=== PATIENT | male | born 1975 | race Caucasian/White ===

== ENCOUNTER 2020-12-28 12:48 | Inpatient (IN) | payer MEDICARE, MEDICAID ==
[~2020-12-28] VITALS: Ht 193 cm; Wt 64.9 kg
[2020-12-28 12:49] VITALS: BP 107/72
[2020-12-28] MEDS ORDERED: LEVE500T99 PO (13:13)
[2020-12-28] MEDS ORDERED: CREONC PO ×2 (13:15→14:03)
[2020-12-28] MEDS ORDERED: NF-SODBICA PO (13:18)
[2020-12-28] MEDS ORDERED: PETR113O TP (13:18)
[2020-12-28] MEDS ORDERED: ALLO100T56 PO (13:19)
[2020-12-28] MEDS ORDERED: CALC0.5C3 PO (13:22)
[2020-12-28] MEDS ORDERED: CALC200T2 PO (13:24)
[2020-12-28] MEDS ORDERED: CHOL200074 PO (13:27)
[2020-12-28] MEDS ORDERED: KETO15CR2 TP (13:31)
[2020-12-28] MEDS ORDERED: KETO120S13 TP (13:37)
[2020-12-28] MEDS ORDERED: PROTONIX DR (13:39)
[2020-12-28] MEDS ORDERED: PROTONIX DR PO (13:41)
[2020-12-28] MEDS ORDERED: PRED5TAB PO (13:42)
[2020-12-28] MEDS ORDERED: TACR1CAP24 PO (13:45)
[2020-12-28] MEDS ORDERED: TERI202.4P SQ ×2 (13:48→16:29)
[2020-12-28] MEDS ORDERED: EPOE10008 IJ (13:51)
[2020-12-28] MEDS ORDERED: LACTULOSE SYRUP 10GM/15ML (ENULOSE) 30ML UDC PO PRN (14:00)
[2020-12-28] MEDS ORDERED: FLEET ENEMA ADULT 1 EA BTL PR PRN (14:00)
[2020-12-28] MEDS ORDERED: DOCUSATE SODIUM 100 MG (COLACE) CAP PO PRN (14:00)
[2020-12-28] MEDS ORDERED: BISACODYL 10 MG SUPP (DULCOLAX) PR PRN (14:00)
[2020-12-28] MEDS ORDERED: CALCIUM CARBONATE 500 MG (TUMS) TAB.CHEW PO PRN (14:00)
[2020-12-28] MEDS ORDERED: ONDANSETRON 4 MG (ZOFRAN) ORAL DISSOLVE TAB PO PRN (14:00)
[2020-12-28] MEDS ORDERED: ALPRAZolam 0.25 MG (XANAX) TAB PO PRN (14:00)
[2020-12-28] MEDS ORDERED: guaiFENesin/CODEINE (ROBITUSSIN AC) 10ML UDC PO PRN (14:00)
[2020-12-28] MEDS ORDERED: diphenhydrAMINE 25 MG TAB (BENADRYL) PO PRN (14:00)
[2020-12-28] MEDS ORDERED: MVI PO (14:06)
--- NOTE | 2020-12-28 14:07 | PM&R Post Admission Assessment ---
PM&R HP Date of Visit: Dec 28, 2020 Time of Visit: 15:30 History of Present Illness CC: Critical illness myopathy HPI: This is a 45yoWM with mild intellectual deficit who resides with his brother and his family who presents to the IRF after a complicated hospital course at [facility] after admitted on 12/14/20 due to sepsis from severe dehydration from severe diarrhea s/p sigmoidoscopy and ultimately revealing Noravirus on stool culture. Patient received renal transplant in 2013 and is on chronic immunosuppression. Patient did experience a seizure on 12/15 and 12/19 and maintained on Keppra. I met his brother who reports he just moved to a new house where there is 2 master bedrooms and patient will live with his brother and his family upon DC from IRF. Patient reports pain is stable at this current time and it appears Creon has been very successful in managing the diarrhea. Neuroendocrine tumor w/u was initiated and no evidence of tumor found. Patient will receive structured PT OT in order to regain function and return to independence. [facility] note: Zacarias Boyd is a 45 y.o. male with PMH of ESRD / PKD s/p DDRT 09/2014 ( on chronic immunosuppression) and mild cognitive impairment who presented with chronic diarrhea complicated by severe malnutrition and electrolyte derangements. Rapid responded 12/15 due to hypothermia and transferred to the ICU with concern for sepsis. While in the ICU, due to concern for sepsis, patient was started on vancomycin, cefepime and micafungin. ID was consulted and discontinued antibiotics eventually. Extensive infectious disease work-up was completed. ENT consulted due to Otomastoiditis seen on CT on admission noted but no treatment recommend. He developed seizures (12/15 and 12/19) in which neurology was consulted and he was loaded with Keppra. Seizures believed to be secondary to cefepime, which he was on empirically for septic shock lowering seizure threshold. While in the ICU, patient required a bicarb drip. GI c onsulted for work up of chronic diarrhea and performed flex sig 12/23, which revealed normal findings. GI started patient on Creon and this will be continued for 6 weeks. Diarrhea improved prior to discharge. Hematology was consulted for pancytopenia, though believed condition was likely due to new metastatic neuroendocrine tumor, as Chromogranin A level elevated (likely falsely positive per Oncology due to patient being on chronic PPI and chronic liver disease). Octreotide scan did not reveal somatostatin receptor-positive mass. MRI abdomen w/wo contrast did not reveal malignant mass. Hematology recommended oncology consult. Oncology was consulted and recommended PET scan outpatient to follow-up octreotide scan and further work-up for any concerns for malignancy. Transplant nephrology consulted and assisted with immunosuppression. Patient was discharged on prednisone 5 mg daily. MPA was held during the hospitalization and upon discharge. Work-up from ID recs revealed norovirus positive PCR in the stool. Patient diarrhea improved throughout hospitalization. PT/OT recommended short tern SNF placement. Patient was stable upon discharge. noe: Zacarias Boyd Date Of : 1975 Age: 45 years Admit date: 12/14/2020 Discharge date: 12/28/2020 Discharge Attending: Dr. 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 Biopsied. Retroflexion not attempted secondary to stool burden. - 12/14 chromogranin A elevated at 2598, pancreatic elastate-1 220, gastrin elevated at 292, calprotectin elevated at 605, VIP wnl, - 12/22 repeat CMV PCR <50 from 84 12/15, adenovirus PCR stool negative, - 12/23 CT chest wo contrast ordered to evaluate for metastatic neuroendocrine tumor. Revealed no thoracic LN, few tiny pulm nodules likely benign), small bilateral pleural effusion. Will need f/u CT in 3-6 months to ensure stability of nodules - 12/24 MRI abdomen w/wo contrast without pancreatic mass/lesion, diffuse low signal throughout osseous structures could represent renal osteodystrophy, small bilateral pleural effusions with mild ascites - 12/22 norovirus PCR positive, though patient no longer having diarrhea. Tr opheryma whipplei serum negative, microsporidia PCR negative - 12/25 octreotide scan with no somatastatin receptor-positive mass - CT head (12/15) significant for right mastoid and middle ear effusions c/w otomastoiditis. No bleed or mass effect - FK506 tacro level elevated (22, 17) - EEG indicative of severe encephalopathy, no active seizure activity -12/19 Cryptococcal Ag neg, HSV 1&2 CSF PCR, EBV PCR negative, Enterovirus PCR inconclusive (presence of an inhibitor) - 12/20 MRI head: Focal juxtacortical FLAIR hyperintensity within the deep right superior temporal gyrus. While indeterminate, leading considerations include focal cortical dysplasia, solitary demyelinating lesion, atypical gliotic sequelae of nonspecific prior insult, or low-grade glioma. MRI brain (3T) with and without contrast, epilepsy protocol, could be performed for further evaluation - iron panel with normal iron of 96 and ferritin elevated at 597 - B12 and folate wnl - HIV negative - LDH 120, retic decreased, haptoglobin normal - INR 1.4, PTT wnl - Peripheral smear with normocytic anemia - EBV, parvo negative Significant Pathology: none Nutrition: Dietitian Documentation ICD-10 code E43: Acute illness/Severe malnutrition Weight loss: > 7.5% x 3 months, Energy intake: < 50% of estimated energy requirement for 5 days or more, Moderate loss of muscle mass Loss of Subcutaneous Fat: Yes Mild Orbital, Triceps Muscle Wasting: Yes Severe [place], Clavicle, Interosseous Edema: Yes Mild Left, Lower extremities, Right Malnutrition Interventions: Regular diet + Boost Plus TID + encouraged oral intake Discharge Disposition, Condition Patient Disposition: Residential Facility Condition at Discharge: Stable Dec 30, 2020 8:20 AM Telehealth PT Return with Erika Foote MD Endocrinology: [facility] (Internal Medicine) [address] [place] [address]. [address] [facility] [id number] Dec 30, 2020 3:15 PM Telehealth Clinical Support Return with IM MEDICAL NUTRITION THERAPY Internal Medicine: [facility] (Internal Medicine) [address] [facility] [phone] Jan 08, 2021 9:20 AM Telehealth PT New with Donnell Smith MD Gastroenterology: [facility] (Internal Medicine) [address] [facility] [id number] Additional appointment instructions: Follow up with PCP in 5-7 days. Medication List START taking these medications epoetin julio-epbx 10,000 unit/mL injection; Commonly known as: RETACRIT; Dose: 10,000 Units; Inject 1 mL under the skin three times weekly. Indications: anemia in chronic kidney disease; For: anemia in chronic kidney disease; Quantity: 1 each; Refills: 0; Start taking on: December 29, 2020 levETIRAcetam 500 mg tablet; Commonly known as: KEPPRA; Dose: 500 mg; Take one tablet by mouth twice daily.; Quantity: 60 tablet; Refills: 1 scvtlu-goitrdrh-hooldqb 6,000-19,000 -30,000 units capsule; Commonly known as: CREON 6000; Dose: 1 capsule; Take one capsule by mouth three times daily with meals.; Quantity: 90 capsule; Refills: 1 sodium bicarbonate 650 mg tablet; Dose: 650 mg; Take one tablet by mouth three times daily.; Quantity: 90 tablet; Refills: 0 vitamin A & D Oint; Apply topically to affected area as Needed.; Quantity: 1 Tube; Refills: 0 CHANGE how you take these medications cholecalciferol 50 mcg (2,000 unit) tablet; Commonly known as: VITAMIN D3; Dose: 2,000 Units; Take one tablet by mouth daily.; Quantity: 90 tablet; Refills: 3; What changed: when to take this * ketoconazole 2 % topical cream; Commonly known as: NIZORAL; Apply to rash twice daily on the face until resolved.; Quantity: 60 g; Refills: 11; What changed: when to take this, reasons to take this * ketoconazole 2 % topical shampoo; Commonly known as: NIZORAL; Apply topically to chest and back on damp skin, lather, leave on 5 minutes, and rinse.; Quantity: 120 g; Refills: 11; What changed: when to take this, reasons to take this * This list has 2 medication(s) that are the same as other medications prescribed for you. Read the directions carefully, and ask your doctor or other care provider to review them with you. CONTINUE taking these medications allopurinoL 100 mg tablet; Commonly known as: ZYLOPRIM; Dose: 50 mg; Doctor's comments: 03/13/2019 9:09:32 AM; Take one-half tablet by mouth daily. This is a reduced dose from your previous regimen.; Quantity: 45 tablet; Refills: 1 CALCITRATE 950 mg Tab; Generic drug: calcium citrate; Dose: 3,800 mg; Take four tablets by mouth with meals and at bedtime.; Quantity: 300 tablet; Refills: 1 calcitrioL 0.5 mcg capsule; Commonly known as: ROCALTROL; Dose: 1 mcg; Take two capsules by mouth twice daily.; Quantity: 60 capsule; Refills: 3 FORTEO 20 mcg/dose (600mcg/2.4mL) Pnij injection pen; Generic drug: teriparatide; Dose: 20 mcg; Inject twenty mcg under the skin daily.; Quantity: 3 mL; Refills: [address] 40 mg tablet; Commonly known as: PROTONIX; Dose: 40 mg; Take one tablet by mouth twice daily.; Quantity: 60 tablet; Refills: 3 predniSONE 5 mg tablet; Commonly known as: DELTASONE; Dose: 5 mg; TAKE ONE TABLET BY MOUTH DAILY. INDICATIONS: PREVENT KIDNEY TRANSPLANT REJECTION; For: prevent kidney transplant rejection; Quantity: 30 tablet; Refills: 10 tacrolimus 1 mg capsule; Commonly known as: PROGRAF; Dose: 3 mg; Doctor's comments: CORINA [id number] ICD 10 Z94.0 Dose change; place to file; Take three capsules by mouth twice daily.; Quantity: 540 capsule; Refills: 3 vitamins, multiple tablet; Dose: 1 tablet; Take 1 Tab by mouth daily.; Quantity: 90 Tab; Refills: 3 STOP taking these medications carvediloL 6.25 mg tablet; Commonly known as: COREG clindamycin 1 % topical solution; Commonly known as: CLINDA-DERM EPOGEN 10,000 unit/mL injection; Generic drug: epoetin julio ferrous sulfate 325 mg (65 mg iron) tablet; Commonly known as: FEOSOL loperamide 2 mg capsule; Commonly known as: IMODIUM A-D mycophenolate DR 180 mg Tbec tablet; Commonly known as: MYFORTIC Past Zlxgnsb-Qdldre-Omxphv Hx Past Med/Social Hx: Reviewed Nursing Past Med/Soc Hx, Reviewed and Corrections made Patient Social History Marrital Status: single Employed/Student: unemployed Alcohol Use: Denies Use Smoking Status: Never a Smoker Past Medical History Surgeries: Kidney Transplant (2013) Neurological: Developmental Disorder, Seizure Disorder (12/15/20 new onset) Genitourinary: Renal Failure, Dialysis, Polycystic Kidney Disease Gastrointestinal: Chronic Diarrhea Current Level of Fuctioning Mode of Locomotion: Wheelchair PM&R Allergy/Meds/Data Review Allergies Coded Allergies: No Known Allergies (Verified Allergy, Unknown, 12/28/20) Home Medications Scheduled Allopurinol (Zyloprim), 50 MG PO DAILY Calcitriol (Rocaltrol), 0.5 MCG PO 2 CAPSULES PO BID Calcium Citrate (Calcitrate), 950 MG PO 4 TABLETS PO W MEALS Cholecalciferol (Vitamin D3) (Vitamin D3), 50 MCG PO DAILY Epoetin Julio-Epbx (Retacrit), 10,000 UNIT IJ [id number] Ketoconazole (Ketoconazole), 15 GM TP BID TO FACE UNTIL R Ketoconazole (Ketoconazole), 120 ML TP HS Levetiracetam (Keppra), 500 MG PO BID Lipase/Amylase/Protease (Creon Dr 6,000 Units Capsule), 1 EA PO TIDWM Petrolatum,White/Lanolin (Vitamin A & D Ointment), 113 GM TP PRN Prednisone (Prednisone), 5 MG PO DAILY Sodium Bicarbonate (Sodium Bicarbonate), 650 MG PO TID Tacrolimus (Prograf), 3 MG PO BID Teriparatide (Forteo), 20 MCG SQ DAILY [Mvi], 1 TAB PO DAILY [Protonix Dr], 1 PO BID Current Medications Current Medications Reviewed Review of Systems Constitutional: see HPI, malaise, weakness EENTM: no symptoms reported Respiratory: no symptoms reported Cardiovascular: no symptoms reported Gastrointestinal: no symptoms reported Genitourinary: no symptoms reported Musculoskeletal: back pain, joint pain Skin: no symptoms reported Psychiatric/Neurological: Emotional Problems, Seizure All Other Systems Reviewed Negative Unless Noted: Yes Physical Exam Physical Exam Vital Signs Vital Signs - First Documented 12/28/20 12:49 Temp 36.8 Pulse 93 Resp 22 B/P (MAP) 107/72 (84) Pulse Ox 99 O2 Delivery Room Air Capillary Refill : Height, Weight, BMI Height: '" Weight: lbs. oz. kg; BMI Method: General Appearance: No Apparent Distress, WD/WN, Anxious, Chronically ill, Thin, Other (pale, fatigued) Eyes: Bilateral Eye Normal Inspection, Bilateral Eye PERRL HEENT: PERRL/EOMI, Normal ENT Inspection, Pharynx Normal Neck: Full Range of Motion, Normal Inspection, Non Tender, Supple, Carotid Bruit Respiratory: Chest Non Tender, Lungs Clear, Normal Breath Sounds, No Accessory Muscle Use, No Respiratory Distress Cardiovascular: Regular Rate, Rhythm, No Gallop, No JVD, No Murmur, Normal Peripheral Pulses Gastrointestinal: Normal Bowel Sounds, No Organomegaly, No Pulsatile Mass, Non Tender, Soft Back: Normal Inspection, No CVA Tenderness, No Vertebral Tenderness Extremity: Normal Capillary Refill, Normal Inspection, Normal Range of Motion, Non Tender, No Calf Tenderness, Pedal Edema Neurologic/Psychiatric: Alert, Oriented x3, Normal Mood/Affect, network programmer II-XII Norm as Tested, Abnormal Gait, Disoriented, Motor Weakness (decreased extremities 4/5) Skin: Normal Color, Warm/Dry Lymphatic: No Adenopathy PM&R Medical Assessment & Plan REHAB/MEDICAL ASSESSMENT AND PLAN: REHAB IMPAIRMENT GROUP: Myopathy ETIOLOGIC DIAGNOSIS: Myopathy The comorbidities that impact the patients function and/or functional outcome by: intellectual delay, immunosuppression, renal transplant, severe diarrhea REHAB PLAN: The patient is being admitted to our comprehensive inpatient rehabilitation facility and can tolerate the intensity of service consisting of at least: 180 minutes of therapy a day, 5 out of 7 days a week Rehab treatment will consist of: PT OT will focus on regaining function and kenyatta ble him to return to independent living with his brother and his family The patient/family has a good understanding of our discharge process and will benefit from an interdisciplinary inpatient rehabilitation program. The patient has potential to make improvement and is in need of at least two of the following multidisciplinary therapies including but not limited to physical, occupational, speech, and prosthetics and orthotics. Additionally the patient will need services from respiratory, nutritional services, wound care, psychology, etc. (Customize this to each patient). Given the patients complex condition and risk of further medical complications, rehabilitation services cannot be safely or effectively provided at a lower level of care such as a senior care facility. BARRIERS TO DISCHARGE: Intellectual delay ESTIMATED LOS: 14 days DISPOSITION: Home RELEVANT CHANGES SINCE PREADMISSION SCREENING: I have compared the patients medical and functional status at the time of the preadmission screening and there are: no changes PROGNOSIS: Improved REHABILITATION GOALS: 1. PT OT will focus on regaining function and enable him to return to independent living with his brother and his family All the above goals were reviewed with the patient and he/she is in agreement. By signing this document, I acknowledge that I have personally performed a full physical examination on this patient within 24 hours of admission to this inpatient rehabilitation facility and have determined the patient to be able to tolerate the above course of treatment at an intensive level for a reasonable period of time. I will be completing a detailed individualized Plan of Care for this patient by day #4 of the patients stay based upon the Preadmission Screen, the Post-Admission Evaluation, and the therapy evaluations. Admission Dx/Comorbidities: (1) Myopathy ICD Codes: G72.9 - Myopathy, unspecified (2) Seizure ICD Codes: R56.9 - Unspecified convulsions (3) Chronic diarrhea ICD Codes: K52.9 - Noninfective gastroenteritis and colitis, unspecified (4) Hypocalcemia ICD Codes: E83.51 - Hypocalcemia (5) Renal transplant recipient ICD Codes: Z94.0 - Kidney transplant status (6) PKD (polycystic kidney disease) ICD Codes: Q61.3 - Polycystic kidney, unspecified (7) Intellectual disability ICD Codes: F79 - Unspecified intellectual disabilities (8) Hypomagnesemia ICD Codes: E83.42 - Hypomagnesemia (9) Anemia ICD Codes: D64.9 - Anemia, unspecified (10) Buttock wound ICD Codes: S31.809A - Unspecified open wound of unspecified buttock, initial encounter (11) Port-A-Cath in place ICD Codes: Z95.828 - Presence of other vascular implants and grafts (12) Cachexia ICD Codes: R64 - Cachexia (13) Vitamin D deficiency ICD Codes: E55.9 - Vitamin D deficiency, unspecified (14) Steroid dependence ICD Codes: F19.20 - Other psychoactive substance dependence, uncomplicated Assessment/Plan Assessment and Plan Assess & Plan/Chief Complaint Assessment: Myopathy Intellectual disability Cachexia Seizure d/o 12/15/20 new onset Chronic diarrhea Anemia Hypocalcemia Metabolic acidosis Prednisone dependence Plan: IRF protocol Check labs Monitor pain Seizure precautions ORAL RIVERA DO Dec 28, 2020 14:07
[2020-12-28] MEDS ORDERED: EPOETIN ALFA EPBX 10000 UNIT IJ SCH (15:15)
[2020-12-28] MEDS ORDERED: PATIENT MAY USE OWN MEDS, ALL MC SCH ×2 (15:30→16:15)
[2020-12-28] MEDS ORDERED: A & D OINT 113 GM TUBE TOP SCH (15:30)
[2020-12-28 17:32] VITALS: BP 128/83
[2020-12-28] MEDS: CALCIUM CITRATE 950 MG PO SCH (18:21)
[2020-12-28] MEDS: LIPASE/AMYLASE/PROTEASE (PANCRELIPASE) 5,000 UNITS CAP PO SCH (18:21)
[2020-12-28] MEDS ORDERED: KETOCONAZOLE 2% CREAM 15 GM (NIZORAL) TP SCH (21:00)
[2020-12-28] MEDS ORDERED: KETOCONAZOLE TP SCH (21:00)
[2020-12-28] MEDS: SENNA W/DOCUSATE (SENOKOT S) TABLET PO SCH (21:23)
[2020-12-28] MEDS: CALCITRIOL 0.25 MCG (ROCALTROL) CAPSULE PO SCH (21:23)
[2020-12-28] MEDS: PANTOPRAZOLE 40 MG (PROTONIX) TAB PO SCH (21:23)
[2020-12-28] MEDS: SODIUM BICARBONATE 650 MG TABLET (NON-FORMULARY) PO SCH (21:25)
[2020-12-28] MEDS: DOCUSATE SODIUM 100 MG (COLACE) CAP PO SCH (21:25)
[2020-12-28] MEDS: TACROLIMUS 1 MG (PROGRAF) CAP NON-FORMULARY PO SCH (21:26)
[2020-12-28] MEDS: polyethylene glycoL POWDER 17 GM (MIRALAX) PACK PO SCH (21:26)
[2020-12-29 05:45] LABS: BASOPHILS % (AUTO) 0 % (0-10); EOSINOPHILS # (AUTO) 0.1 10^3/uL (0.0-0.3); EOSINOPHILS % (AUTO) 3 % (0-10); HEMATOCRIT 28 % (40-54); HEMOGLOBIN 8.2 g/dL (13.3-17.7); LYMPHOCYTES # (AUTO) 0.8 10^3/uL (1.0-4.0); LYMPHOCYTES % (AUTO) 30 % (12-44); MEAN CORPUSCULAR HEMOGLOBIN 32 pg (25-34); MEAN CORPUSCULAR HGB CONC 30 g/dL (32-36); MEAN CORPUSCULAR VOLUME 106 fL (80-99); MEAN PLATELET VOLUME 10.8 fL (9.0-12.2); MONOCYTES # (AUTO) 0.3 10^3/uL (0.0-1.0); MONOCYTES % (AUTO) 11 % (0-12); NEUTROPHILS # (AUTO) 1.4 10^3/uL (1.8-7.8); NEUTROPHILS % (AUTO) 56 % (42-75); PLATELET COUNT 181 10^3/uL (130-400); WHITE BLOOD COUNT 2.5 10^3/uL (4.3-11.0)
[2020-12-29 05:55] LABS: ALBUMIN 2.5 GM/DL (3.2-4.5); POTASSIUM 5.3 MMOL/L (3.6-5.0)
[2020-12-29 05:56] LABS: CALCIUM 7.2 MG/DL (8.5-10.1)
[2020-12-29 05:58] LABS: TOTAL PROTEIN 4.3 GM/DL (6.4-8.2)
[2020-12-29 05:59] LABS: BILIRUBIN,TOTAL 0.4 MG/DL (0.1-1.0)
[2020-12-29 06:00] VITALS: BP 114/71
[2020-12-29 06:01] LABS: CREATININE SERUM 1.73 MG/DL (0.60-1.30)
[2020-12-29] MEDS: MULTIVIT W/MINERALS TAB (THERAGRAN M) PO SCH (06:35)
--- NOTE | 2020-12-29 08:37 | Physical Therapy Evaluation ---
PT Evaluation-General Medical Diagnosis Admission Date Dec 28, 2020 at 12:48 Medical Diagnosis: Toxic Metabolic Encephalopathy Onset Date: Dec 28, 2020 Therapy Diagnosis Therapy Diagnosis: weakness; abn gait Precautions Precautions/Isolations: Fall Prevention, Standard Precautions, Pressure Ulcer Referral Physician: Carlos Reason for Referral: Evaluation/Treatment Medical History Pertinent Medical History: HTN Additional Medical History Kidney Transplant, mental impairment, seizures, acute chronic diarrhea, bradycardia, hypernatremia, osteoporosis. Current History Pt is post acute hospital stay that initiated with chronic diarrhea that had worsened over the past 3-4 months leading to malnutrition and functional weakness impairing his ability to care for himself. He also presents with ESRD and chronic immunosuppression. Pressure ulcer on coccyx. Intubated 12/15/20 and extubated 12/17/20 He is post complicated hospital course at [facility] after admitted on 12/14/20 due to sepsis from severe dehydration from severe diarrhea s/p sigmoidoscopy and ultimately revealing Noravirus on stool culture. Patient received renal transplant in 2013 and is on chronic immunosuppression. Patient did experience a seizure on 12/15 and 12/19 and maintained on Keppra Reviewed History: Yes Social History Current Living Status: Other Family (brother and sister in law) Unsure of exact set up of the house in terms of number of levels or steps. Prior Prior Level of Function SCALE: Activities may be completed with or without assistive devices. 1-Tfkyuqtcpz-ftjdktz completes the activity by him/herself with no assistance from a helper. 5-Set-up or Clean-up Assistance-helper sets up or cleans up; patient completes activity. [place] assists only prior to or following the activity. 4-Supervision or Touching Assistance-helper provides verbal cues and/or touching/steadying and/or contact guard assistance as patient completes activity. Assistance may be provided throughout the activity or intermittently. 3-Partial/Moderate Assistance-helper does LESS THAN HALF the effort. [place] lifts, holds or supports trunk or limbs, but provides less than half the effort. 2-Substantial/Maximal Assistance-helper does MORE THAN HALF the effort. [place] lifts or holds trunk or limbs and provides more than half the effort. 8-Cdkdqowjy-cntdbz does ALL the effort. Patient does none of the effort to complete the activity. Or, the assistance of 2 or more helpers is required for the patient to complete the activity. If activity was not attempted, code reason: 7-Patient Refused. 9-Not Applicable-not attempted and the patient did not perform the activity before the current illness, exacerbation or injury. 10-Not Attempted due to Environmental Limitations-(lack of equipment, weather restraints, etc.). 88-Not Attempted due to Medical Conditions or Safety Concerns. Bed Mobility: 6 Transfers (B,C,W/C): 6 Gait: 6 (Did not use an AD) Stairs: 6 PT Evaluation-Current Subjective Pt is agreeable to PT./ He does report he is getting stronger and that he did walk around some at the other hospital. Pain Comment: Intermittently, pt reports right hip pain, then LBP then left knee pain, Pt/Family Goals pt plans to return to living with his brother and CLARISSA at discharge. Objective Patient Orientation: Person, Place, MR (mild), Time, Situation ROM/Strength ROM Lower Extremities WNL Strength Lower Extremities grossly 4-/5 throughout Integumentary/Posture Integumentary refer to nursing notes; history indicated coccyx wound; it was not visualized by this therapist. Posture Pt tends to present with head forward and down with significant thoracic kyphosis; however with cuing, he is able to come to neutral; shoulders are symmetrical; his chest wall is convex and narrow, this is visualized in supine. Neuromuscular (Tone, Coordination, Reflexes) Intact and appear functional Sensory Vision: Wears Glasses Hearing: Functional Hand Dominance: Left Sensation Right Lower Extremit: Intact Sensation Left Lower Extremity: Intact Transfers Roll Left & Right (QC): 4 Sit to Lying (QC): 4 Lying to Sitting/Side of Bed(Q: 3 (light assist to guide legs) Sit to Stand (QC): 3 (occas min assist to come to a full stand; heavy use of arms to push up) Chair/Zkw-em-Usiwg Xfer(QC): 3 (min assist to steady him) Toilet Transfer (QC): 3 Car Transfer (QC): 3 (light assist with legs to get into car) Gait Does the Patient Walk?: Yes Mode of Locomotion: Walk Anticipated Mode of Locomotion: Walk Walk 10 feet (QC): 3 (CGA) Walk 50 ft with 2 Turns(QC): 3 (CGA) Walk 150 ft (QC): 3 (CGA) Walking 10ft/uneven surface-QC: 3 (CGA) Distance: 150 ft x 4 reps Gait Assistive Device: FWW Comments/Gait Description Decreased foot clearance B but more pronounced on the left. Tends to keep head down and shoulders rounded, corrects with cuing. Wheelchair Training Does the Pt Use a Wheelchair?: No Wheel 50 ft with 2 turns (QC): 9 Wheel 150 ft (QC): 9 Stairs 1 Step (curb) (QC): 3 (min assist as he steps up) 4 Steps (QC): 3 (min assist for balance and safety; used B handrails) 12 Steps (QC): 88 Balance Sitting Static: Normal Sitting Dynamic: Normal Standing Static: Fair Standing Dynamic: Fair Picking up an Object (QC): 88 Treatment Functional gait and transfer training; ther ex to include supine: AP, heel slide and QS x 15 each; seated AP, LAQ and hip abd/add x 15 each Pt in chair with call light in reach; Chair alarm activated post treatment. Assessment/Needs Post complicated acute hospital course that has rendered him with decreased functional strngth, balance, activity tolerance that impairs transfers, bed mobility and gait as well as limited distance. He was indep at [facility] and able to care for himself. Currently, he requires assist with all mobility and is unable to safely complete upright tasks on his own. He will benefit from skilled PT to address these deficits and allow him to return home as before at his prior [facility] and able to mobilize without assist. Rehab Potential: Good PT Short Term Goals Short Term Goals Time Frame: Jan 05, 2021 Sit to lyin Lying to sitting on side of be: 5 Sit to stand: 4 Chair/rid-rn-txkjt transfer: 4 Walk 150 feet: 4 4 steps: 4 PT Shelter Goals Shelter Goals PT Operations Support Manager Goals Time Frame: Jan 19, 2021 Roll Left & Right (QC): 6 Sit to Lying (QC): 6 Lying-Sitting on Side/Bed(QC): 6 Sit to Stand (QC): 6 Chair/Lav-xe-Nqixq Xfer(QC): 6 Toilet Transfer (QC): 6 Car Transfer (QC): 6 Does the Patient Walk: Yes Walk 10 feet (QC): 6 Walk 50ft with 2 Turns (QC): 6 Walk 150 ft (QC): 6 Walking 10ft on Uneven Surface: 6 1 Step (curb) (QC): 6 4 Steps (QC): 6 12 Steps (QC): 4 Picking up an Object (QC): 4 Does the Pt use WC or Scooter?: No Wheel 50 feet with 2 turns (QC: 9 Wheel 150 feet: 9 PT Plan Problem List Problem List: Activity Tolerance, Functional Strength, Safety, Balance, Gait, Transfer, Bed Mobility Treatment/Plan Treatment Plan: Continue Plan of Care Treatment Plan: Bed Mobility, Education, Functional Activity Berta, Functional Strength, Group Therapy, Gait, Safety, Therapeutic Exercise, Transfers Treatment Duration: Jan 19, 2021 Frequency: At least 5 of 7 days/Wk (IRF) Estimated Hrs Per Day: 1.5 hours per day (1 to 1. 5) Patient and/or Family Agrees t: Yes Safety Risks/Education Patient Education: Transfer Techniques, Safety Issues Teaching Recipient: Patient Teaching Methods: Discussion Response to Teaching: Reinforcement Needed Time/GCodes Time In: 900 Time Out: 1015 Total Billed Treatment Time: 75 Total Billed Treatment visit EVM 15 FA 30 GT 15 EX 15 DEJON BRYSON PT Dec 29, 2020 08:37
[2020-12-29] MEDS: predniSONE 5 MG TAB PO SCH (09:59)
[2020-12-29] MEDS: LIPASE/AMYLASE/PROTEASE (PANCRELIPASE) 5,000 UNITS CAP PO SCH ×3 (10:02→17:34)
[2020-12-29] MEDS: CALCITRIOL 0.25 MCG (ROCALTROL) CAPSULE PO SCH ×2 (10:02→21:25)
[2020-12-29] MEDS: ALLOPURINOL 100 MG (ZYLOPRIM) TAB PO SCH (10:03)
[2020-12-29] MEDS: VITAMIN D3 25 MCG (1,000 UNITS) TABLET PO SCH (10:03)
[2020-12-29] MEDS: SENNA W/DOCUSATE (SENOKOT S) TABLET PO SCH ×2 (10:07→21:25)
[2020-12-29] MEDS: DOCUSATE SODIUM 100 MG (COLACE) CAP PO SCH ×2 (10:07→21:25)
[2020-12-29] MEDS: polyethylene glycoL POWDER 17 GM (MIRALAX) PACK PO SCH ×2 (10:07→21:27)
[2020-12-29] MEDS: SODIUM BICARBONATE 650 MG TABLET (NON-FORMULARY) PO SCH ×3 (10:17→21:26)
[2020-12-29] MEDS: TACROLIMUS 1 MG (PROGRAF) CAP NON-FORMULARY PO SCH ×2 (10:18→21:27)
[2020-12-29] MEDS: PANTOPRAZOLE 40 MG (PROTONIX) TAB PO SCH ×2 (10:21→21:25)
[2020-12-29] MEDS: CALCIUM CITRATE 950 MG PO SCH ×3 (10:21→17:35)
--- NOTE | 2020-12-29 10:33 | PM&R Progress Note ---
Subjective HPI/CC On Admission Date Seen by Provider: Dec 29, 2020 Time Seen by Provider: 10:40 Subjective/Events-last exam 12/29/20: Pt doing pretty well Spilled his urinal and got upset with himself WBC 2.5, Hgb 8.2 Checking iron level Creatinine 1.73 Albumin 2.5 and potassium 5.3 Goes by jeronimo Adames Review of Systems General: Fatigue, Malaise Neurological: Weakness Objective Exam Vital Signs Vital Signs Date Time Temp Pulse Resp B/P (MAP) Pulse Ox O2 Delivery O2 Flow Rate FiO2 12/29/20 21:00 Room Air 12/29/20 17:43 36.8 102 20 110/73 (85) 98 Capillary Refill : General Appearance: No Apparent Distress, WD/WN, Anxious, Chronically ill, Thin , Other (pale, fatigued) HEENT: PERRL/EOMI, Normal ENT Inspection, Pharynx Normal Neck: Full Range of Motion, Normal Inspection, Non Tender, Supple, Carotid Bruit Respiratory: Chest Non Tender, Lungs Clear, Normal Breath Sounds, No Accessory Muscle Use, No Respiratory Distress Cardiovascular: Regular Rate, Rhythm, No Gallop, No JVD, No Murmur, Normal Peripheral Pulses Gastrointestinal: Normal Bowel Sounds, No Organomegaly, No Pulsatile Mass, Non Tender, Soft Back: Normal Inspection, No CVA Tenderness, No Vertebral Tenderness Extremity: Normal Capillary Refill, Normal Inspection, Normal Range of Motion, Non Tender, No Calf Tenderness, Pedal Edema Neurologic/Psychiatric: Alert, Oriented x3, Normal Mood/Affect, trademark affixer II-XII Norm as Tested, Abnormal Gait, Disoriented, Motor Weakness (decreased extremities 4/5) Skin: Normal Color, Warm/Dry Lymphatic: No Adenopathy Results/Procedures Lab Patient resulted labs reviewed. FIM Transfers Therapy Code Descriptions/Definitions Functional [place] Measure: 0=Not Assessed/NA 4=Minimal Assistance 1=Total Assistance 5=Supervision or Setup 2=Maximal Assistance 6=Modified [place] 3=Moderate Assistance 7=Complete IndependenceSCALE: Activities may be completed with or without assistive devices. 9-Upqmmdamhe-seidsmh completes the activity by him/herself with no assistance from a helper. 5-Set-up or Clean-up Assistance-helper sets up or cleans up; patient completes activity. [place] assists only prior to or following the activity. 4-Supervision or Touching Assistance-helper provides verbal cues and/or touching/steadying and/or contact guard assistance as patient completes activity. Assistance may be provided throughout the activity or intermittently. 3-Partial/Moderate Assistance-helper does LESS THAN HALF the effort. [place] lifts, holds or supports trunk or limbs, but provides less than half the effort. 2-Substantial/Maximal Assistance-helper does MORE THAN HALF the effort. [place] lifts or holds trunk or limbs and provides more than half the effort. 4-Tbraxlucl-ubhzll does ALL the effort. Patient does none of the effort to complete the activity. Or, the assistance of 2 or more helpers is required for the patient to complete the activity. If activity was not attempted, code reason: 7-Patient Refused. 9-Not Applicable-not attempted and the patient did not perform the activity before the current illness, exacerbation or injury. 10-Not Attempted due to Environmental Limitations-(lack of equipment, weather restraints, etc.). 88-Not Attempted due to Medical Conditions or Safety Concerns. Assessment/Plan Assessment and Plan Assess & Plan/Chief Complaint Assessment: Myopathy Intellectual disability Cachexia Seizure d/o 12/15/20 new onset Chronic diarrhea Anemia Hypocalcemia Metabolic acidosis Prednisone dependence Plan: IRF protocol Check labs Monitor pain Seizure precautions 12/29/20: Monitor closely Increase diet Monitor creat and hgb (1) Myopathy (2) Seizure (3) Chronic diarrhea (4) Hypocalcemia (5) Renal transplant recipient (6) PKD (polycystic kidney disease) (7) Intellectual disability (8) Hypomagnesemia (9) Anemia (10) Buttock wound (11) Port-A-Cath in place (12) Cachexia (13) Vitamin D deficiency (14) Steroid dependence ORAL RIVERA DO Dec 29, 2020 10:32
[2020-12-29] MEDS: TERIPARATIDE 600 MCG/2.4 ML (FORTEO) SYR SQ SCH ×2 (10:46→15:53)
--- NOTE | 2020-12-29 11:40 | ST Cognitive Linguistic Eval ---
Speech Evaluation-General Medical Diagnosis Toxic Metabolic Encephalopathy Onset Date: Dec 28, 2020 Therapy Diagnosis Therapy Diagnosis: Cognitive-communication Referral Referring Physician: Dr. Gonzalez Medical History Pertinent Medical History: HTN Reviewed History: Yes Social History Current Living Status: Other Family (brother and sister in law) Speech PLF-Current Status Prior Level of Function Patient lived with his brother and family where he was independent for his daily needs. Subjective Patient was pleasant and cooperative with the cognitive assessment. Language Eval: Auditory Comprehends Simple Yes/No Ques: Functional Indent/Objects Multiple [place]: Functional Ident/Pics in Multiple [place]: Functional Follows 1-Step Commands: Functional Follows Complex Directions: Mild Follows General Conversations: Functional Language Eval: Verbal Language Completes Spontaneous Greeting: Functional Produces Auto, Serial Info: Functional Imitates Simple Words/Phrases: Functional Word Finding: Mild Requests Basic Needs: Functional States Basic Personal Info: Functional Expresses Complex Ideas: Mild Objective Cognitive Domain Attention: WNL Memory: WNL Problem Solving: Functional Executive Functions: Mild Visuospatial Skills: WNL Composite Severity Rating: Mild Clock Drawing Severity Rating: Mild Objective Formal/Standardized Tests [facility] Status ([facility]), patient interview, informal ST tasks Results 23/30, Mild Neurocognitive Disorder, Patient's baseline range is mild due to intellectual challenge Oral Motor/Speech Production Within Normal Limits Impression Patient is a pleasant 45 y/o male who was admitted to the ARU s/p a complex acute admission at [facility]. Patient was admitted for strengthening because of his recent decline due to critical illness. Patient was given the SLUMS with a score of 22/30 which is considered his baseline. Patient's score is in the MNCD range of function. Patient is intellectually challenged, however ST is recommended due to recent decline. Patient's therapy will focus on safety awareness and cognitive rehab so that he may return home safer. Speech Patient Assess Expression of Ideas/Wants: Exhibits (3) Understanding Verbal Content: Usually Understands (3) Brief Interview-Mental Status: Yes Repetition of Three Words: Three (3) Temporal Orientation: Year: Correct (3) Temporal Orientation: Month: Accurate within 5 days(2) Temporal Orientation: Day: Correct (1) Recall : Wear to say "Sock": Yes,after cueing (1) Recall : Color: Yes, after cueing (1) Recall : Bed: Yes,after cueing (1) Memory/Recall Ability: Current season, That he or she is in a hsp/hsp unit Speech Short Term Goals Short Term Goals Short Term Goals 1) Patient will complete safety awareness tasks related to his daily needs with 80% or greater with minimal cuing. 2) Patient will complete cognitive tasks at his intellectual level with 80% or greater with minimal cuing. Speech Fare Collector Goals Fare Collector Goals Patient will improve his cognitive-communication skills in order to return to his prior level of function. Speech-Plan Patient/Family Goals Patient/Family Goals: Patient plans on returning to his home where he lives with his brother and family. Treatment Plan Speech Therapy Treatment Plan: Concurrent Therapy Treatment Duration: Jan 09, 2021 Frequency: 4 times per week (Patient will receive skilled ST 4-5x per week) Estimated Hrs Per Day: .5 hour per day Rehab Potential: Good Barriers to Learning: Patient is intellectually challenged with mild cognitve deficits at baseline. Pt/Family Agrees to Plan: Yes Safety Risks/Education Teaching Recipient: Patient Teaching Methods: Discussion Response to Teaching: Verbalize Understanding Education Topics Provided: Safety within his room and communication of wants/needs Time Speech Therapy Time In: 08:30 Speech Therapy Time Out: 09:00 Total Billed Time: 30 Billed Treatment Time 1, TOM PALOMO [place] ST Dec 29, 2020 11:40
--- NOTE | 2020-12-29 13:18 | Physical Therapy Daily Note ---
PT Daily Note-Current Subjective Agrees to PT after encouragement. "I did pretty good walking today"; pt reported after treatment Transfers SCALE: Activities may be completed with or without assistive devices. 3-Zlbghanvac-hhvvlyq completes the activity by him/herself with no assistance from a helper. 5-Set-up or Clean-up Assistance-helper sets up or cleans up; patient completes activity. [place] assists only prior to or following the activity. 4-Supervision or Touching Assistance-helper provides verbal cues and/or touching/steadying and/or contact guard assistance as patient completes activity. Assistance may be provided throughout the activity or intermittently. 3-Partial/Moderate Assistance-helper does LESS THAN HALF the effort. [place] lifts, holds or supports trunk or limbs, but provides less than half the effort. 2-Substantial/Maximal Assistance-helper does MORE THAN HALF the effort. [place] lifts or holds trunk or limbs and provides more than half the effort. 4-Astxfscvi-nokfgd does ALL the effort. Patient does none of the effort to complete the activity. Or, the assistance of 2 or more helpers is required for the patient to complete the activity. If activity was not attempted, code reason: 7-Patient Refused. 9-Not Applicable-not attempted and the patient did not perform the activity before the current illness, exacerbation or injury. 10-Not Attempted due to Environmental Limitations-(lack of equipment, weather restraints, etc.). 88-Not Attempted due to Medical Conditions or Safety Concerns. Treatments Sit to stand using lift recliner. Pt walked 150 ft x 2 with FWW with CGA and skilled cues for foot clearance and posture. Pt stood at sink to wash his hands with CGA post treatment. Pt in chair with call light in reach and chair alarm activated post treatment. Assessment Current Status: Good Progress Shuffled his feet more this afternoon, corrects with cuing. PT Short Term Goals Short Term Goals Time Frame: Jan 05, 2021 Sit to lyin Lying to sitting on side of be: 5 Sit to stand: 4 Chair/qvz-qw-qyrrw transfer: 4 Walk 150 feet: 4 4 steps: 4 PT Inspector Sheet Metal Parts Goals Inspector Sheet Metal Parts Goals PT Inspector Sheet Metal Parts Goals Time Frame: Jan 19, 2021 Roll Left & Right (QC): 6 Sit to Lying (QC): 6 Lying-Sitting on Side/Bed(QC): 6 Sit to Stand (QC): 6 Chair/Vnh-sd-Clkop Xfer(QC): 6 Toilet Transfer (QC): 6 Car Transfer (QC): 6 Does the Patient Walk: Yes Walk 10 feet (QC): 6 Walk 50ft with 2 Turns (QC): 6 Walk 150 ft (QC): 6 Walking 10ft on Uneven Surface: 6 1 Step (curb) (QC): 6 4 Steps (QC): 6 12 Steps (QC): 4 Picking up an Object (QC): 4 Does the Pt use WC or Scooter?: No Wheel 50 feet with 2 turns (QC: 9 Wheel 150 feet: 9 PT Plan Problem List Problem List: Activity Tolerance, Functional Strength, Safety, Balance, Gait, Transfer Treatment/Plan Treatment Plan: Continue Plan of Care Treatment Plan: Bed Mobility, Education, Functional Activity Berta, Functional Strength, Group Therapy, Gait, Safety, Therapeutic Exercise, Transfers Treatment Duration: Jan 19, 2021 Frequency: At least 5 of 7 days/Wk (IRF) Estimated Hrs Per Day: 1.5 hours per day (1 to 1. 5) Patient and/or Family Agrees t: Yes Safety Risks/Education Patient Education: Gait Training Teaching Recipient: Patient Teaching Methods: Demonstration, Discussion Response to Teaching: Reinforcement Needed Time/GCodes Time In: 1250 Time Out: 1313 Total Billed Treatment Time: 23 Total Billed Treatment visit GT 23 DEJON BRYSON PT Dec 29, 2020 13:18
--- NOTE | 2020-12-29 13:56 | Occupational Therapy Eval ---
OT Evaluation-General/PLF Medical Diagnosis Admission Date Dec 28, 2020 at 12:48 Medical Diagnosis: Toxic Metabolic Encephalopathy Onset Date: Dec 28, 2020 Therapy Diagnosis Therapy Diagnosis: weakness, decreased ADL status Precautions Precautions/Isolations: Fall Prevention, Standard Precautions, Pressure Ulcer Referral Physician: Carlos Zeng Reason: Evaluation/Treatment Medical History Pertinent Medical History: HTN Additional Medical History Kidney Transplant, mental impairment, seizures, acute chronic diarrhea, bradycardia, hypernatremia, osteoporosis, anemia, seizures Current History Pt is post acute hospital stay that initiated with chronic diarrhea that had worsened over the past 3-4 months leading to malnutrition and functional weakness impairing his ability to care for himself. He also presents with ESRD and chronic immunosuppression. Pressure ulcer on coccyx. Intubated 12/15/20 and extubated 12/17/20. He is post complicated hospital course at [facility] after admitted on 12/14/20 due to sepsis from severe diarrhea s/p sigmoidoscopy and ultimately revealing Noravirus on stool culture. Pt received renal transplant in 2013 and is on chronic immunosuppression. Pt did experience a seizure on 12/15 and 12/19 and maintained on Keppra. Social History Home: Single Level Current Living Status: Other Family (brother and sister in law) Steps Into Home: 3 ADL-Prior Level of Function SCALE: Activities may be completed with or without assistive devices. 8-Tqznhqdbym-gqlljsc completes the activity by him/herself with no assistance from a helper. 5-Set-up or Clean-up Assistance-helper sets up or cleans up; patient completes activity. [place] assists only prior to or following the activity. 4-Supervision or Touching Assistance-helper provides verbal cues and/or touching/steadying and/or contact guard assistance as patient completes activity. Assistance may be provided throughout the activity or intermittently. 3-Partial/Moderate Assistance-helper does LESS THAN HALF the effort. [place] lifts, holds or supports trunk or limbs, but provides less than half the effort. 2-Substantial/Maximal Assistance-helper does MORE THAN HALF the effort. [place] lifts or holds trunk or limbs and provides more than half the effort. 3-Agxbfmkws-jawrqg does ALL the effort. Patient does none of the effort to complete the activity. Or, the assistance of 2 or more helpers is required for the patient to complete the activity. If activity was not attempted, code reason: 7-Patient Refused. 9-Not Applicable-not attempted and the patient did not perform the activity before the current illness, exacerbation or injury. 10-Not Attempted due to Environmental Limitations-(lack of equipment, weather restraints, etc.). 88-Not Attempted due to Medical Conditions or Safety Concerns. ADL PLOF Comments Pt indicates independent with ADLs at prior level of function, including eating, bathing, dressing and toileting. Pt indicates his brother and sister in law complete the cooking. IND with functional mobility, no AD. Self Care: Needed Some Help Functional Cognition: Needed Some Help DME/Equipment: Shower OT Current Status Subjective Pt agreeable to OT Evaluation and tx. Mental Status/Objective Patient Orientation: Person, Place, MR, Time, Situation Current Glasses/Contacts: Yes Hearing Aids: No Dentures/Partials: No Hand Dominance: Left Upper Extremity ROM WFL, BUE shoulder flexion to approx 140 degrees Upper Extremity Coordination WFL, some shakiness with tasks, pt indicates this has been going on for a while. Upper Extremity Sensation WFL, pt denies tingling/numbness Upper Extremity Strength grossly 4/5 BUEs ADL-Treatment Eating (QC): 6 (Pt independent with lunch, able to open containers and cut food.) Oral Hygiene (QC): 4 (SBA standing at sink.) Shower/Bathe Self (QC): 7 (Pt declined showering) Upper Body Dressing (QC): 7 (Pt declines, as he has already gotten dressed) Lower Body Dressing (QC): 7 (Pt declines, as he has already gotten dressed) On/Off Footwear (QC): 7 (Pt declines, as he has already gotten dressed) Toileting Hygiene (QC): 3 (Pt stood at toilet to urinate, required min A with managing tab style brief. Per nurse report, pt required assistance with hygiene post BM) Other Treatments OT evaluation complete. Pt declined ADLs as he has already gotten dressed. Agreeable to brushing his teeth at the sink. Pt used FWW to ambulate into bathroom, CGA, stood at sink to complete oral care with SBA. Pt required assistance squeezing toothpaste onto toothbrush, he was then able to brush his teeth. Pt used FWW to ambulate to therapy gym, CGA. In order to increase fine motor strength/coordination, and increase BUE strength, pt completed peg board task with 2lb wrist cuffs on BUEs. Pt able to place x100 pegs into foam pegboard, with rest breaks as needed. He then completed fine motor task with moderate resistance theraputty, removing beads as instructed. Pt required min verbal cues to locate all beads. Pt completed graded clothespin task (1-5 lbs), placing/removing all clothespins first with L hand and then with R. Pt returned to his room, CGA with FWW. He attempted to use electric razor at sink, but razor wasn't charged, he stood at toilet to urinate, then returned to recliner. Pt's lunch arrived and he began to eat. Post tx, pt seated in recliner, call light in reach and all needs met. Education OT Patient Education: Correct positioning, Energy conservation, Exercise program, Modified ADL techniques, Progress toward Goal/Update tx plan, Purpose of tx/functional activities, Rehab process Teaching Recipient: Patient Teaching Methods: Discussion Response to Teaching: Verbalize Understanding OT Short Term Goals Short Term Goals Time Frame: Jan 07, 2021 Oral hygiene: 5 Toileting hygiene: 5 Shower/bathe self: 5 Upper body dressin Lower body dressin OT Heater Operator Goals Heater Operator Goals Time Frame: Jan 16, 2021 Eating (QC): 6 Oral Hygiene (QC): 6 Toileting Hygiene (QC): 6 Shower/Bathe Self (QC): 6 Upper Body Dressing (QC): 6 Lower Body Dressing (QC): 6 On/Off Footwear (QC): 6 Additional Goals: 1-Demonstrate ADL Tasks, 2-Verbalize Understanding, 3- ImproveStrength/Berta 1=Demonstrate adherence to instructed precautions during ADL tasks. 2=Patient will verbalize/demonstrate understanding of assistive d evices/modifications for ADL. 3=Patient will improve strength/tolerance for activity to enable patient to perform ADL's. OT Education/Plan Problem List/Assessment Assessment: Decreased Activ Tolerance, Decreased UE Strength, Impaired Funct Balance, Impaired I ADL's, Impaired Self-Care Skills Discharge Recommendations Plan/Recommendations: Continue POC Therapy Discharge Recommendati: Home & Family Equpiment Recommendations-D/C: Bath Chair Treatment Plan/Plan of Care Patient would benefit from OT for education, treatment and training to promote independence in ADL's, mobility, safety and/or upper extremity function for ADL's. Plan of Care: ADL Retraining, Functional Mobility, Group Exercise/Act as Ind, UE Funct Exercise/Act Treatment Duration: Jan 16, 2021 Frequency: At least 5 of 7 days/Wk (IRF) Estimated Hrs Per Day: 1.5 hours per day Agreement: Yes Rehab Potential: Good Time/GCodes Start Time: 10:45 Stop Time: 12:00 Total Time Billed (hr/min): 75 Billed Treatment Time 1, EVM (10'), ADL (15'), FA 3 (50') DAVID GONSALES OT Dec 29, 2020 13:56
[2020-12-29 17:43] VITALS: BP 110/73
[2020-12-29] MEDS: MELATONIN 3 MG TABLET PO PRN (21:25)
[2020-12-30 06:00] VITALS: BP 117/82
[2020-12-30] MEDS: MULTIVIT W/MINERALS TAB (THERAGRAN M) PO SCH (06:29)
--- NOTE | 2020-12-30 07:40 | Occupational Ther Daily Note ---
OT Current Status-Daily Note Subjective Pt alert, sitting in recliner. Pt upset due to change in routine. Pt's normal routine is being at work at 7 though unable to state exact time pt gets up. Pt work day is 7-3. Pt c/o pain in neck and buttocks, reported to nrsg. Mental Status/Objective Patient Orientation: Person, Place, MR, Time ADL-Treatment Pt adamantly declines shower today stating that he just wants to get dressed. Pt agrees to completing sponge bath with bath pack. After set up and verbal cues to initiate, pt able to complete upper/lower body bathing. Nrsg had completed buttocks/phuong area when pt went to bathroom prior to OT session. After set up, pt able to complete dressing by self. Pt will ask for help, reminders that he can do it and he does this at home by himself will help for him to continue on task by self. Pt requested to use bathroom to complete toileting. Pt stood at toilet, voided and manipulated clothing independently. Pt stood at sink to complete handwashing, oral care and shaving independently. Pt opened containers, packages and banana by self then uses regular utensils to eat. After session, pt sitting in recliner with call light/phone in reach. Safety measures in place. All needs met in room. Therapy Code Descriptions/Definitions Functional [place] Measure: 0=Not Assessed/NA 4=Minimal Assistance 1=Total Assistance 5=Supervision or Setup 2=Maximal Assistance 6=Modified [place] 3=Moderate Assistance 7=Complete IndependenceSCALE: Activities may be completed with or without assistive devices. 4-Epcodpeold-lclfjgf completes the activity by him/herself with no assistance from a helper. 5-Set-up or Clean-up Assistance-helper sets up or cleans up; patient completes activity. [place] assists only prior to or following the activity. 4-Supervision or Touching Assistance-helper provides verbal cues and/or touching/steadying and/or contact guard assistance as patient completes activity. Assistance may be provided throughout the activity or intermittently. 3-Partial/Moderate Assistance-helper does LESS THAN HALF the effort. [place] lifts, holds or supports trunk or limbs, but provides less than half the effort. 2-Substantial/Maximal Assistance-helper does MORE THAN HALF the effort. [place] lifts or holds trunk or limbs and provides more than half the effort. 7-Pspfqlubm-rikibc does ALL the effort. Patient does none of the effort to complete the activity. Or, the assistance of 2 or more helpers is required for the patient to complete the activity. If activity was not attempted, code reason: 7-Patient Refused. 9-Not Applicable-not attempted and the patient did not perform the activity before the current illness, exacerbation or injury. 10-Not Attempted due to Environmental Limitations-(lack of equipment, weather restraints, etc.). 88-Not Attempted due to Medical Conditions or Safety Concerns. Eating (QC): 6 Oral Hygiene (QC): 6 Bathing Location: L Arm, R Arm, L Upper Leg, R Upper Leg, L Lower Leg (including foot), R Lower Leg (including foot), Chest, Abdomen Shower/Bathe Self (QC): 3 Upper Body Dressing (QC): 5 Lower Body Dressing (QC): 5 On/Off Footwear: 5 Toileting Hygiene (QC): 6 Toilet Transfer (QC): 6 Other Treatment Pt ambulated throughout hallway until breakfast came then back to room to eat. OT Short Term Goals Short Term Goals Time Frame: Jan 07, 2021 Oral hygiene: 5 Toileting hygiene: 5 Shower/bathe self: 5 Upper body dressin Lower body dressin OT Wire Coiler Machine Operator Goals Halfway Goals Time Frame: Jan 16, 2021 Eating (QC): 6 Oral Hygiene (QC): 6 Toileting Hygiene (QC): 6 Shower/Bathe Self (QC): 6 Upper Body Dressing (QC): 6 Lower Body Dressing (QC): 6 On/Off Footwear (QC): 6 Additional Goals: 1-Demonstrate ADL Tasks, 2-Verbalize Understanding, 3- ImproveStrength/Berta 1=Demonstrate adherence to instructed precautions during ADL tasks. 2=Patient will verbalize/demonstrate understanding of assistive devices/modifications for ADL. 3=Patient will improve strength/tolerance for activity to enable patient to perform ADL's. OT Education/Plan Problem List/Assessment Assessment: Decreased Activ Tolerance, Impaired Cognition Discharge Recommendations Plan/Recommendations: Continue POC Treatment Plan/Plan of Care Patient would benefit from OT for education, treatment and training to promote independence in ADL's, mobility, safety and/or upper extremity function for ADL's. Plan of Care: ADL Retraining, Functional Mobility, Group Exercise/Act as Ind, UE Funct Exercise/Act Treatment Duration: Jan 16, 2021 Frequency: At least 5 of 7 days/Wk (IRF) Estimated Hrs Per Day: 1.5 hours per day Agreement: Yes Rehab Potential: Good Time/GCodes Start Time: 07:00 Stop Time: 08:15 Total Time Billed (hr/min): 75 Billed Treatment Time 1 visit-ADL 5 (75 min) DEJON PALM Dec 30, 2020 07:40
[2020-12-30] MEDS: ACETAMINOPHEN 325 MG TABLET PO PRN ×2 (07:41→14:52)
[2020-12-30] MEDS: LIPASE/AMYLASE/PROTEASE (PANCRELIPASE) 5,000 UNITS CAP PO SCH ×3 (07:42→17:05)
[2020-12-30] MEDS: CALCIUM CITRATE 950 MG PO SCH ×3 (07:43→17:04)
[2020-12-30] MEDS: DOCUSATE SODIUM 100 MG (COLACE) CAP PO SCH ×2 (07:43→19:20)
[2020-12-30] MEDS: polyethylene glycoL POWDER 17 GM (MIRALAX) PACK PO SCH ×2 (07:43→19:20)
[2020-12-30] MEDS: SENNA W/DOCUSATE (SENOKOT S) TABLET PO SCH ×2 (07:43→19:20)
[2020-12-30] MEDS: CALCITRIOL 0.25 MCG (ROCALTROL) CAPSULE PO SCH ×3 (07:43→20:32)
[2020-12-30] MEDS: ALLOPURINOL 100 MG (ZYLOPRIM) TAB PO SCH (08:23)
[2020-12-30] MEDS: PANTOPRAZOLE 40 MG (PROTONIX) TAB PO SCH ×2 (08:24→20:32)
[2020-12-30] MEDS: VITAMIN D3 25 MCG (1,000 UNITS) TABLET PO SCH (08:24)
[2020-12-30] MEDS: predniSONE 5 MG TAB PO SCH (08:25)
[2020-12-30] MEDS: SODIUM BICARBONATE 650 MG TABLET (NON-FORMULARY) PO SCH ×3 (08:26→20:32)
[2020-12-30] MEDS: TACROLIMUS 1 MG (PROGRAF) CAP NON-FORMULARY PO SCH ×2 (08:27→20:33)
[2020-12-30] MEDS: TERIPARATIDE 600 MCG/2.4 ML (FORTEO) SYR SQ SCH (08:28)
--- NOTE | 2020-12-30 09:10 | PM&R Progress Note ---
Subjective HPI/CC On Admission Date Seen by Provider: Dec 30, 2020 Time Seen by Provider: 09:15 Subjective/Events-last exam 12/30/20: Pt doing very well Having loose bowels Working with PT Overall doing very well 12/29/20: Pt doing pretty well Spilled his urinal and got upset with himself WBC 2.5, Hgb 8.2 Checking iron level Creatinine 1.73 Albumin 2.5 and potassium 5.3 Goes by jeronimo Adames Review of Systems General: Fatigue, Malaise Neurological: Weakness Objective Exam Vital Signs Vital Signs Date Time Temp Pulse Resp B/P (MAP) Pulse Ox O2 Delivery O2 Flow Rate FiO2 12/30/20 20:35 Room Air 12/30/20 17:15 37.4 100 18 124/89 (101) 100 Capillary Refill : General Appearance: No Apparent Distress, WD/WN, Anxious, Chronically ill, Thin, Other (pale, fatigued) HEENT: PERRL/EOMI, Normal ENT Inspection, Pharynx Normal Neck: Full Range of Motion, Normal Inspection, Non Tender, Supple, Carotid Bruit Respiratory: Chest Non Tender, Lungs Clear, Normal Breath Sounds, No Accessory Muscle Use, No Respiratory Distress Cardiovascular: Regular Rate, Rhythm, No Gallop, No JVD, No Murmur, Normal Peripheral Pulses Gastrointestinal: Normal Bowel Sounds, No Organomegaly, No Pulsatile Mass, Non Tender, Soft Back: Normal Inspection, No CVA Tenderness, No Vertebral Tenderness Extremity: Normal Capillary Refill, Normal Inspection, Normal Range of Motion, Non Tender, No Calf Tenderness, Pedal Edema Neurologic/Psychiatric: Alert, Oriented x3, Normal Mood/Affect, photoengraving machine operator/tender II-XII Norm as Tested, Abnormal Gait, Disoriented, Motor Weakness (decreased extremities 4/5) Skin: Normal Color, Warm/Dry Lymphatic: No Adenopathy Results/Procedures Lab Patient resulted labs reviewed. FIM Transfers Therapy Code Descriptions/Definitions Functional [place] Measure: 0=Not Assessed/NA 4=Minimal Assistance 1=Total Assistance 5=Supervision or Setup 2=Maximal Assistance 6=Modified [place] 3=Moderate Assistance 7=Complete IndependenceSCALE: Activities may be completed with or without assistive devices. 5-Odsnveaumh-fljomap completes the activity by him/herself with no assistance from a helper. 5-Set-up or Clean-up Assistance-helper sets up or cleans up; patient completes activity. [place] assists only prior to or following the activity. 4-Supervision or Touching Assistance-helper provides verbal cues and/or touching/steadying and/or contact guard assistance as patient completes activity. Assistance may be provided throughout the activity or intermittently. 3-Partial/Moderate Assistance-helper does LESS THAN HALF the effort. [place] lifts, holds or supports trunk or limbs, but provides less than half the effort. 2-Substantial/Maximal Assistance-helper does MORE THAN HALF the effort. [place] lifts or holds trunk or limbs and provides more than half the effort. 0-Listbyeoj-wcfyzv does ALL the effort. Patient does none of the effort to complete the activity. Or, the assistance of 2 or more helpers is required for the patient to complete the activity. If activity was not attempted, code reason: 7-Patient Refused. 9-Not Applicable-not attempted and the patient did not perform the activity before the current illness, exacerbation or injury. 10-Not Attempted due to Environmental Limitations-(lack of equipment, weather restraints, etc.). 88-Not Attempted due to Medical Conditions or Safety Concerns. Roll Left to Right (QC): 4 Sit to Lying (QC): 4 Sit to Stand (QC): 3 (occas min assist to come to a full stand; heavy use of arms to push up) Chair/Mpo-ed-Sqtpy Xfer(QC): 3 (min assist to steady him) Car Transfer (QC): 3 (light assist with legs to get into car) Gait Training Does the Patient Walk?: Yes Walk 10 feet (QC): 3 (CGA) Walk 50 ft with 2 Turns(QC): 3 (CGA) Walk 150 ft (QC): 3 (CGA) Walking 10ft/uneven surface-QC: 3 (CGA) Gait Assistive Device: FWW Wheelchair Training Does the Pt Use a Wheelchair?: No Wheel 50 ft with 2 turns (QC): 9 Wheel 150 ft (QC): 9 Stair Training 1 Step (curb) (QC): 3 (min assist as he steps up) 4 Steps (QC): 3 (min assist for balance and safety; used B handrails) 12 Steps (QC): 88 Balance Picking up an Object (QC): 88 ADL-Treatment Eating (QC): 6 Oral Hygiene (QC): 6 Bathing Location: L Arm, R Arm, L Upper Leg, R Upper Leg, L Lower Leg (including foot), R Lower Leg (including foot), Chest, Abdomen Shower/Bathe Self (QC): 3 Upper Body Dressing (QC): 5 Lower Body Dressing (QC): 5 On/Off Footwear (QC): 5 Toileting Hygiene (QC): 6 Toilet Transfer (QC): 6 Assessment/Plan Assessment and Plan Assess & Plan/Chief Complaint Assessment: Myopathy Intellectual disability Cachexia Seizure d/o 12/15/20 new onset Chronic diarrhea Anemia Hypocalcemia Metabolic acidosis Prednisone dependence Plan: IRF protocol Check labs Monitor pain Seizure precautions 12/29/20: Monitor closely Increase diet Monitor creat and hgb 12/30/20: Monitor hgb Fall risk (1) Myopathy (2) Seizure (3) Chronic diarrhea (4) Hypocalcemia (5) Renal transplant recipient (6) PKD (polycystic kidney disease) (7) Intellectual disability (8) Hypomagnesemia (9) Anemia (10) Buttock wound (11) Port-A-Cath in place (12) Cachexia (13) Vitamin D deficiency (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
--- NOTE | 2020-12-30 09:11 | Individualized Plan of Care ---
Individualized Plan of Care Rehab Nursing IPOC Order Admission Date Dec 28, 2020 at 12:48 Current Orders Orders Admission Arrival Bed Request (12/28/20 12:30) General/Regular (12/28/20 Lunch) Admission Order(Inpt,Obs,Sdc) (12/28/20 14:00) Vital Signs: Per Unit Policy ( 08,16,00 (12/28/20 14:00) Braulio Hose (12/28/20 14:00) Sequential Compression Device .admit (12/28/20 14:00) Cooling Machine Operator-Inpt Rehab Con (12/28/20 14:00) Rehab Nursing Orders-Ipoc (12/28/20 14:00) Physical Therapy Rehab Orders (12/28/20 14:00) Occupational Therapy Rehab Ord (12/28/20 14:00) Speech Therapy Rehab Orders (12/28/20 14:00) Cbc With Automated Diff (12/29/20 06:00) Comprehensive Metabolic Panel (12/29/20 06:00) Intake & Output 06,14, (12/28/20 14:00) Precautions (Aru) (12/28/20 14:00) Weekly Weight WEEK (12/28/20 14:00) Rehab-Intensity Of Therapy (12/28/20 14:00) Initiate Admission Nursing Pro .admission (12/28/20 14:00) Alprazolam Tablet (Xanax Tablet) (12/28/20 14:00) Calcium Carbonate Chew Tablet (Antacid C (12/28/20 14:00) Diphenhydramine Tablet (Benadryl Tablet) (12/28/20 14:00) Docusate Sodium Capsule (Colace Capsule) (12/28/20 21:00) Docusate Sodium Capsule (Colace Capsule) (12/28/20 14:00) Bisacodyl Suppository (Dulcolax Supposit (12/28/20 14:00) Lactulose Oral Solution (Enulose Oral So (12/28/20 14:00) Na Phos/Na Biphos Enema (Fleet Enema Boy (12/28/20 14:00) Guaifenesin/Codeine Syrup (Robitussin Ac (12/28/20 14:00) Loperamide Tablet (Imodium Tablet) (12/28/20 14:00) Melatonin Tablet (Melatonin Tablet) (12/28/20 14:00) Polyethylene Glycol Powder Pkt (Miralax (12/28/20 21:00) Ondansetron Oral Dissolve Tab (Zofran (12/28/20 14:00) Senna S Tablet (Senokot S Tablet) (12/28/20 21:00) Acetaminophen Tablet/Caplet (Tylenol T (12/28/20 14:15) Allopurinol Tablet (Zyloprim Tablet) (12/29/20 09:00) Ketoconazole Cream (Nizoral 2% Cream) (12/28/20 21:00) Levetiracetam Tablet (Keppra Tablet) (12/28/20 21:00) Prednisone Tablet (Deltasone Tablet) (12/29/20 09:00) Sodium Bicarbonate Tablet (Nf) (Sodium B (12/28/20 21:00) Tacrolimus (Non-Formulary) (Prograf (Non (12/28/20 21:00) Teriparatide (Non-Formulary) (Forteo (No (12/29/20 09:00) Calcitriol Capsule (Rocaltrol Capsule) (12/28/20 21:00) Calcium Citrate Tab (Nonform) (Calcitrat (12/28/20 18:00) Cholecalciferol Capsule/Tablet (Vitamin (12/29/20 09:00) (Nf) Epoetin Tiago-Epbx (Retacrit) (12/28/20 15:15) (Nf) Ketoconazole (12/28/20 21:00) Lipase/Amylase/Protease Caps (Pancrelipa (12/28/20 18:00) Vitamin A & D Ointment (A & D Ointment) (12/28/20 15:30) Pantoprazole Tablet (Protonix Tablet) (12/28/20 21:00) Therapeutic Multivitamin Tab (Vitamins, (12/29/20 07:00) Patient May Use Own Meds, All (Patient M (12/28/20 15:30) Iron Test (Fe) (12/29/20 07:08) Patient Visit (12/29/20 ) Pt Eval Moderate Complexity (12/29/20 ) Functional Activities, Ea 15 (12/29/20 ) Gait Training, Ea 15 Min (12/29/20 ) Exercise Therap, Ea 15 Min (12/29/20 ) Patient Visit (12/29/20 ) Treat. Speech/Lang/Voice (12/29/20 ) Speech Sound Lang Comp (12/29/20 ) Patient Visit (12/29/20 ) Gait Training, Ea 15 Min (12/29/20 ) Epoetin Tiago Non Chemo Or Rad (Procrit N (12/31/20 09:00) Patient Visit (12/30/20 ) Treat. Speech/Lang/Voice (12/30/20 ) Darbepoetin [facility] (Aranesp Non C (12/31/20 09:00) Ketoconazole Cream (Nizoral 2% Cream) (12/30/20 21:00) Patient Visit (12/30/20 ) Gait Training, Ea 15 Min (12/30/20 ) Functional Activities, Ea 15 (12/30/20 ) Exercise Therap, Ea 15 Min (12/30/20 ) Rehab Nursing Orders: Ongoing Assess. of Cognitive Status, Ongoing Assess. of Function Status, Bladder Management, Bladder Scan, Bladder Training, Bowel Management, Bowel Training, Disease Management & Educaiton, DVT Prophylaxis, Fall Prevention, Fluid/Electrolyte/Nutrition Mgmt, Infection Prevention, Medication Management & Education, Management of Risks & Complications, Ma nagement of Skin Intergrity, Nutrition Management, Pain Management, Patient/Family Support, Safety Management, Swallow Precautions Intensity of Therapy to be met Patient to be seen: Min.3h per day/5 of 7d PT IPOC Problem List: Activity Tolerance, Functional Strength, Safety, Balance, Gait, Transfer Treatment Plan: Continue Plan of Care Bed Mobility, Education, Functional Activity Berta, Functional Strength, Group Therapy, Gait, Safety, Therapeutic Exercise, Transfers Treatment Duration: Jan 19, 2021 Frequency: At least 5 of 7 days/Wk (IRF) Estimated Hrs Per Day: 1.5 hours per day (1 to 1. 5) OT IPOC Problems: Decreased Activ Tolerance, Impaired Cognition OT Treatment, Training and Edu: Yes Plan of Care: ADL Retraining, Functional Mobility, Group Exercise/Act as Ind, UE Funct Exercise/Act Treatment Duration: Jan 16, 2021 Frequency: At least 5 of 7 days/Wk (IRF) Estimated Hrs Per Day: 1.[address] IPOC Speech Therapy Treatment Plan: Concurrent Therapy Treatment Duration: Jan 09, 2021 Frequency: 4 times per week (Patient will receive skilled ST 4-5x per week) Estimated Hrs Per Day: .5 hour per day Cooling Machine Operator/Case Mgmt Cooling Machine Operator/Case Managemen: Discharge Planning Dietitian/Post Hole Digger Dietitian/Post Hole Digger to monitor nutritional status and make changes and/or recommendations as needed and work with speech pathology on dietary upgrades as the occur. Physician IPOC Medical Issues being managed closely and that require the 24 hour availability of a physician: Recent critical illness will require close observation considering kidney transplant status and high risk for falls and decompensation Medical Issues: Bowel/Bladder Function, DVT Prophylaxis, Falls Precautions, Fluid/Electrolyte/Nutrition Balance, Infection Protection, Pain Management, Swallowing Precautions Brief Synthesis of Preadmission Screen, Post-Admission Evaluation, and Therapy Evaluations: PT OT will focus on regaining function and strength and increase independence in ADL's in order to return to live independently Medical Prognosis: Good Anticipated Length of Stay: 10 days ORAL RIVERA DO Dec 30, 2020 09:10
--- NOTE | 2020-12-30 09:17 | Speech Therapy Daily Note ---
Speech Daily Progress Note Subjective Date Seen by Provider: Dec 30, 2020 Time Seen by Provider: 00:30 Patient was alert and participated well with ST today. Objective Patient followed directions for completing 100 piece puzzle with minimal cuing. Assessment Assessment Current Status: Good Progress Treatment Plan Continue Plan of Care Speech Short Term Goals Short Term Goals Short Term Goals 1) Patient will complete safety awareness tasks related to his daily needs with 80% or greater with minimal cuing. 2) Patient will complete cognitive tasks at his intellectual level with 80% or greater with minimal cuing. Speech Senior Living Goals Manager Cosmetic Goals Patient will improve his cognitive-communication skills in order to return to his prior level of function. Speech-Plan Patient/Family Goals Patient/Family Goals: Patient will return to his home where he lives with his brother and family. Treatment Plan Speech Therapy Treatment Plan: Continue Plan of Care Treatment Duration: Jan 09, 2021 Frequency: 4 times per week (Patient will receive skilled ST 4-5x per week) Estimated Hrs Per Day: .5 hour per day Rehab Potential: Good Barriers to Learning: Patient has mild intellectual challenges Pt/Family Agrees to Plan: Yes Safety Risks/Education Teaching Recipient: Patient Teaching Methods: Demonstration, Discussion Response to Teaching: Verbalize Understanding, Return Demonstration Education Topics Provided: Continued safety within his room and communication of wants needs Time Speech Therapy Time In: 08:30 Speech Therapy Time Out: 09:00 Total Billed Time: 30 Billed Treatment Time 1TOM BETHANIA ST Dec 30, 2020 09:17
--- NOTE | 2020-12-30 09:39 | Physical Therapy Daily Note ---
PT Daily Note-Current Subjective Pt. is seated in the lobby area completing a puzzle, agrees to PT and has no complaints. Mental Status Patient Orientation: Person Transfers SCALE: Activities may be completed with or without assistive devices. 0-Kamqksjygl-khtreld completes the activity by him/herself with no assistance from a helper. 5-Set-up or Clean-up Assistance-helper sets up or cleans up; patient completes activity. [place] assists only prior to or following the activity. 4-Supervision or Touching Assistance-helper provides verbal cues and/or touching/steadying and/or contact guard assistance as patient completes activity. Assistance may be provided throughout the activity or intermittently. 3-Partial/Moderate Assistance-helper does LESS THAN HALF the effort. [place] lifts, holds or supports trunk or limbs, but provides less than half the effort. 2-Substantial/Maximal Assistance-helper does MORE THAN HALF the effort. [place] lifts or holds trunk or limbs and provides more than half the effort. 2-Lyzhwyuta-rjvowm does ALL the effort. Patient does none of the effort to complete the activity. Or, the assistance of 2 or more helpers is required for the patient to complete the activity. If activity was not attempted, code reason: 7-Patient Refused. 9-Not Applicable-not attempted and the patient did not perform the activity before the current illness, exacerbation or injury. 10-Not Attempted due to Environmental Limitations-(lack of equipment, weather restraints, etc.). 88-Not Attempted due to Medical Conditions or Safety Concerns. Sit to Stand (QC): 4 needs min A from low seat surface, otherwise CGA from mat surface Weight Bearing Right Lower Extremity: Right Full Weight Bearing Left Lower Extremity: Left Full Weight Bearing Gait Training Does the Patient Walk?: Yes Distance: 150 ft, 80 ft Walk 150 ft (QC): 4 Gait Persons Needed: 1 Gait Assistive Device: FWW slow but steady ambulation with FWW, narrow JAGDEEP Wheelchair Training Does the Pt Use a Wheelchair?: No Exercises Seated Therapy Exercises: Sit to stand, Long arc quads Seated Reps: 10 NuStep Minutes: 10 NuStep Workload: 3 Treatments gait, nustep, LE exercises Assessment Current Status: Good Progress Pt. does well with ambulation but continues to need occasional min A with sit to stand. Pt. returned to room post session, up in lift chair with call light, alarm set and all needs met. PT Short Term Goals Short Term Goals Time Frame: Jan 05, 2021 Sit to lyin Lying to sitting on side of be: 5 Sit to stand: 4 Chair/dpm-au-nlvnu transfer: 4 Walk 150 feet: 4 4 steps: 4 PT Fpc Goals Fpc Goals PT Sound Printer Goals Time Frame: Jan 19, 2021 Roll Left & Right (QC): 6 Sit to Lying (QC): 6 Lying-Sitting on Side/Bed(QC): 6 Sit to Stand (QC): 6 Chair/Gdj-lh-Izmil Xfer(QC): 6 Toilet Transfer (QC): 6 Car Transfer (QC): 6 Does the Patient Walk: Yes Walk 10 feet (QC): 6 Walk 50ft with 2 Turns (QC): 6 Walk 150 ft (QC): 6 Walking 10ft on Uneven Surface: 6 1 Step (curb) (QC): 6 4 Steps (QC): 6 12 Steps (QC): 4 Picking up an Object (QC): 4 Does the Pt use WC or Scooter?: No Wheel 50 feet with 2 turns (QC: 9 Wheel 150 feet: 9 PT Plan Treatment/Plan Treatment Plan: Continue Plan of Care Treatment Plan: Bed Mobility, Education, Functional Activity Berta, Functional Strength, Group Therapy, Gait, Safety, Therapeutic Exercise, Transfers Treatment Duration: Jan 19, 2021 Frequency: At least 5 of 7 days/Wk (IRF) Estimated Hrs Per Day: 1.5 hours per day (1 to 1. 5) Patient and/or Family Agrees t: Yes Time/GCodes Time In: 0900 Time Out: 1000 Total Billed Treatment Time: 60 Total Billed Treatment 1, GT 15', FA 15', Ex 30' ISA CLAYTON PT Dec 30, 2020 09:39
--- NOTE | 2020-12-30 11:53 | Physical Therapy Daily Note ---
PT Daily Note-Current Subjective Pt. up in chair, states he would like to walk. Mental Status Patient Orientation: Person Transfers SCALE: Activities may be completed with or without assistive devices. 7-Ozmbpzutln-dclteli completes the activity by him/herself with no assistance from a helper. 5-Set-up or Clean-up Assistance-helper sets up or cleans up; patient completes activity. [place] assists only prior to or following the activity. 4-Supervision or Touching Assistance-helper provides verbal cues and/or touching/steadying and/or contact guard assistance as patient completes activity. Assistance may be provided throughout the activity or intermittently. 3-Partial/Moderate Assistance-helper does LESS THAN HALF the effort. [place] lifts, holds or supports trunk or limbs, but provides less than half the effort. 2-Substantial/Maximal Assistance-helper does MORE THAN HALF the effort. [place] lifts or holds trunk or limbs and provides more than half the effort. 3-Mzpugygrg-btvdin does ALL the effort. Patient does none of the effort to complete the activity. Or, the assistance of 2 or more helpers is required for the patient to complete the activity. If activity was not attempted, code reason: 7-Patient Refused. 9-Not Applicable-not attempted and the patient did not perform the activity before the current illness, exacerbation or injury. 10-Not Attempted due to Environmental Limitations-(lack of equipment, weather restraints, etc.). 88-Not Attempted due to Medical Conditions or Safety Concerns. Sit to Stand (QC): 4 (uses lift chair in room) Weight Bearing Right Lower Extremity: Right Full Weight Bearing Left Lower Extremity: Left Full Weight Bearing Gait Training Does the Patient Walk?: Yes Distance: 200 ft Walk 150 ft (QC): 4 Gait Persons Needed: 1 Gait Assistive Device: FWW slow but steady gait using FWW Treatments gait Assessment Current Status: Good Progress Pt. does well with ambulation and says during session "I needed this for my legs to get stronger." Post session patient up in lift chair with heating pad across his upper back per request, alarm set, call light in hand and all needs met. PT Short Term Goals Short Term Goals Time Frame: Jan 05, 2021 Sit to lyin Lying to sitting on side of be: 5 Sit to stand: 4 Chair/oma-so-ntmoj transfer: 4 Walk 150 feet: 4 4 steps: 4 PT Alf Goals Alf Goals PT Alf Goals Time Frame: Jan 19, 2021 Roll Left & Right (QC): 6 Sit to Lying (QC): 6 Lying-Sitting on Side/Bed(QC): 6 Sit to Stand (QC): 6 Chair/Khk-bs-Mpaiw Xfer(QC): 6 Toilet Transfer (QC): 6 Car Transfer (QC): 6 Does the Patient Walk: Yes Walk 10 feet (QC): 6 Walk 50ft with 2 Turns (QC): 6 Walk 150 ft (QC): 6 Walking 10ft on Uneven Surface: 6 1 Step (curb) (QC): 6 4 Steps (QC): 6 12 Steps (QC): 4 Picking up an Object (QC): 4 Does the Pt use WC or Scooter?: No Wheel 50 feet with 2 turns (QC: 9 Wheel 150 feet: 9 PT Plan Treatment/Plan Treatment Plan: Continue Plan of Care Treatment Plan: Bed Mobility, Education, Functional Activity Berta, Functional Strength, Group Therapy, Gait, Safety, Therapeutic Exercise, Transfers Treatment Duration: Jan 19, 2021 Frequency: At least 5 of 7 days/Wk (IRF) Estimated Hrs Per Day: 1.5 hours per day (1 to 1. 5) Patient and/or Family Agrees t: Yes Time/GCodes Time In: 1135 Time Out: 1150 Total Billed Treatment Time: 15 Total Billed Treatment 1, GT 15' ISA CLAYTON PT Dec 30, 2020 11:53
[2020-12-30 17:15] VITALS: BP 124/89
[2020-12-30] MEDS: MELATONIN 3 MG TABLET PO PRN (20:32)
[2020-12-30] MEDS: KETOCONAZOLE 2% TP SCH (20:33)
[2020-12-31 05:46] VITALS: BP 119/79
[2020-12-31] MEDS: MULTIVIT W/MINERALS TAB (THERAGRAN M) PO SCH (06:10)
[2020-12-31] MEDS: VITAMIN D3 25 MCG (1,000 UNITS) TABLET PO SCH (08:43)
[2020-12-31] MEDS: CALCITRIOL 0.25 MCG (ROCALTROL) CAPSULE PO SCH ×2 (08:43→19:46)
[2020-12-31] MEDS: SODIUM BICARBONATE 650 MG TABLET (NON-FORMULARY) PO SCH ×3 (08:43→19:46)
[2020-12-31] MEDS: PANTOPRAZOLE 40 MG (PROTONIX) TAB PO SCH ×2 (08:43→19:46)
[2020-12-31] MEDS: ALLOPURINOL 100 MG (ZYLOPRIM) TAB PO SCH (08:43)
[2020-12-31] MEDS: LIPASE/AMYLASE/PROTEASE (PANCRELIPASE) 5,000 UNITS CAP PO SCH ×3 (08:43→18:20)
[2020-12-31] MEDS: polyethylene glycoL POWDER 17 GM (MIRALAX) PACK PO SCH ×2 (08:44→16:10)
[2020-12-31] MEDS: predniSONE 5 MG TAB PO SCH (08:45)
[2020-12-31] MEDS: DOCUSATE SODIUM 100 MG (COLACE) CAP PO SCH ×2 (08:45→16:11)
[2020-12-31] MEDS: TACROLIMUS 1 MG (PROGRAF) CAP NON-FORMULARY PO SCH ×2 (08:46→19:45)
[2020-12-31] MEDS: SENNA W/DOCUSATE (SENOKOT S) TABLET PO SCH ×2 (08:46→16:11)
[2020-12-31] MEDS: CALCIUM CITRATE 950 MG PO SCH ×3 (08:48→18:21)
[2020-12-31] MEDS: TERIPARATIDE 600 MCG/2.4 ML (FORTEO) SYR SQ SCH (08:57)
[2020-12-31] MEDS: KETOCONAZOLE 2% TP SCH ×2 (08:58→19:46)
[2020-12-31] MEDS ORDERED: [UNRECOGNIZED DRUG - REMARK] SC SCH (09:00)
[2020-12-31] MEDS ORDERED: DARBEPOETIN 60 MCG/ML (ARANESP) HOSPITAL SQ SCH (09:00)
--- NOTE | 2020-12-31 09:26 | PM&R Progress Note ---
Subjective HPI/CC On Admission Date Seen by Provider: Dec 31, 2020 Time Seen by Provider: 11:30 Subjective/Events-last exam 12/31/20: Pt doing really well Has a stage II decubitus ulcer on his coccyx Eats really well Denies any other significant pain Checked meds and labs 12/30/20: Pt doing very well Having loose bowels Working with PT Overall doing very well 12/29/20: Pt doing pretty well Spilled his urinal and got upset with himself WBC 2.5, Hgb 8.2 Checking iron level Creatinine 1.73 Albumin 2.5 and potassium 5.3 Goes by jeronimo Adames Review of Systems General: Fatigue, Malaise Neurological: Weakness Objective Exam Vital Signs Vital Signs Date Time Temp Pulse Resp B/P (MAP) Pulse Ox O2 Delivery O2 Flow Rate FiO2 12/31/20 21:05 Room Air 12/31/20 18:05 37.2 99 16 119/65 (83) 96 Capillary Refill : General Appearance: No Apparent Distress, WD/WN, Anxious, Chronically ill, Thin, Other (pale, fatigued) HEENT: PERRL/EOMI, Normal ENT Inspection, Pharynx Normal Neck: Full Range of Motion, Normal Inspection, Non Tender, Supple, Carotid Bruit Respiratory: Chest Non Tender, Lungs Clear, Normal Breath Sounds, No Accessory Muscle Use, No Respiratory Distress Cardiovascular: Regular Rate, Rhythm, No Gallop, No JVD, No Murmur, Normal Peripheral Pulses Gastrointestinal: Normal Bowel Sounds, No Organomegaly, No Pulsatile Mass, Non Tender, Soft Back: Normal Inspection, No CVA Tenderness, No Vertebral Tenderness Extremity: Normal Capillary Refill, Normal Inspection, Normal Range of Motion, Non Tender, No Calf Tenderness, Pedal Edema Neurologic/Psychiatric: Alert, Oriented x3, Normal Mood/Affect, utility hand II-XII Norm as Tested, Abnormal Gait, Disoriented, Motor Weakness (decreased extremities 4/5) Skin: Normal Color, Warm/Dry Lymphatic: No Adenopathy Results/Procedures Lab Patient resulted labs reviewed. FIM Transfers Therapy Code Descriptions/Definitions Functional [place] Measure: 0=Not Assessed/NA 4=Minimal Assistance 1=Total Assistance 5=Supervision or Setup 2=Maximal Assistance 6=Modified [place] 3=Moderate Assistance 7=Complete IndependenceSCALE: Activities may be completed with or without assistive devices. 7-Phsamvjmnm-cupwvrt completes the activity by him/herself with no assistance from a helper. 5-Set-up or Clean-up Assistance-helper sets up or cleans up; patient completes activity. [place] assists only prior to or following the activity. 4-Supervision or Touching Assistance-helper provides verbal cues and/or touching/steadying and/or contact guard assistance as patient completes activity. Assistance may be provided throughout the activity or intermittently. 3-Partial/Moderate Assistance-helper does LESS THAN HALF the effort. [place] lifts, holds or supports trunk or limbs, but provides less than half the effort. 2-Substantial/Maximal Assistance-helper does MORE THAN HALF the effort. [place] lifts or holds trunk or limbs and provides more than half the effort. 7-Cipyvpfaj-cptkfe does ALL the effort. Patient does none of the effort to complete the activity. Or, the assistance of 2 or more helpers is required for the patient to complete the activity. If activity was not attempted, code reason: 7-Patient Refused. 9-Not Applicable-not attempted and the patient did not perform the activity before the current illness, exacerbation or injury. 10-Not Attempted due to Environmental Limitations-(lack of equipment, weather restraints, etc.). 88-Not Attempted due to Medical Conditions or Safety Concerns. Roll Left to Right (QC): 4 Sit to Lying (QC): 4 Sit to Stand (QC): 4 (uses lift chair in room) Chair/Kki-il-Bxzml Xfer(QC): 3 (min assist to steady him) Car Transfer (QC): 3 (light assist with legs to get into car) Gait Training Does the Patient Walk?: Yes Distance: 200 ft Walk 10 feet (QC): 3 (CGA) Walk 50 ft with 2 Turns(QC): 3 (CGA) Walk 150 ft (QC): 4 Walking 10ft/uneven surface-QC: 3 (CGA) Gait Persons Needed: 1 Gait Assistive Device: FWW Wheelchair Training Does the Pt Use a Wheelchair?: No Wheel 50 ft with 2 turns (QC): 9 Wheel 150 ft (QC): 9 Stair Training 1 Step (curb) (QC): 3 (min assist as he steps up) 4 Steps (QC): 3 (min assist for balance and safety; used B handrails) 12 Steps (QC): 88 Balance Picking up an Object (QC): 88 ADL-Treatment Eating (QC): 6 Oral Hygiene (QC): 6 Bathing Location: L Arm, R Arm, L Upper Leg, R Upper Leg, L Lower Leg (including foot), R Lower Leg (including foot), Chest, Abdomen Shower/Bathe Self (QC): 3 Upper Body Dressing (QC): 5 Lower Body Dressing (QC): 5 On/Off Footwear (QC): 5 Toileting Hygiene (QC): 6 Toilet Transfer (QC): 6 Assessment/Plan Assessment and Plan Assess & Plan/Chief Complaint Assessment: Myopathy Intellectual disability Cachexia Seizure d/o 12/15/20 new onset Chronic diarrhea Anemia Hypocalcemia Metabolic acidosis Prednisone dependence Plan: IRF protocol Check labs Monitor pain Seizure precautions 12/29/20: Monitor closely Increase diet Monitor creat and hgb 12/30/20: Monitor hgb Fall risk 12/31/20: Monitor BP Improve dietary consumption (1) Myopathy (2) Seizure (3) Chronic diarrhea (4) Hypocalcemia (5) Renal transplant recipient (6) PKD (polycystic kidney disease) (7) Intellectual disability (8) Hypomagnesemia (9) Anemia (10) Buttock wound (11) Port-A-Cath in place (12) Cachexia (13) Vitamin D deficiency (14) Steroid dependence ORAL RIVERA DO Dec 31, 2020 09:26
--- NOTE | 2020-12-31 10:56 | Speech Therapy Daily Note ---
Speech Daily Progress Note Subjective Date Seen by Provider: Dec 31, 2020 Time Seen by Provider: 00:30 Patient was resting in his recliner following all of his medication administration. Objective Patient completed a 100 piece puzzle with self correction as needed at 85% given minimal cues. Assessment Assessment Current Status: Good Progress Treatment Plan Continue Plan of Care Speech Short Term Goals Short Term Goals Short Term Goals 1) Patient will complete safety awareness tasks related to his daily needs with 80% or greater with minimal cuing. 2) Patient will complete cognitive tasks at his intellectual level with 80% or greater with minimal cuing. Speech Torts Law Professor Goals Skilled Nursing Goals Patient will improve his cognitive-communication skills in order to return to his prior level of function. Speech-Plan Patient/Family Goals Patient/Family Goals: Patient will return to his home where he lives with his brother and family. Treatment Plan Speech Therapy Treatment Plan: Continue Plan of Care Treatment Duration: Jan 09, 2021 Frequency: 4 times per week (Patient will receive skilled ST 4-5x per week) Estimated Hrs Per Day: .5 hour per day Rehab Potential: Good Barriers to Learning: Patient is mildly intellectually challenged, critical illness/recovery Pt/Family Agrees to Plan: Yes Safety Risks/Education Teaching Recipient: Patient Teaching Methods: Demonstration, Discussion Response to Teaching: Verbalize Understanding, Return Demonstration Education Topics Provided: Continued safety within his room and communication of wants/needs Time Speech Therapy Time In: 09:00 Speech Therapy Time Out: 09:30 Total Billed Time: 30 Billed Treatment Time 1TOM BETHAN[address] ST Dec 31, 2020 10:56
--- NOTE | 2020-12-31 11:41 | Occupational Ther Daily Note ---
OT Current Status-Daily Note Subjective Pt alert, sitting in recliner. Pt agrees to therapy. No c/o pain. Mental Status/Objective Patient Orientation: Person, Place, Time, Situation ADL-Treatment Pt able to complete own meal set up and uses regular utensils to eat. Pt agrees to shower. Pt retrieves clothing using FWW with SBA for safety. Pt transports clothing to bathroom. Transfers into shower with SBA for safety. SBA during shower due to pt wanting to adjunct instructor chemistry shower. LOB 1x due to attempting to stand on 1 foot while washing the other, pt then completed rest of shower sitting on shower bench. Pt able to complete dressing by self. Pt stands at sink to complete oral care and grooming independently. After session, pt sitting in recliner with call light/phone in reach. All needs met in room. Therapy Code Descriptions/Definitions Functional [place] Measure: 0=Not Assessed/NA 4=Minimal Assistance 1=Total Assistance 5=Supervision or Setup 2=Maximal Assistance 6=Modified [place] 3=Moderate Assistance 7=Complete IndependenceSCALE: Activities may be completed with or without assistive devices. 0-Wfqeofpike-govfmhm completes the activity by him/herself with no assistance from a helper. 5-Set-up or Clean-up Assistance-helper sets up or cleans up; patient completes activity. [place] assists only prior to or following the activity. 4-Supervision or Touching Assistance-helper provides verbal cues and/or touching/steadying and/or contact guard assistance as patient completes activity. Assistance may be provided throughout the activity or intermittently. 3-Partial/Moderate Assistance-helper does LESS THAN HALF the effort. [place] lifts, holds or supports trunk or limbs, but provides less than half the effort. 2-Substantial/Maximal Assistance-helper does MORE THAN HALF the effort. [place] lifts or holds trunk or limbs and provides more than half the effort. 8-Guxrognob-evgbnr does ALL the effort. Patient does none of the effort to complete the activity. Or, the assistance of 2 or more helpers is required for the patient to complete the activity. If activity was not attempted, code reason: 7-Patient Refused. 9-Not Applicable-not attempted and the patient did not perform the activity before the current illness, exacerbation or injury. 10-Not Attempted due to Environmental Limitations-(lack of equipment, weather restraints, etc.). 88-Not Attempted due to Medical Conditions or Safety Concerns. Eating (QC): 6 Oral Hygiene (QC): 6 Shower/Bathe Self (QC): 4 Upper Body Dressing (QC): 4 Lower Body Dressing (QC): 4 On/Off Footwear: 4 Toileting Hygiene (QC): 6 Toilet Transfer (QC): 6 OT Short Term Goals Short Term Goals Time Frame: Jan 07, 2021 Oral hygiene: 5 Toileting hygiene: 5 Shower/bathe self: 5 Upper body dressin Lower body dressin OT Assistant Refinery Operator Goals Jail Goals Time Frame: Jan 16, 2021 Eating (QC): 6 Oral Hygiene (QC): 6 Toileting Hygiene (QC): 6 Shower/Bathe Self (QC): 6 Upper Body Dressing (QC): 6 Lower Body Dressing (QC): 6 On/Off Footwear (QC): 6 Additional Goals: 1-Demonstrate ADL Tasks, 2-Verbalize Understanding, 3- ImproveStrength/Berta 1=Demonstrate adherence to instructed precautions during ADL tasks. 2=Patient will verbalize/demonstrate understanding of assistive devices/modifications for ADL. 3=Patient will improve strength/tolerance for activity to enable patient to perform ADL's. OT Education/Plan Problem List/Assessment Assessment: Decreased Activ Tolerance, Impaired Self-Care Skills Discharge Recommendations Plan/Recommendations: Continue POC Treatment Plan/Plan of Care Patient would benefit from OT for education, treatment and training to promote independence in ADL's, mobility, safety and/or upper extremity function for ADL's. Plan of Care: ADL Retraining, Functional Mobility, Group Exercise/Act as Ind, UE Funct Exercise/Act Treatment Duration: Jan 16, 2021 Frequency: At least 5 of 7 days/Wk (IRF) Estimated Hrs Per Day: 1.5 hours per day Agreement: Yes Rehab Potential: Good Time/GCodes Start Time: 07:15 Stop Time: 08:30 Total Time Billed (hr/min): 75 Billed Treatment Time 1 visit-ADL 5 (75 min) DEJON PALM Dec 31, 2020 11:41
--- NOTE | 2020-12-31 11:57 | Physical Therapy Daily Note ---
PT Daily Note-Current Subjective Pt. up in recliner, pleasant but resistive of therapy and c/o fatigue. States during Rx "But I've done that before". Needs much cajoling and encouragement to participate in Rx. Pain Numeric Pain Scale: 10-Worst Possible Pain (pt. states pain is "11" this PARTS COUNTER REPRESENTATIVE feels sure pt. does not understand the scale.) Location: Medial Location Body Site: Back Pain Description: Ache Comment: pt. did not c/o pain during Rx , gave 11 rating when asked if he had pain. Mental Status Patient Orientation: Person, MR Attachments: Other-See Comments (mask while out of room) Transfers SCALE: Activities may be completed with or without assistive devices. 9-Htbqicygjg-svaufpx completes the activity by him/herself with no assistance fr om a helper. 5-Set-up or Clean-up Assistance-helper sets up or cleans up; patient completes activity. [place] assists only prior to or following the activity. 4-Supervision or Touching Assistance-helper provides verbal cues and/or touching/steadying and/or contact guard assistance as patient completes activity. Assistance may be provided throughout the activity or intermittently. 3-Partial/Moderate Assistance-helper does LESS THAN HALF the effort. [place] lifts, holds or supports trunk or limbs, but provides less than half the effort. 2-Substantial/Maximal Assistance-helper does MORE THAN HALF the effort. [place] lifts or holds trunk or limbs and provides more than half the effort. 1-Ytuikbpms-nilypj does ALL the effort. Patient does none of the effort to complete the activity. Or, the assistance of 2 or more helpers is required for the patient to complete the activity. If activity was not attempted, code reason: 7-Patient Refused. 9-Not Applicable-not attempted and the patient did not perform the activity before the current illness, exacerbation or injury. 10-Not Attempted due to Environmental Limitations-(lack of equipment, weather restraints, etc.). 88-Not Attempted due to Medical Conditions or Safety Concerns. Sit to Stand (QC): 4 pt. with difficulty sit to stand from standard height seating surface, min to CGA needed or cushion to raise surface or lift chair etc Weight Bearing Right Lower Extremity: Right Full Weight Bearing Left Lower Extremity: Left Full Weight Bearing Gait Training Does the Patient Walk?: Yes Walk 10 feet (QC): 5 Walk 50 ft with 2 Turns(QC): 4 Walk 150 ft (QC): 4 Gait Persons Needed: 1 Gait Assistive Device: FWW pt. c/o fatigue with gait, kyphotic, heavy wt bearing on FWW, head down Wheelchair Training Does the Pt Use a Wheelchair?: Yes Type of Wheelchair: Manual pt. requests to get in w/c to go outside, pt. declining most of exercises was happy to propel w/c and did so 300ft, on straight ways as well as gentle grade ramp 75 ft up and down, pt. also backed w/c in out elevator and doors to outside with safe precise technique (likely experienced at this at some point) Exercises Seated Therapy Exercises: Ankle pumps, Sit to stand, Long arc quads, Hip flexion Seated Reps: 12 NuStep Minutes: 10 NuStep Workload: 4 Treatments pt. difficult to keep motivated to continue therapy, more cooperative if given multiple choices etc and some freedom Assessment Current Status: Good Progress gaining strength and function with guidance PT Short Term Goals Short Term Goals Time Frame: Jan 05, 2021 Sit to lyin Lying to sitting on side of be: 5 Sit to stand: 4 Chair/yfb-uc-eoghg transfer: 4 Walk 150 feet: 4 4 steps: 4 PT Production Corrugator Goals Production Corrugator Goals PT Production Corrugator Goals Time Frame: Jan 19, 2021 Roll Left & Right (QC): 6 Sit to Lying (QC): 6 Lying-Sitting on Side/Bed(QC): 6 Sit to Stand (QC): 6 Chair/Tnz-wa-Nntft Xfer(QC): 6 Toilet Transfer (QC): 6 Car Transfer (QC): 6 Does the Patient Walk: Yes Walk 10 feet (QC): 6 Walk 50ft with 2 Turns (QC): 6 Walk 150 ft (QC): 6 Walking 10ft on Uneven Surface: 6 1 Step (curb) (QC): 6 4 Steps (QC): 6 12 Steps (QC): 4 Picking up an Object (QC): 4 Does the Pt use WC or Scooter?: No Wheel 50 feet with 2 turns (QC: 9 Wheel 150 feet: 9 PT Plan Treatment/Plan Treatment Plan: Continue Plan of Care Treatment Plan: Bed Mobility, Education, Functional Activity Berta, Functional Strength, Group Therapy, Gait, Safety, Therapeutic Exercise, Transfers Treatment Duration: Jan 19, 2021 Frequency: At least 5 of 7 days/Wk (IRF) Estimated Hrs Per Day: 1.5 hours per day (1 to 1. 5) Patient and/or Family Agrees t: Yes Safety Risks/Education Patient Education: Gait Training, Transfer Techniques, Correct Positioning, W/C Management, Safety Issues Teaching Recipient: Patient Teaching Methods: Demonstration, Discussion Response to Teaching: Verbalize Understanding, Unable to Comprehend, Reinforcement Needed Time/GCodes Time In: 1045 Time Out: 1200 Total Billed Treatment Time: 75 Total Billed Treatment 1,GT25m,FA35m,EX15m IFEANYI FRANKLIN PTA Dec 31, 2020 11:57
[2020-12-31] MEDS ORDERED: polyethylene glycoL POWDER 17 GM (MIRALAX) PACK PO PRN (16:45)
[2020-12-31] MEDS ORDERED: DOCUSATE SODIUM 100 MG (COLACE) CAP PO PRN (16:45)
[2020-12-31 18:05] VITALS: BP 119/65
[2020-12-31] MEDS ORDERED: SENNA W/DOCUSATE (SENOKOT S) TABLET PO PRN (23:00)
[2021-01-01 05:29] VITALS: BP 102/69
[2021-01-01] MEDS: MULTIVIT W/MINERALS TAB (THERAGRAN M) PO SCH (06:25)
[2021-01-01] MEDS: LIPASE/AMYLASE/PROTEASE (PANCRELIPASE) 5,000 UNITS CAP PO SCH ×3 (07:40→18:11)
[2021-01-01] MEDS: VITAMIN D3 25 MCG (1,000 UNITS) TABLET PO SCH (07:41)
[2021-01-01] MEDS: LOPERAMIDE 2 MG (IMODIUM) TABLET PO PRN (07:42)
[2021-01-01] MEDS: CALCITRIOL 0.25 MCG (ROCALTROL) CAPSULE PO SCH ×2 (07:42→21:51)
[2021-01-01] MEDS: SODIUM BICARBONATE 650 MG TABLET (NON-FORMULARY) PO SCH ×3 (07:42→21:55)
[2021-01-01] MEDS: PANTOPRAZOLE 40 MG (PROTONIX) TAB PO SCH ×2 (07:42→21:51)
[2021-01-01] MEDS: ALLOPURINOL 100 MG (ZYLOPRIM) TAB PO SCH (07:42)
[2021-01-01] MEDS: predniSONE 5 MG TAB PO SCH (07:43)
[2021-01-01] MEDS: TACROLIMUS 1 MG (PROGRAF) CAP NON-FORMULARY PO SCH ×2 (07:48→21:51)
[2021-01-01] MEDS: KETOCONAZOLE 2% TP SCH ×2 (07:48→21:55)
[2021-01-01] MEDS: TERIPARATIDE 600 MCG/2.4 ML (FORTEO) SYR SQ SCH (07:48)
[2021-01-01] MEDS: CALCIUM CITRATE 950 MG PO SCH ×3 (07:48→18:12)
--- NOTE | 2021-01-01 08:29 | Occupational Ther Daily Note ---
OT Current Status-Daily Note Subjective Pt alert, sitting in recliner. Pt agrees to therapy after encouragement due to breakfast coming late. C/o pain at neck, warm pad placed around area. Mental Status/Objective Patient Orientation: Person, Place, MR, Time, Situation ADL-Treatment Pt agrees to shower after discussing pt's schedule at home. Pt requested to use bathroom. Pt able to transfer to/from toilet independently. Pt completed hygiene and clothing manipulation independently. Pt requested to eat something prior to shower due to being shaky and c/o stomach hurting. Pt able to open jose e cracker package and place sugar and creamer into coffee. Noted that breakfast was not coming until 0800, pt required encouragement to take shower prior to breakfast. SBA for safety only while pt completed shower by self using grabbars and shower bench. Pt completed dressing by self after set up. Pt took increased time today due to procrastination and talking through tasks to encourage pt to complete by self. Pt then was able to complete own meal set up and uses regular utensils to eat. After session, pt sitting in recliner eating breakfast. Call light/phone in reach with safety measures in place. All needs met. Therapy Code Descriptions/Definitions Functional [place] Measure: 0=Not Assessed/NA 4=Minimal Assistance 1=Total Assistance 5=Supervision or Setup 2=Maximal Assistance 6=Modified [place] 3=Moderate Assistance 7=Complete IndependenceSCALE: Activities may be completed with or without assistive devices. 9-Uweklgrfpe-exjwxej completes the activity by him/herself with no assistance from a helper. 5-Set-up or Clean-up Assistance-helper sets up or cleans up; patient completes activity. [place] assists only prior to or following the activity. 4-Supervision or Touching Assistance-helper provides verbal cues and/or touching/steadying and/or contact guard assistance as patient completes activity. Assistance may be provided throughout the activity or intermittently. 3-Partial/Moderate Assistance-helper does LESS THAN HALF the effort. [place] lifts, holds or supports trunk or limbs, but provides less than half the effort. 2-Substantial/Maximal Assistance-helper does MORE THAN HALF the effort. [place] lifts or holds trunk or limbs and provides more than half the effort. 6-Gnaqrfugg-nfnerr does ALL the effort. Patient does none of the effort to complete the activity. Or, the assistance of 2 or more helpers is required for the patient to complete the activity. If activity was not attempted, code reason: 7-Patient Refused. 9-Not Applicable-not attempted and the patient did not perform the activity before the current illness, exacerbation or injury. 10-Not Attempted due to Environmental Limitations-(lack of equipment, weather restraints, etc.). 88-Not Attempted due to Medical Conditions or Safety Concerns. Eating (QC): 6 Oral Hygiene (QC): 6 (Pt stood at sink to complete oral care and grooming inde pendently.) Shower/Bathe Self (QC): 4 (SBA only) Upper Body Dressing (QC): 5 Lower Body Dressing (QC): 5 On/Off Footwear: 5 (Donning/doffing socks and shoes) Toileting Hygiene (QC): 6 Toilet Transfer (QC): 6 OT Short Term Goals Short Term Goals Time Frame: Jan 07, 2021 Oral hygiene: 5 Toileting hygiene: 5 Shower/bathe self: 5 Upper body dressin Lower body dressin OT Conditioning Yard Supervisor Goals Conditioning Yard Supervisor Goals Time Frame: Jan 16, 2021 Eating (QC): 6 (met) Oral Hygiene (QC): 6 (met) Toileting Hygiene (QC): 6 (met) Shower/Bathe Self (QC): 6 Upper Body Dressing (QC): 6 Lower Body Dressing (QC): 6 On/Off Footwear (QC): 6 Additional Goals: 1-Demonstrate ADL Tasks, 2-Verbalize Understanding, 3- ImproveStrength/Berta 1=Demonstrate adherence to instructed precautions during ADL tasks. 2=Patient will verbalize/demonstrate understanding of assistive devices/modifications for ADL. 3=Patient will improve strength/tolerance for activity to enable patient to perform ADL's. OT Education/Plan Problem List/Assessment Assessment: Decreased Activ Tolerance, Impaired Cognition Discharge Recommendations Plan/Recommendations: Continue POC Treatment Plan/Plan of Care Patient would benefit from OT for education, treatment and training to promote independence in ADL's, mobility, safety and/or upper extremity function for ADL's. Plan of Care: ADL Retraining, Functional Mobility, Group Exercise/Act as Ind, UE Funct Exercise/Act Treatment Duration: Jan 16, 2021 Frequency: At least 5 of 7 days/Wk (IRF) Estimated Hrs Per Day: 1.5 hours per day Agreement: Yes Rehab Potential: Good Time/GCodes Start Time: 07:00 Stop Time: 08:15 Total Time Billed (hr/min): 75 Billed Treatment Time 1 visit-ADL 5 (75 min) DEJON PALM Jan 01, 2021 08:29
--- NOTE | 2021-01-01 10:25 | PM&R Progress Note ---
Subjective HPI/CC On Admission Date Seen by Provider: Jan 01, 2021 Time Seen by Provider: 10:30 Subjective/Events-last exam 01/01/21: Patient doing well Diarrhea still an issue Imodium given Creon helpful Back pain requiring Kpad 12/31/20: Pt doing really well Has a stage II decubitus ulcer on his coccyx Eats really well Denies any other significant pain Checked meds and labs 12/30/20: Pt doing very well Having loose bowels Working with PT Overall doing very well 12/29/20: Pt doing pretty well Spilled his urinal and got upset with himself WBC 2.5, Hgb 8.2 Checking iron level Creatinine 1.73 Albumin 2.5 and potassium 5.3 Goes by jeronimo Adames Review of Systems General: Fatigue, Malaise Neurological: Weakness Objective Exam Vital Signs Vital Signs Date Time Temp Pulse Resp B/P (MAP) Pulse Ox O2 Delivery O2 Flow Rate FiO2 01/01/21 21:53 94 Room Air 01/01/21 16:24 37.3 106 16 107/53 (71) Capillary Refill : General Appearance: No Apparent Distress, WD/WN, Anxious, Chronically ill, Thin, Other (pale, fatigued) HEENT: PERRL/EOMI, Normal ENT Inspection, Pharynx Normal Neck: Full Range of Motion, Normal Inspection, Non Tender, Supple, Carotid Bruit Respiratory: Chest Non Tender, Lungs Clear, Normal Breath Sounds, No Accessory Muscle Use, No Respiratory Distress Cardiovascular: Regular Rate, Rhythm, No Gallop, No JVD, No Murmur, Normal Peripheral Pulses Gastrointestinal: Normal Bowel Sounds, No Organomegaly, No Pulsatile Mass, Non Tender, Soft Back: Normal Inspection, No CVA Tenderness, No Vertebral Tenderness Extremity: Normal Capillary Refill, Normal Inspection, Normal Range of Motion, Non Tender, No Calf Tenderness, Pedal Edema Neurologic/Psychiatric: Alert, Oriented x3, Normal Mood/Affect, senior financial consultant II-XII Norm as Tested, Abnormal Gait, Disoriented, Motor Weakness (decreased extremities 4/5) Skin: Normal Color, Warm/Dry Lymphatic: No Adenopathy Results/Procedures Lab Patient resulted labs reviewed. FIM Transfers Therapy Code Descriptions/Definitions Functional [place] Measure: 0=Not Assessed/NA 4=Minimal Assistance 1=Total Assistance 5=Supervision or Setup 2=Maximal Assistance 6=Modified [place] 3=Moderate Assistance 7=Complete IndependenceSCALE: Activities may be completed with or without assistive devices. 4-Slogmncifv-uzihghc completes the activity by him/herself with no assistance from a helper. 5-Set-up or Clean-up Assistance-helper sets up or cleans up; patient completes activity. [place] assists only prior to or following the activity. 4-Supervision or Touching Assistance-helper provides verbal cues and/or touchin g/steadying and/or contact guard assistance as patient completes activity. Assistance may be provided throughout the activity or intermittently. 3-Partial/Moderate Assistance-helper does LESS THAN HALF the effort. [place] lifts, holds or supports trunk or limbs, but provides less than half the effort. 2-Substantial/Maximal Assistance-helper does MORE THAN HALF the effort. [place] lifts or holds trunk or limbs and provides more than half the effort. 2-Cryrqbigi-prztms does ALL the effort. Patient does none of the effort to complete the activity. Or, the assistance of 2 or more helpers is required for the patient to complete the activity. If activity was not attempted, code reason: 7-Patient Refused. 9-Not Applicable-not attempted and the patient did not perform the activity before the current illness, exacerbation or injury. 10-Not Attempted due to Environmental Limitations-(lack of equipment, weather restraints, etc.). 88-Not Attempted due to Medical Conditions or Safety Concerns. Roll Left to Right (QC): 4 Sit to Lying (QC): 4 Sit to Stand (QC): 4 Chair/Vlt-va-Sjgen Xfer(QC): 3 (min assist to steady him) Car Transfer (QC): 3 (light assist with legs to get into car) Gait Training Does the Patient Walk?: Yes Distance: 200 ft Walk 10 feet (QC): 5 Walk 50 ft with 2 Turns(QC): 4 Walk 150 ft (QC): 4 Walking 10ft/uneven surface-QC: 3 (CGA) Gait Persons Needed: 1 Gait Assistive Device: FWW Wheelchair Training Does the Pt Use a Wheelchair?: No Wheel 50 ft with 2 turns (QC): 9 Wheel 150 ft (QC): 9 Stair Training 1 Step (curb) (QC): 3 (min assist as he steps up) 4 Steps (QC): 3 (min assist for balance and safety; used B handrails) 12 Steps (QC): 88 Balance Picking up an Object (QC): 88 ADL-Treatment Eating (QC): 6 Oral Hygiene (QC): 6 (Pt stood at sink to complete oral care and grooming independently.) Bathing Location: L Arm, R Arm, L Upper Leg, R Upper Leg, L Lower Leg (including foot), R Lower Leg (including foot), Chest, Abdomen Shower/Bathe Self (QC): 4 (SBA only) Upper Body Dressing (QC): 5 Lower Body Dressing (QC): 5 On/Off Footwear (QC): 5 (Donning/doffing socks and shoes) Toileting Hygiene (QC): 6 Toilet Transfer (QC): 6 Assessment/Plan Assessment and Plan Assess & Plan/Chief Complaint Assessment: Myopathy Intellectual disability Cachexia Seizure d/o 12/15/20 new onset Chronic diarrhea Anemia Hypocalcemia Metabolic acidosis Prednisone dependence Plan: IRF protocol Check labs Monitor pain Seizure precautions 12/29/20: Monitor closely Increase diet Monitor creat and hgb 12/30/20: Monitor hgb Fall risk 12/31/20: Monitor BP Improve dietary consumption 01/01/21: Monitor diarrhea Monitor for falls (1) Myopathy (2) Seizure (3) Chronic diarrhea (4) Hypocalcemia (5) Renal transplant recipient (6) PKD (polycystic kidney disease) (7) Intellectual disability (8) Hypomagnesemia (9) Anemia (10) Buttock wound (11) Port-A-Cath in place (12) Cachexia (13) Vitamin D deficiency (14) Steroid dependence ORAL RIVERA DO Jan 01, 2021 10:25
--- NOTE | 2021-01-01 11:54 | Physical Therapy Daily Note ---
PT Daily Note-Current Subjective Pt. states he is ready to "go do something" . Pt. wants to sit in the car simulator and have his photo taken Mental Status Patient Orientation: Person, MR Transfers SCALE: Activities may be completed with or without assistive devices. 8-Ygrkrpcfun-gxjfnsd completes the activity by him/herself with no assistance from a helper. 5-Set-up or Clean-up Assistance-helper sets up or cleans up; patient completes activity. [place] assists only prior to or following the activity. 4-Supervision or Touching Assistance-helper provides verbal cues and/or touching/steadying and/or contact guard assistance as patient completes activity. Assistance may be provided throughout the activity or intermittently. 3-Partial/Moderate Assistance-helper does LESS THAN HALF the effort. [place] lifts, holds or supports trunk or limbs, but provides less than half the effort. 2-Substantial/Maximal Assistance-helper does MORE THAN HALF the effort. [place] lifts or holds trunk or limbs and provides more than half the effort. 6-Bhvezmtkn-txrlcn does ALL the effort. Patient does none of the effort to complete the activity. Or, the assistance of 2 or more helpers is required for the patient to complete the activity. If activity was not attempted, code reason: 7-Patient Refused. 9-Not Applicable-not attempted and the patient did not perform the activity before the current illness, exacerbation or injury. 10-Not Attempted due to Environmental Limitations-(lack of equipment, weather restraints, etc.). 88-Not Attempted due to Medical Conditions or Safety Concerns. Roll Left & Right (QC): 6 Sit to Lying (QC): 6 Lying to Sitting/Side of Bed(Q: 6 Sit to Stand (QC): 4 Chair/Xpm-qm-Vhjdz Xfer(QC): 6 Toilet Transfer (QC): 6 Car Transfer (QC): 6 uses lift chair, requires good effort for pt. to rise from std height chair Weight Bearing Right Lower Extremity: Right Full Weight Bearing Left Lower Extremity: Left Full Weight Bearing Gait Training Does the Patient Walk?: Yes Walk 10 feet (QC): 5 Walk 50 ft with 2 Turns(QC): 5 Walk 150 ft (QC): 5 Gait Persons Needed: 1 Gait Assistive Device: FWW 500ft, 300ft, 150ft slow, no LOB, kyphotic, leans on FWW Exercises Seated Therapy Exercises: Ankle pumps, Sit to stand, Long arc quads, Chair press-ups, Hip flexion, Hip abd/add Seated Reps: 20 NuStep Minutes: 12 NuStep Workload: 3 Treatments Pts brother was phoned and approves photo taken of pt. Brother to come to sign release for pts requested photo in car simulator Assessment Current Status: Good Progress pt. needs much bargaining and cajoling to participate in Rx but with some stops and finally ending at puzzle he is working on pt was cooperative PT Short Term Goals Short Term Goals Time Frame: Jan 05, 2021 Sit to lyin Lying to sitting on side of be: 5 Sit to stand: 4 Chair/byd-fj-rgebh transfer: 4 Walk 150 feet: 4 4 steps: 4 PT Shelter Goals Sales Consulting Director Goals PT Sales Consulting Director Goals Time Frame: Jan 19, 2021 Roll Left & Right (QC): 6 Sit to Lying (QC): 6 Lying-Sitting on Side/Bed(QC): 6 Sit to Stand (QC): 6 Chair/Vtp-ou-Fssnd Xfer(QC): 6 Toilet Transfer (QC): 6 Car Transfer (QC): 6 Does the Patient Walk: Yes Walk 10 feet (QC): 6 Walk 50ft with 2 Turns (QC): 6 Walk 150 ft (QC): 6 Walking 10ft on Uneven Surface: 6 1 Step (curb) (QC): 6 4 Steps (QC): 6 12 Steps (QC): 4 Picking up an Object (QC): 4 Does the Pt use WC or Scooter?: No Wheel 50 feet with 2 turns (QC: 9 Wheel 150 feet: 9 PT Plan Treatment/Plan Treatment Plan: Continue Plan of Care Treatment Plan: Bed Mobility, Education, Functional Activity Berta, Functional Strength, Group Therapy, Gait, Safety, Therapeutic Exercise, Transfers Treatment Duration: Jan 19, 2021 Frequency: At least 5 of 7 days/Wk (IRF) Estimated Hrs Per Day: 1.5 hours per day (1 to 1. 5) Patient and/or Family Agrees t: Yes Safety Risks/Education Patient Education: Gait Training, Transfer Techniques, Correct Positioning, Disease Process, Safety Issues Teaching Recipient: Patient Teaching Methods: Demonstration, Discussion Response to Teaching: Verbalize Understanding, Return Demonstration, Reinforcement Needed Time/GCodes Time In: 1100 (1245) Time Out: 1200 (1300) Total Billed Treatment Time: 75 Total Billed Treatment 1x2,GT30m,EX30m,FA15m IFEANYI FRANKLIN PATIENT REGISTRATION REPRESENTATIVE Jan 01, 2021 11:54
[2021-01-01] MEDS: ACETAMINOPHEN 325 MG TABLET PO PRN (12:54)
--- NOTE | 2021-01-01 13:32 | Speech Therapy Daily Note ---
Speech Daily Progress Note Subjective Date Seen by Provider: Jan 01, 2021 Time Seen by Provider: 00:30 Patient was excited about his new shoes so he can walk a lot. Objective Patient continued working on a 500 piece puzzle with recall noted during the process at 80% with minimal cues. Assessment Assessment Current Status: Good Progress Treatment Plan Continue Plan of Care Speech Short Term Goals Short Term Goals Short Term Goals 1) Patient will complete safety awareness tasks related to his daily needs with 80% or greater with minimal cuing. 2) Patient will complete cognitive tasks at his intellectual level with 80% or greater with minimal cuing. Speech Snf Goals Specimen Boss Goals Patient will improve his cognitive-communication skills in order to return to his prior level of function. Speech-Plan Patient/Family Goals Patient/Family Goals: Patient will return to live with his brother and family upon discharge. Treatment Plan Speech Therapy Treatment Plan: Continue Plan of Care Treatment Duration: Jan 09, 2021 Frequency: 4 times per week (Patient will receive skilled ST 4-5x per week) Estimated Hrs Per Day: .5 hour per day Rehab Potential: Good Barriers to Learning: Patient is mildly intellectually challenged, critical illness/recovery Pt/Family Agrees to Plan: Yes Safety Risks/Education Teaching Recipient: Patient Teaching Methods: Demonstration, Discussion Response to Teaching: Verbalize Understanding, Return Demonstration Education Topics Provided: Continued safety within his room Time Speech Therapy Time In: 08:45 Speech Therapy Time Out: 09:15 Total Billed Time: 30 Billed Treatment Time 1, CHARAN GRULLON Jan 01, 2021 13:32
[2021-01-01 16:24] VITALS: BP 107/53
[2021-01-02 05:45] VITALS: BP 101/64
--- NOTE | 2021-01-02 06:12 | PM&R Progress Note ---
Subjective HPI/CC On Admission Date Seen by Provider: Jan 02, 2021 Time Seen by Provider: 13:00 Subjective/Events-last exam 01/02/21: Upset he can't go home today which was never the plan Rechecking him for progress next week as per our standard No pain reported except back Low calcium is a chronic issue and he is on max meds Eating a lot 01/01/21: Patient doing well Diarrhea still an issue Imodium given Creon helpful Back pain requiring Kpad 12/31/20: Pt doing really well Has a stage II decubitus ulcer on his coccyx Eats really well Denies any other significant pain Checked meds and labs 12/30/20: Pt doing very well Having loose bowels Working with PT Overall doing very well 12/29/20: Pt doing pretty well Spilled his urinal and got upset with himself WBC 2.5, Hgb 8.2 Checking iron level Creatinine 1.73 Albumin 2.5 and potassium 5.3 Goes by jeronimo Adames Review of Systems General: Fatigue, Malaise Neurological: Weakness Objective Exam Vital Signs Vital Signs Date Time Temp Pulse Resp B/P (MAP) Pulse Ox O2 Delivery O2 Flow Rate FiO2 01/02/21 16:00 37.6 114 18 95/63 (74) 97 01/02/21 09:00 Room Air Capillary Refill : General Appearance: No Apparent Distress, WD/WN, Anxious, Chronically ill, Thin, Other (pale, fatigued) HEENT: PERRL/EOMI, Normal ENT Inspection, Pharynx Normal Neck: Full Range of Motion, Normal Inspection, Non Tender, Supple, Carotid Bruit Respiratory: Chest Non Tender, Lungs Clear, Normal Breath Sounds, No Accessory Muscle Use, No Respiratory Distress Cardiovascular: Regular Rate, Rhythm, No Gallop, No JVD, No Murmur, Normal Peripheral Pulses Gastrointestinal: Normal Bowel Sounds, No Organomegaly, No Pulsatile Mass, Non Tender, Soft Back: Normal Inspection, No CVA Tenderness, No Vertebral Tenderness Extremity: Normal Capillary Refill, Normal Inspection, Normal Range of Motion, Non Tender, No Calf Tenderness, Pedal Edema Neurologic/Psychiatric: Alert, Oriented x3, Normal Mood/Affect, salvage mechanic II-XII Norm as Tested, Abnormal Gait, Disoriented, Motor Weakness (decreased extremities 4/5) Skin: Normal Color, Warm/Dry Lymphatic: No Adenopathy Results/Procedures Lab Laboratory Tests 01/02/21 06:25 Patient resulted labs reviewed. FIM Transfers Therapy Code Descriptions/Definitions Functional [place] Measure: 0=Not Assessed/NA 4=Minimal Assistance 1=Total Assistance 5=Supervision or Setup 2=Maximal Assistance 6=Modified [place] 3=Moderate Assistance 7=Complete IndependenceSCALE: Activities may be completed with or without assistive devices. 1-Yhuzbsrhey-ormbqzn completes the activity by him/herself with no assistance from a helper. 5-Set-up or Clean-up Assistance-helper sets up or cleans up; patient completes a ctivity. [place] assists only prior to or following the activity. 4-Supervision or Touching Assistance-helper provides verbal cues and/or touching/steadying and/or contact guard assistance as patient completes activity. Assistance may be provided throughout the activity or intermittently. 3-Partial/Moderate Assistance-helper does LESS THAN HALF the effort. [place] lifts, holds or supports trunk or limbs, but provides less than half the effort. 2-Substantial/Maximal Assistance-helper does MORE THAN HALF the effort. [place] lifts or holds trunk or limbs and provides more than half the effort. 9-Uqucwrhit-yzzagz does ALL the effort. Patient does none of the effort to complete the activity. Or, the assistance of 2 or more helpers is required for the patient to complete the activity. If activity was not attempted, code reason: 7-Patient Refused. 9-Not Applicable-not attempted and the patient did not perform the activity before the current illness, exacerbation or injury. 10-Not Attempted due to Environmental Limitations-(lack of equipment, weather restraints, etc.). 88-Not Attempted due to Medical Conditions or Safety Concerns. Roll Left to Right (QC): 6 Sit to Lying (QC): 6 Sit to Stand (QC): 4 Chair/Ppl-qr-Jfvhi Xfer(QC): 6 Car Transfer (QC): 6 Gait Training Does the Patient Walk?: Yes Distance: 200 ft Walk 10 feet (QC): 5 Walk 50 ft with 2 Turns(QC): 5 Walk 150 ft (QC): 5 Walking 10ft/uneven surface-QC: 3 (CGA) Gait Persons Needed: 1 Gait Assistive Device: FWW Wheelchair Training Does the Pt Use a Wheelchair?: No Wheel 50 ft with 2 turns (QC): 9 Wheel 150 ft (QC): 9 Stair Training 1 Step (curb) (QC): 3 (min assist as he steps up) 4 Steps (QC): 3 (min assist for balance and safety; used B handrails) 12 Steps (QC): 88 Balance Picking up an Object (QC): 88 ADL-Treatment Eating (QC): 6 Oral Hygiene (QC): 6 (Pt stood at sink to complete oral care and grooming independently.) Bathing Location: L Arm, R Arm, L Upper Leg, R Upper Leg, L Lower Leg (including foot), R Lower Leg (including foot), Chest, Abdomen Shower/Bathe Self (QC): 4 (SBA only) Upper Body Dressing (QC): 5 Lower Body Dressing (QC): 5 On/Off Footwear (QC): 5 (Donning/doffing socks and shoes) Toileting Hygiene (QC): 6 Toilet Transfer (QC): 6 Assessment/Plan Assessment and Plan Assess & Plan/Chief Complaint Assessment: Myopathy Intellectual disability Cachexia Seizure d/o 12/15/20 new onset Chronic diarrhea Anemia Hypocalcemia Metabolic acidosis Prednisone dependence Plan: IRF protocol Check labs Monitor pain Seizure precautions 12/29/20: Monitor closely Increase diet Monitor creat and hgb 12/30/20: Monitor hgb Fall risk 12/31/20: Monitor BP Improve dietary consumption 01/01/21: Monitor diarrhea Monitor for falls 01/02/21: Patient wants to go home soon Monitor for falls (1) Myopathy (2) Seizure (3) Chronic diarrhea (4) Hypocalcemia (5) Renal transplant recipient (6) PKD (polycystic kidney disease) (7) Intellectual disability (8) Hypomagnesemia (9) Anemia (10) Buttock wound (11) Port-A-Cath in place (12) Cachexia (13) Vitamin D deficiency (14) Steroid dependence ORAL RIVERA DO Jan 02, 2021 06:12
[2021-01-02] MEDS: MULTIVIT W/MINERALS TAB (THERAGRAN M) PO SCH (06:15)
[2021-01-02] MEDS: ACETAMINOPHEN 325 MG TABLET PO PRN ×2 (06:15→14:35)
[2021-01-02 06:31] LABS: BASOPHILS % (AUTO) 1 % (0-10); EOSINOPHILS # (AUTO) 0.1 10^3/uL (0.0-0.3); EOSINOPHILS % (AUTO) 2 % (0-10); HEMATOCRIT 27 % (40-54); HEMOGLOBIN 8.1 g/dL (13.3-17.7); LYMPHOCYTES # (AUTO) 0.7 10^3/uL (1.0-4.0); LYMPHOCYTES % (AUTO) 31 % (12-44); MEAN CORPUSCULAR HEMOGLOBIN 32 pg (25-34); MEAN CORPUSCULAR HGB CONC 30 g/dL (32-36); MEAN CORPUSCULAR VOLUME 107 fL (80-99); MEAN PLATELET VOLUME 9.9 fL (9.0-12.2); MONOCYTES # (AUTO) 0.3 10^3/uL (0.0-1.0); MONOCYTES % (AUTO) 13 % (0-12); NEUTROPHILS # (AUTO) 1.1 10^3/uL (1.8-7.8); NEUTROPHILS % (AUTO) 51 % (42-75); PLATELET COUNT 185 10^3/uL (130-400); WHITE BLOOD COUNT 2.2 10^3/uL (4.3-11.0)
[2021-01-02 06:42] LABS: ALBUMIN 2.6 GM/DL (3.2-4.5)
[2021-01-02 06:44] LABS: TOTAL PROTEIN 4.6 GM/DL (6.4-8.2)
[2021-01-02 06:46] LABS: BILIRUBIN,TOTAL 0.3 MG/DL (0.1-1.0)
[2021-01-02 06:48] LABS: CALCIUM 5.2 MG/DL (8.5-10.1); CREATININE SERUM 1.88 MG/DL (0.60-1.30)
--- NOTE | 2021-01-02 08:15 | Occupational Ther Daily Note ---
OT Current Status-Daily Note Subjective Pt sleeping in bed, woke to name. Pt requires encouragement to participate in OT due to being sleepy. No c/o pain. Mental Status/Objective Patient Orientation: Person, Place, MR ADL-Treatment Pt requests to eat breakfast in bed. Pt able to complete own meal setup and use regular utensils to eat. Pt agrees to shower. Supine to EOB, independent with HOB elevated. Ambulated to bathroom using FWW. Sat in chair to complete undressing by self. Transferred into shower independently with grabbars and manpreet wer bench. Completed shower sitting on shower bench independently using hand held shower and grabbars. Pt transported clothing to shower using FWW. Pt completed dressing independently with minimal encouragement to complete donning socks by self. Pt stood at sink to complete oral care and grooming independently. After session, pt sitting in recliner with call light/phone in reach. All needs met in room. Therapy Code Descriptions/Definitions Functional [place] Measure: 0=Not Assessed/NA 4=Minimal Assistance 1=Total Assistance 5=Supervision or Setup 2=Maximal Assistance 6=Modified [place] 3=Moderate Assistance 7=Complete IndependenceSCALE: Activities may be completed with or without assistive devices. 9-Effkkgigzz-ndiuylr completes the activity by him/herself with no assistance from a helper. 5-Set-up or Clean-up Assistance-helper sets up or cleans up; patient completes activity. [place] assists only prior to or following the activity. 4-Supervision or Touching Assistance-helper provides verbal cues and/or touching/steadying and/or contact guard assistance as patient completes activity. Assistance may be provided throughout the activity or intermittently. 3-Partial/Moderate Assistance-helper does LESS THAN HALF the effort. [place] lifts, holds or supports trunk or limbs, but provides less than half the effort. 2-Substantial/Maximal Assistance-helper does MORE THAN HALF the effort. [place] l ifts or holds trunk or limbs and provides more than half the effort. 6-Jsyjsntcr-kereym does ALL the effort. Patient does none of the effort to complete the activity. Or, the assistance of 2 or more helpers is required for the patient to complete the activity. If activity was not attempted, code reason: 7-Patient Refused. 9-Not Applicable-not attempted and the patient did not perform the activity before the current illness, exacerbation or injury. 10-Not Attempted due to Environmental Limitations-(lack of equipment, weather restraints, etc.). 88-Not Attempted due to Medical Conditions or Safety Concerns. Eating (QC): 6 Oral Hygiene (QC): 6 Shower/Bathe Self (QC): 6 Upper Body Dressing (QC): 6 Lower Body Dressing (QC): 6 On/Off Footwear: 6 OT Short Term Goals Short Term Goals Time Frame: Jan 07, 2021 Oral hygiene: 5 Toileting hygiene: 5 Shower/bathe self: 5 Upper body dressin Lower body dressin OT Instrument Lens Generator Goals Instrument Lens Generator Goals Time Frame: Jan 16, 2021 Eating (QC): 6 (met) Oral Hygiene (QC): 6 (met) Toileting Hygiene (QC): 6 (met) Shower/Bathe Self (QC): 6 Upper Body Dressing (QC): 6 Lower Body Dressing (QC): 6 On/Off Footwear (QC): 6 Additional Goals: 1-Demonstrate ADL Tasks, 2-Verbalize Understanding, 3- ImproveStrength/Berta 1=Demonstrate adherence to instructed precautions during ADL tasks. 2=Patient will verbalize/demonstrate understanding of assistive devices/modifications for ADL. 3=Patient will improve strength/tolerance for activity to enable patient to perform ADL's. OT Education/Plan Problem List/Assessment Assessment: Decreased Activ Tolerance, Decreased Safety Aware, Impaired Cognition Discharge Recommendations Plan/Recommendations: Continue POC Treatment Plan/Plan of Care Patient would benefit from OT for education, treatment and training to promote independence in ADL's, mobility, safety and/or upper extremity function for ADL's. Plan of Care: ADL Retraining, Functional Mobility, Group Exercise/Act as Ind, UE Funct Exercise/Act Treatment Duration: Jan 16, 2021 Frequency: At least 5 of 7 days/Wk (IRF) Estimated Hrs Per Day: 1.5 hours per day Agreement: Yes Rehab Potential: Good Time/GCodes Start Time: 07:00 Stop Time: 08:15 Total Time Billed (hr/min): 75 Billed Treatment Time 1 visit-ADL 5 (75 min) DEJON PALM Jan 02, 2021 08:15
[2021-01-02] MEDS: PANTOPRAZOLE 40 MG (PROTONIX) TAB PO SCH ×2 (08:58→21:41)
[2021-01-02] MEDS: CALCITRIOL 0.25 MCG (ROCALTROL) CAPSULE PO SCH ×2 (08:58→21:41)
[2021-01-02] MEDS: SODIUM BICARBONATE 650 MG TABLET (NON-FORMULARY) PO SCH ×3 (08:59→21:41)
[2021-01-02] MEDS: VITAMIN D3 25 MCG (1,000 UNITS) TABLET PO SCH (08:59)
[2021-01-02] MEDS: ALLOPURINOL 100 MG (ZYLOPRIM) TAB PO SCH (08:59)
[2021-01-02] MEDS: LIPASE/AMYLASE/PROTEASE (PANCRELIPASE) 5,000 UNITS CAP PO SCH ×3 (08:59→16:57)
[2021-01-02] MEDS: CALCIUM CITRATE 950 MG PO SCH ×3 (09:02→16:57)
[2021-01-02] MEDS: TACROLIMUS 1 MG (PROGRAF) CAP NON-FORMULARY PO SCH ×2 (09:03→21:41)
[2021-01-02] MEDS: predniSONE 5 MG TAB PO SCH (09:03)
[2021-01-02] MEDS: KETOCONAZOLE 2% TP SCH ×2 (09:04→21:46)
[2021-01-02] MEDS: TERIPARATIDE 600 MCG/2.4 ML (FORTEO) SYR SQ SCH (09:11)
--- NOTE | 2021-01-02 11:16 | Speech Therapy Daily Note ---
Speech Daily Progress Note Subjective Date Seen by Provider: Jan 02, 2021 Time Seen by Provider: 00:30 Patient was playing on his hand held game, waiting on his medications when I entered his room. He was a little bit grumpy this morning but he got better as the session went on. Objective Patient continued to work on his 500 piece puzzle with min assist. Assessment Assessment Current Status: Good Progress Treatment Plan Continue Plan of Care Speech Short Term Goals Short Term Goals Short Term Goals 1) Patient will complete safety awareness tasks related to his daily needs with 80% or greater with minimal cuing. 2) Patient will complete cognitive tasks at his intellectual level with 80% or greater with minimal cuing. Speech Mcc Goals Tallier Goals Patient will improve his cognitive-communication skills in order to return to his prior level of function. Speech-Plan Patient/Family Goals Patient/Family Goals: Patient is scheduled to return home on January 06 where he lives with his brother and family. Treatment Plan Speech Therapy Treatment Plan: Continue Plan of Care Treatment Duration: Jan 09, 2021 Frequency: 4 times per week (Patient will receive skilled ST 4-5x per week) Estimated Hrs Per Day: .5 hour per day Rehab Potential: Good Barriers to Learning: Patient's recent critical illness/recovery, mild intellectually challenged Pt/Family Agrees to Plan: Yes Safety Risks/Education Teaching Recipient: Patient Teaching Methods: Demonstration, Discussion Response to Teaching: Verbalize Understanding, Return Demonstration Education Topics Provided: Continued safety within his room Time Speech Therapy Time In: 09:00 Speech Therapy Time Out: 09:30 Total Billed Time: 30 Billed Treatment Time 1, CHARAN Arango Jan 02, 2021 11:16
--- NOTE | 2021-01-02 13:01 | Physical Therapy Daily Note ---
PT Daily Note-Current Subjective Pt in chair upon arrival to room, agreeable to PT treatment at this time. During session, he requires multiple times of encouragement to complete task. Appearance Following session, pt up in chair with call light, tray and phone within reach. All needs met at this time. Mental Status Patient Orientation: Person Transfers SCALE: Activities may be completed with or without assistive devices. 6-Nnzexipjwj-njfvzin completes the activity by him/herself with no assistance from a helper. 5-Set-up or Clean-up Assistance-helper sets up or cleans up; patient completes activity. [place] assists only prior to or following the activity. 4-Supervision or Touching Assistance-helper provides verbal cues and/or touching/steadying and/or contact guard assistance as patient completes activity. Assistance may be provided throughout the activity or intermittently. 3-Partial/Moderate Assistance-helper does LESS THAN HALF the effort. [place] lifts, holds or supports trunk or limbs, but provides less than half the effort. 2-Substantial/Maximal Assistance-helper does MORE THAN HALF the effort. [place] lifts or holds trunk or limbs and provides more than half the effort. 7-Mqiprbezm-vxtjdf does ALL the effort. Patient does none of the effort to com plete the activity. Or, the assistance of 2 or more helpers is required for the patient to complete the activity. If activity was not attempted, code reason: 7-Patient Refused. 9-Not Applicable-not attempted and the patient did not perform the activity before the current illness, exacerbation or injury. 10-Not Attempted due to Environmental Limitations-(lack of equipment, weather restraints, etc.). 88-Not Attempted due to Medical Conditions or Safety Concerns. Sit to Stand (QC): 6 Chair/Plf-zh-Hyozl Xfer(QC): 6 Weight Bearing Right Lower Extremity: Right Full Weight Bearing Left Lower Extremity: Left Full Weight Bearing Gait Training Distance: 200'; 150' Walk 10 feet (QC): 6 Walk 50 ft with 2 Turns(QC): 6 Walk 150 ft (QC): 6 Gait Assistive Device: FWW Pt with narrow JAGDEEP, kyphotic posture throughout gait cycle Exercises Seated Therapy Exercises: Ankle pumps, Long arc quads, Hip flexion Seated Reps: 15 NuStep Minutes: 8 NuStep Workload: 4 Treatments Pt ambulated to and from gym with SBA. Pt completed NuStep and arm bike for 8' and 7'. Pt then ambulates in open area of floor before resting to complete puzzle while mopping in room dried. Pt then ambulates to return to room with reported fatigue. Assessment Current Status: Good Progress Pt requires multiple rounds of encouragement throughout session; seems to do better when given choices. PT Short Term Goals Short Term Goals Time Frame: Jan 05, 2021 Sit to lyin Lying to sitting on side of be: 5 Sit to stand: 4 Chair/yzo-an-zbuoa transfer: 4 Walk 150 feet: 4 4 steps: 4 PT Shelter Goals Sole Leather Cutting Machine Operator Goals PT Shelter Goals Time Frame: Jan 19, 2021 Roll Left & Right (QC): 6 Sit to Lying (QC): 6 Lying-Sitting on Side/Bed(QC): 6 Sit to Stand (QC): 6 Chair/Hln-or-Ptrzn Xfer(QC): 6 Toilet Transfer (QC): 6 Car Transfer (QC): 6 Does the Patient Walk: Yes Walk 10 feet (QC): 6 Walk 50ft with 2 Turns (QC): 6 Walk 150 ft (QC): 6 Walking 10ft on Uneven Surface: 6 1 Step (curb) (QC): 6 4 Steps (QC): 6 12 Steps (QC): 4 Picking up an Object (QC): 4 Does the Pt use WC or Scooter?: No Wheel 50 feet with 2 turns (QC: 9 Wheel 150 feet: 9 PT Plan Problem List Problem List: Activity Tolerance, Functional Strength, Safety, Balance, Gait, Transfer, Bed Mobility, ROM Treatment/Plan Treatment Plan: Continue Plan of Care Treatment Plan: Bed Mobility, Education, Functional Activity Berta, Functional Strength, Group Therapy, Gait, Safety, Therapeutic Exercise, Transfers Treatment Duration: Jan 19, 2021 Frequency: At least 5 of 7 days/Wk (IRF) Estimated Hrs Per Day: 1.5 hours per day (1 to 1. 5) Patient and/or Family Agrees t: Yes Time/GCodes Time In: 1000 Time Out: 1115 Total Billed Treatment Time: 75 Total Billed Treatment 1 visit EX x 2 (35') FA x 2 (25') GT (15') EVANS ALAN PT Jan 02, 2021 13:01
[2021-01-02 16:00] VITALS: BP 95/63
[2021-01-02 18:14] VITALS: BP 93/56
[2021-01-02 18:40] LABS: BASOPHILS % (AUTO) 1 % (0-10); EOSINOPHILS # (AUTO) 0.1 10^3/uL (0.0-0.3); EOSINOPHILS % (AUTO) 2 % (0-10); HEMATOCRIT 28 % (40-54); HEMOGLOBIN 8.4 g/dL (13.3-17.7); LYMPHOCYTES % (AUTO) 31 % (12-44); MEAN CORPUSCULAR HEMOGLOBIN 33 pg (25-34); MEAN CORPUSCULAR HGB CONC 30 g/dL (32-36); MEAN CORPUSCULAR VOLUME 107 fL (80-99); MEAN PLATELET VOLUME 10.1 fL (9.0-12.2); MONOCYTES # (AUTO) 0.5 10^3/uL (0.0-1.0); MONOCYTES % (AUTO) 15 % (0-12); NEUTROPHILS # (AUTO) 1.6 10^3/uL (1.8-7.8); NEUTROPHILS % (AUTO) 51 % (42-75); PLATELET COUNT 210 10^3/uL (130-400); WHITE BLOOD COUNT 3.1 10^3/uL (4.3-11.0)
[2021-01-02 18:53] LABS: POTASSIUM 5.3 MMOL/L (3.6-5.0)
--- NOTE | 2021-01-02 18:54 | Diagnostic Imaging Report ---
EXAMINATION: Chest 1 view. HISTORY: Fever. COMPARISON: None available. FINDINGS: Heart size is normal. There is prominent pulmonary vasculature. A right-sided portacatheter is present. There is blunting of the bilateral costophrenic angles with bibasilar atelectasis or consolidation. Mild interstitial opacity is seen within the upper lungs. No pneumothorax. The osseous structures are intact. IMPRESSION: 1. Likely bilateral pleural effusions with adjacent atelectasis or consolidation. 2. Mild interstitial opacities within the upper lungs which may represent atypical infection, edema or chronic background lung disease. Dictated by: Dictated on workstation # [id number]
[2021-01-02 18:58] LABS: CREATININE SERUM 1.98 MG/DL (0.60-1.30)
[2021-01-02 18:59] LABS: CALCIUM 5.5 MG/DL (8.5-10.1)
[2021-01-02 19:38] LABS: BILIRUBIN,URINE NEGATIVE (NEGATIVE); CLARITY,URINE CLEAR; COLOR,URINE YELLOW; GLUCOSE, URINE (UA) NEGATIVE (NEGATIVE); KETONES,URINE NEGATIVE (NEGATIVE); LEUKOCYTE ESTERASE ,URINE NEGATIVE (NEGATIVE); NITRITE,URINE NEGATIVE (NEGATIVE); PROTEIN,URINE 1+ (NEGATIVE)
[2021-01-02 19:45] LABS: BACTERIA,URINE TRACE /HPF
[2021-01-02 19:46] LABS: CALCIUM OXALATE CRYSTALS,UR RARE /LPF; HYALINE CASTS, URINE RARE /LPF
[2021-01-02] MEDS: NS IV 1000 ML 1,000 ML IV SCH (20:42)
[2021-01-02] MEDS: AZITHROMYCIN INJECTION 500 MG in NS (IVPB) 250 ML IV SCH (20:46)
[2021-01-03] MEDS: CEFEPIME INJECTION 1,000 MG in WATER (STERILE) FOR INJECTION 10 ML IV SCH ×4 (00:29→17:36)
[2021-01-03 05:41] VITALS: BP 99/69
[2021-01-03 05:47] LABS: BASOPHILS % (AUTO) 1 % (0-10); EOSINOPHILS # (AUTO) 0.1 10^3/uL (0.0-0.3); EOSINOPHILS % (AUTO) 2 % (0-10); HEMATOCRIT 25 % (40-54); HEMOGLOBIN 7.5 g/dL (13.3-17.7); LYMPHOCYTES # (AUTO) 0.9 10^3/uL (1.0-4.0); LYMPHOCYTES % (AUTO) 35 % (12-44); MEAN CORPUSCULAR HEMOGLOBIN 32 pg (25-34); MEAN CORPUSCULAR HGB CONC 30 g/dL (32-36); MEAN CORPUSCULAR VOLUME 107 fL (80-99); MONOCYTES # (AUTO) 0.4 10^3/uL (0.0-1.0); MONOCYTES % (AUTO) 13 % (0-12); NEUTROPHILS # (AUTO) 1.2 10^3/uL (1.8-7.8); NEUTROPHILS % (AUTO) 47 % (42-75); WHITE BLOOD COUNT 2.6 10^3/uL (4.3-11.0)
[2021-01-03 06:12] LABS: ATYPICAL LYMPHOCYTES 2 %; EOSINOPHILS % (MANUAL) 2 %; LYMPHOCYTES % (MANUAL) 39 %; MONOCYTES % (MANUAL) 10 %; NEUTROPHILS % (MANUAL) 47 %
[2021-01-03 06:13] LABS: ANISOCYTOSIS SLIGHT; HYPOCHROMASIA SLIGHT; MICROCYTOSIS SLIGHT; PLATELET COUNT 199 10^3/uL (130-400); POLYCHROMASIA SLIGHT
[2021-01-03 06:31] LABS: ALBUMIN 2.5 GM/DL (3.2-4.5)
[2021-01-03] MEDS: MULTIVIT W/MINERALS TAB (THERAGRAN M) PO SCH (06:32)
[2021-01-03] MEDS: NS IV 1000 ML 1,000 ML IV SCH ×2 (06:32→08:04)
[2021-01-03 06:34] LABS: TOTAL PROTEIN 4.5 GM/DL (6.4-8.2)
[2021-01-03 06:35] LABS: BILIRUBIN,TOTAL 0.3 MG/DL (0.1-1.0)
[2021-01-03 06:37] LABS: CREATININE SERUM 1.8 MG/DL (0.60-1.30)
[2021-01-03 06:38] LABS: CALCIUM 5.4 MG/DL (8.5-10.1)
[2021-01-03] MEDS: CALCITRIOL 0.25 MCG (ROCALTROL) CAPSULE PO SCH ×2 (08:00→20:49)
[2021-01-03] MEDS: ALLOPURINOL 100 MG (ZYLOPRIM) TAB PO SCH (08:00)
[2021-01-03] MEDS: SODIUM BICARBONATE 650 MG TABLET (NON-FORMULARY) PO SCH ×3 (08:00→20:49)
[2021-01-03] MEDS: VITAMIN D3 25 MCG (1,000 UNITS) TABLET PO SCH (08:01)
[2021-01-03] MEDS: LIPASE/AMYLASE/PROTEASE (PANCRELIPASE) 5,000 UNITS CAP PO SCH ×3 (08:01→17:14)
[2021-01-03] MEDS: PANTOPRAZOLE 40 MG (PROTONIX) TAB PO SCH ×2 (08:01→20:48)
[2021-01-03] MEDS: TACROLIMUS 1 MG (PROGRAF) CAP NON-FORMULARY PO SCH ×2 (08:02→20:49)
[2021-01-03] MEDS: predniSONE 5 MG TAB PO SCH (08:02)
[2021-01-03] MEDS: CALCIUM CITRATE 950 MG PO SCH ×3 (08:03→17:15)
[2021-01-03] MEDS: KETOCONAZOLE 2% TP SCH ×2 (08:03→20:49)
[2021-01-03] MEDS: AZITHROMYCIN INJECTION 500 MG in NS (IVPB) 250 ML IV SCH (08:08)
[2021-01-03] MEDS: TERIPARATIDE 600 MCG/2.4 ML (FORTEO) SYR SQ SCH (08:34)
--- NOTE | 2021-01-03 08:41 | PM&R Progress Note ---
Subjective HPI/CC On Admission Date Seen by Provider: Jan 03, 2021 Time Seen by Provider: 14:15 Subjective/Events-last exam 01/03/21: Patient was dx with PNA and placed on empiric abx IVF will be DC Patient feels better MRSA pending Low grade temp 01/02/21: Upset he can't go home today which was never the plan Rechecking him for progress next week as per our standard No pain reported except back Low calcium is a chronic issue and he is on max meds Eating a lot 01/01/21: Patient doing well Diarrhea still an issue Imodium given Creon helpful Back pain requiring Kpad 12/31/20: Pt doing really well Has a stage II decubitus ulcer on his coccyx Eats really well Denies any other significant pain Checked meds and labs 12/30/20: Pt doing very well Having loose bowels Working with PT Overall doing very well 12/29/20: Pt doing pretty well Spilled his urinal and got upset with himself WBC 2.5, Hgb 8.2 Checking iron level Creatinine 1.73 Albumin 2.5 and potassium 5.3 Goes by jeronimo Adames Review of Systems General: Fatigue, Malaise Pulmonary: Dyspnea Focused Exam Lactate Level 01/02/21 18:33: Lactic Acid Level 2.15*H 01/02/21 20:50: Lactic Acid Level 2.47*H 01/03/21 06:10: Lactic Acid Level 1.11 Lactic Acid Level Objective Exam Vital Signs Vital Signs Date Time Temp Pulse Resp B/P (MAP) Pulse Ox O2 Delivery O2 Flow Rate FiO2 01/03/21 16:17 37.1 103 16 107/70 (82) 99 01/03/21 09:05 Room Air Capillary Refill : General Appearance: No Apparent Distress, WD/WN, Anxious, Chronically ill, Thin, Other (pale, fatigued) HEENT: PERRL/EOMI, Normal ENT Inspection, Pharynx Normal Neck: Full Range of Motion, Normal Inspection, Non Tender, Supple, Carotid Bruit Respiratory: Chest Non Tender, Lungs Clear, Normal Breath Sounds, No Accessory Muscle Use, No Respiratory Distress Cardiovascular: Regular Rate, Rhythm, No Gallop, No JVD, No Murmur, Normal Peripheral Pulses Gastrointestinal: Normal Bowel Sounds, No Organomegaly, No Pulsatile Mass, Non Tender, Soft Back: Normal Inspection, No CVA Tenderness, No Vertebral Tenderness Extremity: Normal Capillary Refill, Normal Inspection, Normal Range of Motion, Non Tender, No Calf Tenderness, Pedal Edema Neurologic/Psychiatric: Alert, Oriented x3, Normal Mood/Affect, chicken cleaner II-XII Norm as Tested, Abnormal Gait, Disoriented, Motor Weakness (decreased extremities 4/5) Skin: Normal Color, Warm/Dry Lymphatic: No Adenopathy Results/Procedures Lab Laboratory Tests 01/03/21 05:30 Patient resulted labs reviewed. FIM Transfers Therapy Code Descriptions/Definitions Functional [place] Measure: 0=Not Assessed/NA 4=Minimal Assistance 1=Total Assistance 5=Supervision or Setup 2=Maximal Assistance 6=Modified [place] 3=Moderate Assistance 7=Complete IndependenceSCALE: Activities may be completed with or without assistive devices. 7-Krpqfxdokp-ngiebhs completes the activity by him/herself with no assistance from a helper. 5-Set-up or Clean-up Assistance-helper sets up or cleans up; patient completes activity. [place] assists only prior to or following the activity. 4-Supervision or Touching Assistance-helper provides verbal cues and/or touching/steadying and/or contact guard assistance as patient completes activity. Assistance may be provided throughout the activity or intermittently. 3-Partial/Moderate Assistance-helper does LESS THAN HALF the effort. [place] lifts, holds or supports trunk or limbs, but provides less than half the effort. 2-Substantial/Maximal Assistance-helper does MORE THAN HALF the effort. [place] lifts or holds trunk or limbs and provides more than half the effort. 3-Owlgnidbz-gqadoo does ALL the effort. Patient does none of the effort to complete the activity. Or, the assistance of 2 or more helpers is required for the patient to complete the activity. If activity was not attempted, code reason: 7-Patient Refused. 9-Not Applicable-not attempted and the patient did not perform the activity before the current illness, exacerbation or injury. 10-Not Attempted due to Environmental Limitations-(lack of equipment, weather restraints, etc.). 88-Not Attempted due to Medical Conditions or Safety Concerns. Roll Left to Right (QC): 6 Sit to Lying (QC): 6 Sit to Stand (QC): 6 Chair/Gso-ey-Fzohi Xfer(QC): 6 Car Transfer (QC): 6 Gait Training Does the Patient Walk?: Yes Distance: 200'; 150' Walk 10 feet (QC): 6 Walk 50 ft with 2 Turns(QC): 6 Walk 150 ft (QC): 6 Walking 10ft/uneven surface-QC: 3 (CGA) Gait Persons Needed: 1 Gait Assistive Device: FWW Wheelchair Training Does the Pt Use a Wheelchair?: No Wheel 50 ft with 2 turns (QC): 9 Wheel 150 ft (QC): 9 Stair Training 1 Step (curb) (QC): 3 (min assist as he steps up) 4 Steps (QC): 3 (min assist for balance and safety; used B handrails) 12 Steps (QC): 88 Balance Picking up an Object (QC): 88 ADL-Treatment Eating (QC): 6 Oral Hygiene (QC): 6 Bathing Location: L Arm, R Arm, L Upper Leg, R Upper Leg, L Lower Leg (including foot), R Lower Leg (including foot), Chest, Abdomen Shower/Bathe Self (QC): 6 Upper Body Dressing (QC): 6 Lower Body Dressing (QC): 6 On/Off Footwear (QC): 6 Toileting Hygiene (QC): 6 Toilet Transfer (QC): 6 Assessment/Plan Assessment and Plan Assess & Plan/Chief Complaint Assessment: Myopathy Intellectual disability Cachexia Seizure d/o 12/15/20 new onset Chronic diarrhea Anemia Hypocalcemia Metabolic acidosis Prednisone dependence Plan: IRF protocol Check labs Monitor pain Seizure precautions 12/29/20: Monitor closely Increase diet Monitor creat and hgb 12/30/20: Monitor hgb Fall risk 12/31/20: Monitor BP Improve dietary consumption 01/01/21: Monitor diarrhea Monitor for falls 01/02/21: Patient wants to go home soon Monitor for falls 01/03/21: IV abx Monitor closely Monitor fever (1) Myopathy (2) Seizure (3) Chronic diarrhea (4) Hypocalcemia (5) Renal transplant recipient (6) PKD (polycystic kidney disease) (7) Intellectual disability (8) Hypomagnesemia (9) Anemia (10) Buttock wound (11) Port-A-Cath in place (12) Cachexia (13) Vitamin D deficiency (14) Steroid dependence ORAL RIVERA DO Jan 03, 2021 08:41
--- NOTE | 2021-01-03 09:21 | Diagnostic Imaging Report ---
Clinical indications: Patient with fever. Followup exam. Exam: Portable chest x-ray upright view. Comparisons: Chest x-ray dated 01/02/2021. Findings: Stable cardiomegaly with appearance of slight progression of pulmonary vascular congestion. There is a small right pleural effusion which has developed in interim and development of bibasilar atelectasis and/or infiltrates (right side more than the left). Sjlohs-t-Acal is again seen overlying the right chest. The remainder of this exam shows no significant interval change compared to the prior study of comparison. There is no pneumothorax. IMPRESSION: 1: There is cardiomegaly and mild pulmonary vascular congestion which has progressed in the interim which can be seen with congestive heart failure. 2: There is development of a small right pleural effusion and bibasilar lung base atelectasis versus infiltrate (right side more than the left). Dictated by: Dictated on workstation # [id number]
[2021-01-03 09:43] VITALS: BP 111/70
--- NOTE | 2021-01-03 11:01 | Physical Therapy Daily Note ---
PT Daily Note-Current Subjective Pt sitting in recliner upon arrival w/ IV fluids running. Pt requests bathroom before gait training. Pain Numeric Pain Scale: 0-No Pain Location: No Pain Reported Mental Status Patient Orientation: Person, MR Attachments: Other-See Comments (chair alarm), IV Transfers SCALE: Activities may be completed with or without assistive devices. 6-Rjixgtsogn-yokijse completes the activity by him/herself with no assistance from a helper. 5-Set-up or Clean-up Assistance-helper sets up or cleans up; patient completes activity. [place] assists only prior to or following the activity. 4-Supervision or Touching Assistance-helper provides verbal cues and/or touching/steadying and/or contact guard assistance as patient completes activity. Assistance may be provided throughout the activity or intermittently. 3-Partial/Moderate Assistance-helper does LESS THAN HALF the effort. [place] lifts, holds or supports trunk or limbs, but provides less than half the effort. 2-Substantial/Maximal Assistance-helper does MORE THAN HALF the effort. [place] l ifts or holds trunk or limbs and provides more than half the effort. 4-Pkmzlqppw-ijrhcy does ALL the effort. Patient does none of the effort to complete the activity. Or, the assistance of 2 or more helpers is required for the patient to complete the activity. If activity was not attempted, code reason: 7-Patient Refused. 9-Not Applicable-not attempted and the patient did not perform the activity before the current illness, exacerbation or injury. 10-Not Attempted due to Environmental Limitations-(lack of equipment, weather restraints, etc.). 88-Not Attempted due to Medical Conditions or Safety Concerns. Sit to Stand (QC): 4 Toilet Transfer (QC): 4 Weight Bearing Right Lower Extremity: Right Full Weight Bearing Left Lower Extremity: Left Full Weight Bearing Gait Training Does the Patient Walk?: Yes Distance: 200' Walk 10 feet (QC): 4 Walk 150 ft (QC): 4 Gait Persons Needed: 1 Gait Assistive Device: FWW During ambulation, WAXER FLOOR observes slight scissoring gait pattern x4. Treatments Pt completes all transfers using FWW w/ CGA. Pt doffs/dons LE clothing unsupported and completes toileting w/ supervision. Pt ambulates 200' this date using FWW w/ CGA and IV pole following. Pt returns to recliner in room, has call light and bedside table w/in reach and all needs met at end of tx. Assessment Current Status: Good Progress Pt doing well and completes all tasks w/ supervision. PT Short Term Goals Short Term Goals Time Frame: Jan 05, 2021 Sit to lyin Lying to sitting on side of be: 5 Sit to stand: 4 Chair/iuw-zx-tnclf transfer: 4 Walk 150 feet: 4 4 steps: 4 PT Inspector Fibrous Wallboard Goals Detention Goals PT Inspector Fibrous Wallboard Goals Time Frame: Jan 19, 2021 Roll Left & Right (QC): 6 Sit to Lying (QC): 6 Lying-Sitting on Side/Bed(QC): 6 Sit to Stand (QC): 6 Chair/Ima-dt-Zszgt Xfer(QC): 6 Toilet Transfer (QC): 6 Car Transfer (QC): 6 Does the Patient Walk: Yes Walk 10 feet (QC): 6 Walk 50ft with 2 Turns (QC): 6 Walk 150 ft (QC): 6 Walking 10ft on Uneven Surface: 6 1 Step (curb) (QC): 6 4 Steps (QC): 6 12 Steps (QC): 4 Picking up an Object (QC): 4 Does the Pt use WC or Scooter?: No Wheel 50 feet with 2 turns (QC: 9 Wheel 150 feet: 9 PT Plan Problem List Problem List: Activity Tolerance, Functional Strength, Safety, Balance, Gait, Transfer, Bed Mobility, ROM Treatment/Plan Treatment Plan: Continue Plan of Care Treatment Plan: Bed Mobility, Education, Functional Activity Berta, Functional Strength, Group Therapy, Gait, Safety, Therapeutic Exercise, Transfers Treatment Duration: Jan 19, 2021 Frequency: At least 5 of 7 days/Wk (IRF) Estimated Hrs Per Day: 1.5 hours per day (1 to 1. 5) Patient and/or Family Agrees t: Yes Safety Risks/Education Patient Education: Gait Training, Safety Issues Teaching Recipient: Patient Teaching Methods: Discussion Response to Teaching: Verbalize Understanding Time/GCodes Time In: 951 Time Out: 1015 Total Billed Treatment Time: 23 Total Billed Treatment 1, GT x1(15m), FA x1 (8m) LANDON IVERSON WAXER FLOOR Jan 03, 2021 11:01
[2021-01-03 16:17] VITALS: BP 107/70
[2021-01-04] MEDS: CEFEPIME INJECTION 1,000 MG in WATER (STERILE) FOR INJECTION 10 ML IV SCH ×4 (00:46→21:35)
[2021-01-04 05:11] VITALS: BP 104/74
[2021-01-04] MEDS: MULTIVIT W/MINERALS TAB (THERAGRAN M) PO SCH (06:15)
--- NOTE | 2021-01-04 07:20 | PM&R Progress Note ---
Subjective HPI/CC On Admission Date Seen by Provider: Jan 04, 2021 Time Seen by Provider: 13:30 Subjective/Events-last exam 01/04/21: Patient doing well Family here today visiting [place] making him tremor a bit Abx maintained Broad spectrum abx given BCx from port Staph epi so s/p r epeat BCx and place on Zyvox May need transfusion tomorrow 01/03/21: Patient was dx with PNA and placed on empiric abx IVF will be DC Patient feels better MRSA pending Low grade temp 01/02/21: Upset he can't go home today which was never the plan Rechecking him for progress next week as per our standard No pain reported except back Low calcium is a chronic issue and he is on max meds Eating a lot 01/01/21: Patient doing well Diarrhea still an issue Imodium given Creon helpful Back pain requiring Kpad 12/31/20: Pt doing really well Has a stage II decubitus ulcer on his coccyx Eats really well Denies any other significant pain Checked meds and labs 12/30/20: Pt doing very well Having loose bowels Working with PT Overall doing very well 12/29/20: Pt doing pretty well Spilled his urinal and got upset with himself WBC 2.5, Hgb 8.2 Checking iron level Creatinine 1.73 Albumin 2.5 and potassium 5.3 Goes by jeronimo Adames Review of Systems General: Fatigue, Malaise Pulmonary: Cough Musculoskeletal: back pain Focused Exam Lactate Level 01/02/21 18:33: Lactic Acid Level 2.15*H 01/02/21 20:50: Lactic Acid Level 2.47*H 01/03/21 06:10: Lactic Acid Level 1.11 Objective Exam Vital Signs Vital Signs Date Time Temp Pulse Resp B/P (MAP) Pulse Ox O2 Delivery O2 Flow Rate FiO2 01/04/21 17:12 37.6 102 18 108/78 (88) 98 Room Air Capillary Refill : General Appearance: No Apparent Distress, WD/WN, Anxious, Chronically ill, Thin, Other (pale, fatigued) HEENT: PERRL/EOMI, Normal ENT Inspection, Pharynx Normal Neck: Full Range of Motion, Normal Inspection, Non Tender, Supple, Carotid Bruit Respiratory: Chest Non Tender, Lungs Clear, Normal Breath Sounds, No Accessory Muscle Use, No Respiratory Distress Cardiovascular: Regular Rate, Rhythm, No Gallop, No JVD, No Murmur, Normal Peripheral Pulses Gastrointestinal: Normal Bowel Sounds, No Organomegaly, No Pulsatile Mass, Non Tender, Soft Back: Normal Inspection, No CVA Tenderness, No Vertebral Tenderness Extremity: Normal Capillary Refill, Normal Inspection, Normal Range of Motion, Non Tender, No Calf Tenderness, Pedal Edema Neurologic/Psychiatric: Alert, Oriented x3, Normal Mood/Affect, silk screen printer II-XII Norm as Tested, Abnormal Gait, Disoriented, Motor Weakness (decreased extremities 4/5) Skin: Normal Color, Warm/Dry Lymphatic: No Adenopathy Results/Procedures Lab Patient resulted labs reviewed. FIM Transfers Therapy Code Descriptions/Definitions Functional [place] Measure: 0=Not Assessed/NA 4=Minimal Assistance 1=Total Assistance 5=Supervision or Setup 2=Maximal Assistance 6=Modified [place] 3=Moderate Assistance 7=Complete IndependenceSCALE: Activities may be completed with or without assistive devices. 2-Jnwfctzzpv-xqsvjwy completes the activity by him/herself with no assistance from a helper. 5-Set-up or Clean-up Assistance-helper sets up or cleans up; patient completes activity. [place] assists only prior to or following the activity. 4-Supervision or Touching Assistance-helper provides verbal cues and/or touching/steadying and/or contact guard assistance as patient completes activity. Assistance may be provided throughout the activity or intermittently. 3-Partial/Moderate Assistance-helper does LESS THAN HALF the effort. [place] lifts, holds or supports trunk or limbs, but provides less than half the effort. 2-Substantial/Maximal Assistance-helper does MORE THAN HALF the effort. [place] l ifts or holds trunk or limbs and provides more than half the effort. 9-Oxtshxmyk-rjbkuq does ALL the effort. Patient does none of the effort to complete the activity. Or, the assistance of 2 or more helpers is required for the patient to complete the activity. If activity was not attempted, code reason: 7-Patient Refused. 9-Not Applicable-not attempted and the patient did not perform the activity before the current illness, exacerbation or injury. 10-Not Attempted due to Environmental Limitations-(lack of equipment, weather restraints, etc.). 88-Not Attempted due to Medical Conditions or Safety Concerns. Roll Left to Right (QC): 6 Sit to Lying (QC): 6 Sit to Stand (QC): 4 Chair/Ozw-jc-Qhgtr Xfer(QC): 6 Car Transfer (QC): 6 Gait Training Does the Patient Walk?: Yes Distance: 200' Walk 10 feet (QC): 4 Walk 50 ft with 2 Turns(QC): 6 Walk 150 ft (QC): 4 Walking 10ft/uneven surface-QC: 3 (CGA) Gait Persons Needed: 1 Gait Assistive Device: FWW Wheelchair Training Does the Pt Use a Wheelchair?: No Wheel 50 ft with 2 turns (QC): 9 Wheel 150 ft (QC): 9 Stair Training 1 Step (curb) (QC): 3 (min assist as he steps up) 4 Steps (QC): 3 (min assist for balance and safety; used B handrails) 12 Steps (QC): 88 Balance Picking up an Object (QC): 88 ADL-Treatment Eating (QC): 6 Oral Hygiene (QC): 6 Bathing Location: L Arm, R Arm, L Upper Leg, R Upper Leg, L Lower Leg (including foot), R Lower Leg (including foot), Chest, Abdomen Shower/Bathe Self (QC): 6 Upper Body Dressing (QC): 6 Lower Body Dressing (QC): 6 On/Off Footwear (QC): 6 Toileting Hygiene (QC): 6 Toilet Transfer (QC): 6 Assessment/Plan Assessment and Plan Assess & Plan/Chief Complaint Assessment: Myopathy Acute PNA 01/02/21 Intellectual disability Cachexia Seizure d/o 12/15/20 new onset Chronic diarrhea Anemia Hypocalcemia Metabolic acidosis Prednisone dependence Staph epi from Bcx taken from port s/p repeat BCx and placed on Zyvox empirically Plan: IRF protocol Check labs Monitor pain Seizure precautions 12/29/20: Monitor closely Increase diet Monitor creat and hgb 12/30/20: Monitor hgb Fall risk 12/31/20: Monitor BP Improve dietary consumption 01/01/21: Monitor diarrhea Monitor for falls 01/02/21: Patient wants to go home soon Monitor for falls 01/03/21: IV abx Monitor closely Monitor fever 01/04/21: Zyvox for bacteremia s/p BCx repeat Broad spectrum abx May need transfusion tomorrow (1) Myopathy (2) Seizure (3) Chronic diarrhea (4) Hypocalcemia (5) Renal transplant recipient (6) PKD (polycystic kidney disease) (7) Intellectual disability (8) Hypomagnesemia (9) Anemia (10) Buttock wound (11) Port-A-Cath in place (12) Cachexia (13) Vitamin D deficiency (14) Steroid dependence ORAL RIVERA DO Jan 04, 2021 07:19
[2021-01-04] MEDS: CALCITRIOL 0.25 MCG (ROCALTROL) CAPSULE PO SCH ×2 (08:19→21:32)
[2021-01-04] MEDS: SODIUM BICARBONATE 650 MG TABLET (NON-FORMULARY) PO SCH ×3 (08:19→21:32)
[2021-01-04] MEDS: VITAMIN D3 25 MCG (1,000 UNITS) TABLET PO SCH (08:19)
[2021-01-04] MEDS: LIPASE/AMYLASE/PROTEASE (PANCRELIPASE) 5,000 UNITS CAP PO SCH ×3 (08:19→16:44)
[2021-01-04] MEDS: ALLOPURINOL 100 MG (ZYLOPRIM) TAB PO SCH (08:20)
[2021-01-04] MEDS: PANTOPRAZOLE 40 MG (PROTONIX) TAB PO SCH ×2 (08:20→21:32)
[2021-01-04] MEDS: predniSONE 5 MG TAB PO SCH (08:21)
[2021-01-04] MEDS: KETOCONAZOLE 2% TP SCH ×2 (08:21→21:34)
[2021-01-04] MEDS: TACROLIMUS 1 MG (PROGRAF) CAP NON-FORMULARY PO SCH ×2 (08:22→21:34)
[2021-01-04] MEDS: CALCIUM CITRATE 950 MG PO SCH ×3 (08:22→16:44)
[2021-01-04] MEDS: AZITHROMYCIN INJECTION 500 MG in NS (IVPB) 250 ML IV SCH (08:23)
[2021-01-04] MEDS: TERIPARATIDE 600 MCG/2.4 ML (FORTEO) SYR SQ SCH (08:28)
[2021-01-04] MEDS: LINEZOLID IVPB 300 ML IV SCH ×2 (10:15→21:35)
[2021-01-04 11:05] VITALS: BP 115/66
[2021-01-04] MEDS: ACETAMINOPHEN 325 MG TABLET PO PRN (15:00)
--- NOTE | 2021-01-04 15:17 | Consultation-Cardiology ---
HPI-Cardiology Cardiology Consultation: Date of Consultation 01/04/21 Date of Admission Attending Physician Loan Gonzalez DO Admitting Physician [place],Local Physician Consulting Physician Devan HADLEY MD HPI: Time Seen by a Provider: 14:00 Chief Complaint: possible CHF 45 year old male with multiple medical problems. currently diagnosed with pneumonia with low grade temp. on antibiotics. cxr - ? pneumonia. Review of Systems-Cardiology Review of Systems Constitutional: As described under HPI; No As described under HPI, No no symptoms reported, No chills, No fever, No lightheadedness Eyes: No As described under HPI, No no symptoms reported, No blindness, No blurred vision, No contact lenses, No drainage, No decreased acuity, No foreign body sensation, No pain, No vision change Ears/Nose/Throat: No As described under HPI, No no symptoms reported, No chronic hearing loss, No ear discharge, No ear pain, No nasal drainage, No ulcerations Respiratory: No no symptoms reported; As described under HPI; No As described under HPI, No cough, No orthopnea, No shortness of breath, No SOB with excertion Cardiovascular: No no symptoms reported; As described under HPI; No As described under HPI, No chest pain, No edema, No irregular heart rate, No lightheadedness, No palpitations Gastrointestinal: No no symptoms reported, No As described under HPI, No abdomen distended, No abdominal pain, No blood streaked bowels, No constipation, No diarrhea, No nausea, No vomiting, No stool coloration changes Genitourinary: No As described under HPI, No burning, No dysuria, No discharge, No frequency, No flank pain, No hematuria, No urgency Skin: No rash, No skin related problems, No ulcerations Psychiatric/Neurological: No anxiety, No depression, No seizure, No focal weakness, No syncope Hematologic: No bleeding abnormalities All Other Systems Reviewed Negative Unless Noted: Yes ORT-Afzrgf-Ymcqco Hx Patient Social History Marrital Status: single Employed/Student: unemployed Smoking Status: Never a Smoker Have you traveled recently?: No Alcohol Use?: Yes Pt feels they are or have been: No Past Medical History PMH As described under Assessment. Allergies and Home Medications Allergies Coded Allergies: No Known Allergies (Verified Allergy, Unknown, 12/28/20) Home Medications Allopurinol 100 Mg Tablet, 50 MG PO DAILY Prescribed by: ANDI DE LA TORRE on 12/28/20 1319 Calcitriol 0.5 Mcg Capsule, 0.5 MCG PO 2 CAPSULES PO BID Prescribed by: ANDI DE LA TORRE on 12/28/20 1322 Calcium Citrate 200 Mg Tablet, 950 MG PO 4 TABLETS PO W MEALS Prescribed by: ANDI DE LA TORRE on 12/28/20 1324 Cholecalciferol (Vitamin D3) 50 Mcg Capsule, 50 MCG PO DAILY Prescribed by: ANDI DE LA TORRE on 12/28/20 1327 Epoetin Tiago-Epbx 10,000 Unit/1 Ml Vial, 10,000 UNIT IJ HJEIYS-CSEXDHAQU-HOV Prescribed by: ANDI DE LA TORRE on 12/28/20 1351 Ketoconazole 15 Gm Cream..g., 15 GM TP BID TO FACE UNTIL R Prescribed by: ANDI DE LA TORRE on 12/28/20 1331 Ketoconazole 120 Ml Shampoo, 120 ML TP HS APPLY TOPICALLY TO CHEST & BACK ON DAMP SKIN, LATHER, LEAVE ON 5 MINUTES, & RINSE Prescribed by: ANDI DE LA TORRE on 12/28/20 1337 Levetiracetam 500 Mg Tablet, 500 MG PO BID Prescribed by: ANDI DE LA TORRE on 12/28/20 1313 Lipase/Amylase/Protease 1 Ea Cap, 1 EA PO TIDWM 6,000-19,000-30,000 UNITS. TAKE 1 CAPSULE PO TID W MEALS Prescribed by: ANDI DE LA TORRE on 12/28/20 1403 Petrolatum,White/Lanolin 113 Gm Oint...g., 113 GM TP PRN Prescribed by: ANDI DE LA TORRE on 12/28/20 1318 Prednisone 5 Mg Tablet, 5 MG PO DAILY Prescribed by: ANDI DE LA TORRE on 12/28/20 1342 Sodium Bicarbonate 650 Mg Tablet, 650 MG PO TID Prescribed by: ANDI DE LA TORRE on 12/28/20 1318 Tacrolimus 1 Mg Capsule, 3 MG PO BID Prescribed by: ANDI DE LA TORRE on 12/28/20 1345 Teriparatide 600 Mcg/2.4 Ml Syr, 20 MCG SQ DAILY Prescribed by: MARTINEZ RUBI on 12/28/20 1629 [Mvi] , 1 TAB PO DAILY Prescribed by: ANDI DE LA TORRE on 12/28/20 1406 [Protonix Dr] 40 TAB, 1 PO BID Prescribed by: ANDI DE LA TORRE on 12/28/20 1341 Patient Home Medication List Home Medication List Reviewed: Yes Physical Exam-Cardiology Physical Exam Vital Signs/I&O 01/04/21 01/04/21 01/04/21 09:59 11:05 17:12 Temp 37.2 37.6 Pulse 98 102 Resp 18 18 B/P (MAP) 115/66 (82) 108/78 (88) Pulse Ox 98 98 O2 Delivery Room Air Room Air Room Air 01/04/21 00:00 Intake Total 1824 ml Output Total 550 ml Balance 1274 ml Capillary Refill : Constitutional: appears stated age; No apparent distress; well-developed, well- nourished HEENT: PERRL; No discharge; hearing is well preserved, oral hygience is good; No ulceration, No xanthelasmas are seen Neck: No carotid bruit; carotid pulses are 2 + bilaterally Respiratory: chest is bilaterally symmetric, lungs clear to auscultation Cardiovascular: regular rate-rhythm, S1 and S2 Gastrointestinal: soft, audible bowel sounds; No spleenomegaly Rectal: deferred Extremities: No clubbing, No cyanosis; no lower extremity edema bilateral; No significant edema Neurologic/Psychiatric: no motor/sensory deficits, alert, normal mood/affect, oriented x 3, power is 5/5 both on sides Skin: normal color; No rash, No ulcerations Data Review Labs Microbiology 01/03/21 MRSA Screen - Final, Complete MRSA not isolated 01/02/21 Blood Culture - Preliminary, Resulted No growth A/P-Cardiology Assessment/Admission Diagnosis Pneumonia, CKD, no significant CHF Plan No CHF on examination. Echo shows normal LVEF. Mildly elevated BNP - which could be secondary to CKD. Continue current therapy. Thank you for your consultation. Please call me if you have any questions. Carlos A Hadley MD, FACP, FACC, FSCAI, FHRS, CCDS Interventional Cardiology Cardiac Electrophysiology Vascular Medicine and Endovascular Interventions Devan HADLEY MD Jan 04, 2021 15:17
[2021-01-04 17:12] VITALS: BP 108/78
[2021-01-04] MEDS: MELATONIN 3 MG TABLET PO PRN (21:32)
[2021-01-05] MEDS: MULTIVIT W/MINERALS TAB (THERAGRAN M) PO SCH (06:05)
[2021-01-05] MEDS: CEFEPIME INJECTION 1,000 MG in WATER (STERILE) FOR INJECTION 10 ML IV SCH ×3 (06:07→21:33)
[2021-01-05 06:10] VITALS: BP 114/75
[2021-01-05 06:44] LABS: BASOPHILS % (AUTO) 1 % (0-10); EOSINOPHILS # (AUTO) 0.1 10^3/uL (0.0-0.3); EOSINOPHILS % (AUTO) 2 % (0-10); HEMATOCRIT 26 % (40-54); HEMOGLOBIN 7.9 g/dL (13.3-17.7); LYMPHOCYTES # (AUTO) 0.9 10^3/uL (1.0-4.0); LYMPHOCYTES % (AUTO) 23 % (12-44); MEAN CORPUSCULAR HEMOGLOBIN 32 pg (25-34); MEAN CORPUSCULAR HGB CONC 30 g/dL (32-36); MEAN CORPUSCULAR VOLUME 108 fL (80-99); MEAN PLATELET VOLUME 10.5 fL (9.0-12.2); MONOCYTES # (AUTO) 0.5 10^3/uL (0.0-1.0); MONOCYTES % (AUTO) 11 % (0-12); NEUTROPHILS # (AUTO) 2.4 10^3/uL (1.8-7.8); NEUTROPHILS % (AUTO) 61 % (42-75); PLATELET COUNT 257 10^3/uL (130-400)
[2021-01-05 07:21] LABS: ALBUMIN 2.5 GM/DL (3.2-4.5); BILIRUBIN,TOTAL 0.3 MG/DL (0.1-1.0); CREATININE SERUM 1.75 MG/DL (0.60-1.30); POTASSIUM 5.9 MMOL/L (3.6-5.0); TOTAL PROTEIN 4.7 GM/DL (6.4-8.2)
[2021-01-05 07:28] LABS: CALCIUM 5.1 MG/DL (8.5-10.1)
[2021-01-05] MEDS: LIPASE/AMYLASE/PROTEASE (PANCRELIPASE) 5,000 UNITS CAP PO SCH ×3 (08:10→18:11)
[2021-01-05] MEDS: LINEZOLID IVPB 300 ML IV SCH (08:10)
[2021-01-05] MEDS: CALCITRIOL 0.25 MCG (ROCALTROL) CAPSULE PO SCH ×2 (08:12→21:32)
[2021-01-05] MEDS: PANTOPRAZOLE 40 MG (PROTONIX) TAB PO SCH ×2 (08:12→21:32)
[2021-01-05] MEDS: ACETAMINOPHEN 325 MG TABLET PO PRN ×2 (08:14→21:33)
[2021-01-05] MEDS: ALLOPURINOL 100 MG (ZYLOPRIM) TAB PO SCH (08:15)
[2021-01-05] MEDS: LOPERAMIDE 2 MG (IMODIUM) TABLET PO PRN (08:15)
[2021-01-05] MEDS: VITAMIN D3 25 MCG (1,000 UNITS) TABLET PO SCH (08:15)
[2021-01-05] MEDS: SODIUM BICARBONATE 650 MG TABLET (NON-FORMULARY) PO SCH ×3 (08:16→21:32)
[2021-01-05] MEDS: predniSONE 5 MG TAB PO SCH (08:17)
[2021-01-05] MEDS: CALCIUM CITRATE 950 MG PO SCH ×3 (08:18→18:12)
[2021-01-05] MEDS: AZITHROMYCIN INJECTION 500 MG in NS (IVPB) 250 ML IV SCH (08:18)
[2021-01-05] MEDS: TACROLIMUS 1 MG (PROGRAF) CAP NON-FORMULARY PO SCH ×2 (08:19→21:32)
[2021-01-05] MEDS: TERIPARATIDE 600 MCG/2.4 ML (FORTEO) SYR SQ SCH (08:20)
[2021-01-05] MEDS: KETOCONAZOLE 2% TP SCH ×2 (08:26→21:33)
--- NOTE | 2021-01-05 08:42 | PM&R Progress Note ---
Subjective HPI/CC On Admission Date Seen by Provider: Jan 05, 2021 Time Seen by Provider: 10:30 Subjective/Events-last exam 01/05/21: Pt doing pretty well Imodium given for loose stools Will discharge tomorrow WBC 4.0, Hgb 7.9, Creatinine 1.75, calcium low chronically at 5.1 No pain is reported 01/04/21: Patient doing well Family here today visiting [place] making him tremor a bit Abx maintained Broad spectrum abx given BCx from port Staph epi so s/p r epeat BCx and place on Zyvox May need transfusion tomorrow 01/03/21: Patient was dx with PNA and placed on empiric abx IVF will be DC Patient feels better MRSA pending Low grade temp 01/02/21: Upset he can't go home today which was never the plan Rechecking him for progress next week as per our standard No pain reported except back Low calcium is a chronic issue and he is on max meds Eating a lot 01/01/21: Patient doing well Diarrhea still an issue Imodium given Creon helpful Back pain requiring Kpad 12/31/20: Pt doing really well Has a stage II decubitus ulcer on his coccyx Eats really well Denies any other significant pain Checked meds and labs 12/30/20: Pt doing very well Having loose bowels Working with PT Overall doing very well 12/29/20: Pt doing pretty well Spilled his urinal and got upset with himself WBC 2.5, Hgb 8.2 Checking iron level Creatinine 1.73 Albumin 2.5 and potassium 5.3 Goes by jeronimo Adaems Review of Systems General: Fatigue, Malaise Focused Exam Lactate Level 01/03/21 06:10: Lactic Acid Level 1.11 Objective Exam Vital Signs Vital Signs Date Time Temp Pulse Resp B/P (MAP) Pulse Ox O2 Delivery O2 Flow Rate FiO2 01/05/21 21:00 98 Room Air 01/05/21 17:45 37.7 111 18 123/76 (92) Capillary Refill : General Appearance: No Apparent Distress, WD/WN, Anxious, Chronically ill, Thin, Other (pale, fatigued) HEENT: PERRL/EOMI, Normal ENT Inspection, Pharynx Normal Neck: Full Range of Motion, Normal Inspection, Non Tender, Supple, Carotid Bruit Respiratory: Chest Non Tender, Lungs Clear, Normal Breath Sounds, No Accessory Muscle Use, No Respiratory Distress Cardiovascular: Regular Rate, Rhythm, No Gallop, No JVD, No Murmur, Normal Peripheral Pulses Gastrointestinal: Normal Bowel Sounds, No Organomegaly, No Pulsatile Mass, Non Tender, Soft Back: Normal Inspection, No CVA Tenderness, No Vertebral Tenderness Extremity: Normal Capillary Refill, Normal Inspection, Normal Range of Motion, Non Tender, No Calf Tenderness, Pedal Edema Neurologic/Psychiatric: Alert, Oriented x3, Normal Mood/Affect, pamphlet distributor II-XII Norm as Tested, Abnormal Gait, Disoriented, Motor Weakness (decreased extremities 4/5) Skin: Normal Color, Warm/Dry Lymphatic: No Adenopathy Results/Procedures Lab Laboratory Tests 01/05/21 06:10 Patient resulted labs reviewed. FIM Transfers Therapy Code Descriptions/Definitions Functional [place] Measure: 0=Not Assessed/NA 4=Minimal Assistance 1=Total Assistance 5=Supervision or Setup 2=Maximal Assistance 6=Modified [place] 3=Moderate Assistance 7=Complete IndependenceSCALE: Activities may be completed with or without assistive devices. 2-Rmzsgpqlcg-bhmryux completes the activity by him/herself with no assistance from a helper. 5-Set-up or Clean-up Assistance-helper sets up or cleans up; patient completes activity. [place] assists only prior to or following the activity. 4-Supervision or Touching Assistance-helper provides verbal cues and/or touching/steadying and/or contact guard assistance as patient completes activity . Assistance may be provided throughout the activity or intermittently. 3-Partial/Moderate Assistance-helper does LESS THAN HALF the effort. [place] lifts, holds or supports trunk or limbs, but provides less than half the effort. 2-Substantial/Maximal Assistance-helper does MORE THAN HALF the effort. [place] lifts or holds trunk or limbs and provides more than half the effort. 3-Tiufetlja-hhrsrj does ALL the effort. Patient does none of the effort to complete the activity. Or, the assistance of 2 or more helpers is required for the patient to complete the activity. If activity was not attempted, code reason: 7-Patient Refused. 9-Not Applicable-not attempted and the patient did not perform the activity before the current illness, exacerbation or injury. 10-Not Attempted due to Environmental Limitations-(lack of equipment, weather restraints, etc.). 88-Not Attempted due to Medical Conditions or Safety Concerns. Roll Left to Right (QC): 6 Sit to Lying (QC): 6 Sit to Stand (QC): 4 Chair/Apm-tf-Pfead Xfer(QC): 6 Car Transfer (QC): 6 Gait Training Does the Patient Walk?: Yes Distance: 200' Walk 10 feet (QC): 4 Walk 50 ft with 2 Turns(QC): 6 Walk 150 ft (QC): 4 Walking 10ft/uneven surface-QC: 3 (CGA) Gait Persons Needed: 1 Gait Assistive Device: FWW Wheelchair Training Does the Pt Use a Wheelchair?: No Wheel 50 ft with 2 turns (QC): 9 Wheel 150 ft (QC): 9 Stair Training 1 Step (curb) (QC): 3 (min assist as he steps up) 4 Steps (QC): 3 (min assist for balance and safety; used B handrails) 12 Steps (QC): 88 Balance Picking up an Object (QC): 88 ADL-Treatment Eating (QC): 6 Oral Hygiene (QC): 6 Bathing Location: L Arm, R Arm, L Upper Leg, R Upper Leg, L Lower Leg (including foot), R Lower Leg (including foot), Chest, Abdomen Shower/Bathe Self (QC): 6 Upper Body Dressing (QC): 6 Lower Body Dressing (QC): 6 On/Off Footwear (QC): 6 Toileting Hygiene (QC): 6 Toilet Transfer (QC): 6 Assessment/Plan Assessment and Plan Assess & Plan/Chief Complaint Assessment: Myopathy Acute PNA 01/02/21 Intellectual disability Cachexia Seizure d/o 12/15/20 new onset Chronic diarrhea Anemia Hypocalcemia Metabolic acidosis Prednisone dependence Staph epi from Bcx taken from port s/p repeat BCx and placed on Zyvox empirically Plan: IRF protocol Check labs Monitor pain Seizure precautions 12/29/20: Monitor closely Increase diet Monitor creat and hgb 12/30/20: Monitor hgb Fall risk 12/31/20: Monitor BP Improve dietary consumption 01/01/21: Monitor diarrhea Monitor for falls 01/02/21: Patient wants to go home soon Monitor for falls 01/03/21: IV abx Monitor closely Monitor fever 01/04/21: Zyvox for bacteremia s/p BCx repeat Broad spectrum abx May need transfusion tomorrow 01/05/21: DC tomorrow Abx selected Repeat BCx negative 01/04/21 (1) Myopathy (2) Seizure (3) Chronic diarrhea (4) Hypocalcemia (5) Renal transplant recipient (6) PKD (polycystic kidney disease) (7) Intellectual disability (8) Hypomagnesemia (9) Anemia (10) Buttock wound (11) Port-A-Cath in place (12) Cachexia (13) Vitamin D deficiency (14) Steroid dependence ORAL RIVERA DO Jan 05, 2021 08:42
--- NOTE | 2021-01-05 08:45 | Occupational Ther Daily Note ---
OT Current Status-Daily Note Subjective Pt 'napping' in bed (per pt statement). Pt had difficulty with waking today and required encouragement to participate in therapy. Pt did agree to therapy. No c/o pain. Reported to nrsg that pt needed an Alevyn on buttocks due to skin breakdown, previous one was soiled with BM. Mental Status/Objective Patient Orientation: Person, Place, MR Attachments: Central Line ADL-Treatment Pt able to set up own meal and use regular utensils to eat. Pt requires motivation to complete tasks by self, reminders that pt has a schedule at home that he is used to completing and that he is able to complete ADLs by self. Pt requested to use toilet. Independent with supine <--> EOB and ambulating to bathroom using FWW. Independent with transfer to toilet and completing toileting hygiene and clothing manipulation. Pt tends to hurry through tasks, reminders to thoroughly clean self is needed at times. Independent doffing clothing sitting in chair and standing to hike pants over hips. Pt completed sh ower independently using shower bench, grabbars and hand held shower. Pt completed donning clothing independently sitting on chair. Pt stood to complete oral hygiene and grooming at sink. After therapy, pt sitting in recliner with call light/phone in reach. Nrsg in room with pt. All needs met. Therapy Code Descriptions/Definitions Functional [place] Measure: 0=Not Assessed/NA 4=Minimal Assistance 1=Total Assistance 5=Supervision or Setup 2=Maximal Assistance 6=Modified [place] 3=Moderate Assistance 7=Complete IndependenceSCALE: Activities may be completed with or without assistive devices. 2-Gnaurfuysa-mwvabvd completes the activity by him/herself with no assistance from a helper. 5-Set-up or Clean-up Assistance-helper sets up or cleans up; patient completes activity. [place] assists only prior to or following the activity. 4-Supervision or Touching Assistance-helper provides verbal cues and/or touching/steadying and/or contact guard assistance as patient completes activity. Assistance may be provided throughout the activity or intermittently. 3-Partial/Moderate Assistance-helper does LESS THAN HALF the effort. [place] lifts, holds or supports trunk or limbs, but provides less than half the effort. 2-Substantial/Maximal Assistance-helper does MORE THAN HALF the effort. [place] lifts or holds trunk or limbs and provides more than half the effort. 8-Dllukuaiz-rtutch does ALL the effort. Patient does none of the effort to complete the activity. Or, the assistance of 2 or more helpers is required for the patient to complete the activity. If activity was not attempted, code reason: 7-Patient Refused. 9-Not Applicable-not attempted and the patient did not perform the activity before the current illness, exacerbation or injury. 10-Not Attempted due to Environmental Limitations-(lack of equipment, weather restraints, etc.). 88-Not Attempted due to Medical Conditions or Safety Concerns. Eating (QC): 6 Oral Hygiene (QC): 6 Shower/Bathe Self (QC): 6 Upper Body Dressing (QC): 6 Lower Body Dressing (QC): 6 On/Off Footwear: 6 Toileting Hygiene (QC): 6 Toilet Transfer (QC): 6 OT Short Term Goals Short Term Goals Time Frame: Jan 07, 2021 Oral hygiene: 5 Toileting hygiene: 5 Shower/bathe self: 5 Upper body dressin Lower body dressin OT Cigarette And Filter Chief Inspector Goals Residential Goals Time Frame: Jan 16, 2021 Eating (QC): 6 (met) Oral Hygiene (QC): 6 (met) Toileting Hygiene (QC): 6 (met) Shower/Bathe Self (QC): 6 (met) Upper Body Dressing (QC): 6 (met) Lower Body Dressing (QC): 6 (met) On/Off Footwear (QC): 6 (met) Additional Goals: 1-Demonstrate ADL Tasks, 2-Verbalize Understanding, 3- ImproveStrength/Berta 1=Demonstrate adherence to instructed precautions during ADL tasks. 2=Patient will verbalize/demonstrate understanding of assistive devices/cristy fications for ADL. 3=Patient will improve strength/tolerance for activity to enable patient to perform ADL's. OT Education/Plan Problem List/Assessment Assessment: Decreased Activ Tolerance, Impaired Cognition Discharge Recommendations Plan/Recommendations: Continue POC Treatment Plan/Plan of Care Patient would benefit from OT for education, treatment and training to promote independence in ADL's, mobility, safety and/or upper extremity function for ADL's. Plan of Care: ADL Retraining, Functional Mobility, Group Exercise/Act as Ind, UE Funct Exercise/Act Treatment Duration: Jan 16, 2021 Frequency: At least 5 of 7 days/Wk (IRF) Estimated Hrs Per Day: 1.5 hours per day Agreement: Yes Rehab Potential: Good Time/GCodes Start Time: 07:15 Stop Time: 08:45 Total Time Billed (hr/min): 90 Billed Treatment Time 1 visit-ADL 6 (90 min) DEJON PALM Jan 05, 2021 08:45
--- NOTE | 2021-01-05 09:03 | Cardiology Progress Note ---
Subjective Date Seen by Provider: Jan 05, 2021 Time Seen by Provider: 18:00 Subjective/Events-last exam No CP or SOB. Notes some dizziness with standing and mild LE swelling. BP 114/75. Review of Systems General: No Chills, No Night Sweats, No Fatigue, No Malaise, No Appetite, No Other Pulmonary: No Dyspnea, No Cough, No Pleuritic Chest Pain, No Other Cardiovascular: Edema; No: Chest Pain, Palpitations, Orthopnea, Paroxysmal Noc. Dyspnea, Other Focused Exam Lactate Level 01/02/21 20:50: Lactic Acid Level 2.47*H 01/03/21 06:10: Lactic Acid Level 1.11 Objective-Cardiology Exam Last Set of Vital Signs Vital Signs 01/05/21 17:45 Temp 37.7 Pulse 111 Resp 18 B/P (MAP) 123/76 (92) Pulse Ox 98 O2 Delivery Room Air Capillary Refill : I&O Intake and Output 01/05/21 00:00 Intake Total 1802 ml Output Total 675 ml Balance 1127 ml Intake Oral 1222 ml IV Total 580 ml Output Urine Total 675 ml # Voids 4 # Bowel Movements 4 General: Alert, Oriented X3, Cooperative HEENT: Atraumatic, PERRLA Neck: Supple, No JVD, No Thyromegaly Lungs: Clear to Auscultation, Normal Air Movement Heart: Normal S1, Normal S2, No Murmurs, Other (tachcardic) Extremities: No Clubbing, No Cyanosis, Normal Pulses, No Tenderness/Swelling, Other (1+ LE edema bilaterally) Neuro: Normal Gait, Normal Speech, Normal Tone Psych/Mental Status: Mental Status NL, Mood NL Results Lab Laboratory Tests 01/05/21 06:10 A/P-Cardiology Admission Diagnosis Anemia Pneumonia CKD Assessment/Plan Pneumonia, on Linezolid, Azithromycin, and Cefipime. Anemia, hgb 7.9, managed by medical team CKD, Creatinine 1.75, continue to monitor Possible CHF, BNP 127.1, CXR shows small right pleural effusion w/ bibasilar ate lectasis vs infiltrate; Abx managed by medical team. Echo on 01/03/21 shows LVEF at 55-65%, mild mitral regurgitation, left atrium dilation, concentric ventricular hypertrophy, normal systolic function. Supervisory-Addendum Brief Supervisory Addendum Participated in pt care: history, MDM, physical Personally performed: exam, history, MDM Care discussed with: Medical Student PRINCESS GOLDEN MED STUDENT Jan 05, 2021 09:03 JUAN CARLOS GUEVARA MD Jan 05, 2021 19:17
--- NOTE | 2021-01-05 10:56 | Physical Therapy Daily Note ---
PT Daily Note-Current Subjective Pt. in recliner states he doesnt feel well, keeps eyes closed, shakes head no and c/o head ache, fatigue , back ache and leg ache. Pt. received and brownie, mixed fruit and meal replacement drink which he devoured quickly. Pt. requested pain meds of nurse , After finally agreeing to walk and have some activity pt. then again withdrew and would not complete Nustep. Nursing in room at end of Rx to assess Pain Numeric Pain Scale: 5-Moderate Pain Location: Medial Location Body Site: Head Pain Description: Ache Mental Status Patient Orientation: MR, Listless Attachments: IV Transfers SCALE: Activities may be completed with or without assistive devices. 0-Kazqgbgoeb-bkkyser completes the activity by him/herself with no assistance from a helper. 5-Set-up or Clean-up Assistance-helper sets up or cleans up; patient completes activity. [place] assists only prior to or following the activity. 4-Supervision or Touching Assistance-helper provides verbal cues and/or touching/steadying and/or contact guard assistance as patient completes activity. Assistance may be provided throughout the activity or intermittently. 3-Partial/Moderate Assistance-helper does LESS THAN HALF the effort. [place] lifts, holds or supports trunk or limbs, but provides less than half the effort. 2-Substantial/Maximal Assistance-helper does MORE THAN HALF the effort. [place] lifts or holds trunk or limbs and provides more than half the effort. 7-Msmhqpsek-mrtbwt does ALL the effort. Patient does none of the effort to complete the activity. Or, the assistance of 2 or more helpers is required for the patient to complete the activity. If activity was not attempted, code reason: 7-Patient Refused. 9-Not Applicable-not attempted and the patient did not perform the activity before the current illness, exacerbation or injury. 10-Not Attempted due to Environmental Limitations-(lack of equipment, weather restraints, etc.). 88-Not Attempted due to Medical Conditions or Safety Concerns. Roll Left & Right (QC): 5 Sit to Lying (QC): 5 Lying to Sitting/Side of Bed(Q: 5 Sit to Stand (QC): 4 Chair/Zdi-fs-Jgdcp Xfer(QC): 5 Toilet Transfer (QC): 6 Car Transfer (QC): 5 pt. needed assist with IV as well as verbal guidance for all TRFs Weight Bearing Right Lower Extremity: Right Full Weight Bearing Left Lower Extremity: Left Full Weight Bearing Gait Training Does the Patient Walk?: Yes Walk 10 feet (QC): 5 Walk 50 ft with 2 Turns(QC): 5 Walk 150 ft (QC): 5 Walking 10ft/uneven surface-QC: 5 Gait Persons Needed: 1 Gait Assistive Device: FWW head down, narrow JAGDEEP, slow gait 150 ft x 2 , 25 ft x 2 Stair Training pt. declined stairs in AM Rx x 3 requests Balance Picking up an Object (QC): 88 Exercises Seated Therapy Exercises: Ankle pumps, Sit to stand, Long arc quads, Hip flexion, Hip abd/add Seated Reps: 12 Treatments pt. ambulated to bathroom with CGA , stood to attempt to urinate, but was unable , appearing frustrated and in some discomfort Assessment Current Status: Good Progress difficult to tell if pt. is being behavioural or if he is having some symptoms and discomfort PT Short Term Goals Short Term Goals Time Frame: Jan 05, 2021 Sit to lyin Lying to sitting on side of be: 5 Sit to stand: 4 Chair/abo-jb-mkkps transfer: 4 Walk 150 feet: 4 4 steps: 4 PT C D Stripper Goals Senior Living Goals PT Senior Living Goals Time Frame: Jan 19, 2021 Roll Left & Right (QC): 6 Sit to Lying (QC): 6 Lying-Sitting on Side/Bed(QC): 6 Sit to Stand (QC): 6 Chair/Uoj-rx-Etave Xfer(QC): 6 Toilet Transfer (QC): 6 Car Transfer (QC): 6 Does the Patient Walk: Yes Walk 10 feet (QC): 6 Walk 50ft with 2 Turns (QC): 6 Walk 150 ft (QC): 6 Walking 10ft on Uneven Surface: 6 1 Step (curb) (QC): 6 4 Steps (QC): 6 12 Steps (QC): 4 Picking up an Object (QC): 4 Does the Pt use WC or Scooter?: No Wheel 50 feet with 2 turns (QC: 9 Wheel 150 feet: 9 PT Plan Treatment/Plan Treatment Plan: Continue Plan of Care Treatment Plan: Bed Mobility, Education, Functional Activity Berta, Functional Strength, Group Therapy, Gait, Safety, Therapeutic Exercise, Transfers Treatment Duration: Jan 19, 2021 Frequency: At least 5 of 7 days/Wk (IRF) Estimated Hrs Per Day: 1.5 hours per day (1 to 1. 5) Patient and/or Family Agrees t: Yes Safety Risks/Education Patient Education: Gait Training, Transfer Techniques, Correct Positioning, Disease Process, Safety Issues Teaching Recipient: Patient Teaching Methods: Demonstration, Discussion Response to Teaching: Verbalize Understanding, Return Demonstration, Reinforcement Needed Time/GCodes Time In: 1000 Time Out: 1100 Total Billed Treatment Time: 60 Total Billed Treatment 1,GT25m,FA20m,EX15m IFEANYI FRANKLIN CATEGORY DIRECTOR Jan 05, 2021 10:56
[2021-01-05 11:25] VITALS: BP 102/62
--- NOTE | 2021-01-05 13:19 | Physical Therapy Daily Note ---
PT Daily Note-Current Subjective Pt. again found asleep in recliner, appears very unhappy , guardado, initially states he will get up to go to the bathroom , begins to put the foot of the recliner down then decides he has changed his mind and wants to lay back down, ignores this LEAF TIER, then in approx, 5 min states ," yes I guess I do need to go to the bathroom"..Tells this LEAF TIER he is very angry and asks me to leave the room and let his rest after back to chair from toileting Pain Numeric Pain Scale: 5-Moderate Pain Location: Right Location Body Site: Hip (and bilat legs) Pain Description: Ache Mental Status Patient Orientation: MR difficult to assess pts c/o, all were relayed to nursing, pt is agitated both AM and PM Transfers SCALE: Activities may be completed with or without assistive devices. 8-Shiwonavqf-frejjil completes the activity by him/herself with no assistance from a helper. 5-Set-up or Clean-up Assistance-helper sets up or cleans up; patient completes activity. [place] assists only prior to or following the activity. 4-Supervision or Touching Assistance-helper provides verbal cues and/or touching/steadying and/or contact guard assistance as patient completes activity. Assistance may be provided throughout the activity or intermittently. 3-Partial/Moderate Assistance-helper does LESS THAN HALF the effort. [place] lifts, holds or supports trunk or limbs, but provides less than half the effort. 2-Substantial/Maximal Assistance-helper does MORE THAN HALF the effort. [place] lifts or holds trunk or limbs and provides more than half the effort. 5-Hrsacliih-kdeevo does ALL the effort. Patient does none of the effort to complete the activity. Or, the assistance of 2 or more helpers is required for the patient to complete the activity. If activity was not attempted, code reason: 7-Patient Refused. 9-Not Applicable-not attempted and the patient did not perform the activity before the current illness, exacerbation or injury. 10-Not Attempted due to Environmental Limitations-(lack of equipment, weather restraints, etc.). 88-Not Attempted due to Medical Conditions or Safety Concerns. Sit to Stand (QC): 5 Weight Bearing Right Lower Extremity: Right Full Weight Bearing Left Lower Extremity: Left Full Weight Bearing Gait Training Does the Patient Walk?: Yes Walk 10 feet (QC): 4 Walk 50 ft with 2 Turns(QC): 4 Gait Assistive Device: FWW CGA for all gait secondary to pts c/o he did not feel well, no LOB Treatments pt. ambulated to bathroom CGA, stood to urinate indep, then washed at sink and walked back to recliner . Pt. very upset for no apparent reason and tells this LEAF TIER to leave the room as he is going to rest and is very angry, alarm insitu, blanket and call ball at side Assessment Current Status: Good Progress, Fair Progress uncooperative, appears he does not feel well, pt. is difficult to assess PT Short Term Goals Short Term Goals Time Frame: Jan 05, 2021 Sit to lyin Lying to sitting on side of be: 5 Sit to stand: 4 Chair/ixj-xh-vbzko transfer: 4 Walk 150 feet: 4 4 steps: 4 PT Hydro Generation Supervisor Goals Hydro Generation Supervisor Goals PT Hydro Generation Supervisor Goals Time Frame: Jan 19, 2021 Roll Left & Right (QC): 6 Sit to Lying (QC): 6 Lying-Sitting on Side/Bed(QC): 6 Sit to Stand (QC): 6 Chair/Gys-ld-Axttl Xfer(QC): 6 Toilet Transfer (QC): 6 Car Transfer (QC): 6 Does the Patient Walk: Yes Walk 10 feet (QC): 6 Walk 50ft with 2 Turns (QC): 6 Walk 150 ft (QC): 6 Walking 10ft on Uneven Surface: 6 1 Step (curb) (QC): 6 4 Steps (QC): 6 12 Steps (QC): 4 Picking up an Object (QC): 4 Does the Pt use WC or Scooter?: No Wheel 50 feet with 2 turns (QC: 9 Wheel 150 feet: 9 PT Plan Treatment/Plan Treatment Plan: Continue Plan of Care Treatment Plan: Bed Mobility, Education, Functional Activity Berta, Functional Strength, Group Therapy, Gait, Safety, Therapeutic Exercise, Transfers Treatment Duration: Jan 19, 2021 Frequency: At least 5 of 7 days/Wk (IRF) Estimated Hrs Per Day: 1.5 hours per day (1 to 1. 5) Patient and/or Family Agrees t: Yes Safety Risks/Education Patient Education: Gait Training, Transfer Techniques Response to Teaching: Reinforcement Needed Time/GCodes Time In: 1300 Time Out: 1315 Total Billed Treatment Time: 15 Total Billed Treatment 1,FA15m IFEANYI FRANKLIN LEAF TIER Jan 05, 2021 13:19
[2021-01-05] MEDS ORDERED: LNZ600T PO (13:21)
[2021-01-05] MEDS ORDERED: CEFD300C3 PO (13:21)
--- NOTE | 2021-01-05 13:22 | D/C HH Face to Face Order ---
D/C Face to Face Orders Reconcile Patient Problems Problems Reviewed?: Yes Instructions for Patient Home Health Patient Instructions/FollowUp: PCP 1 week Physician to follow Patient: PCP Discharge Diet for Home: No Restrictions Patient Problems: Debility PNA Patient Data-Allergies,Ht & Wt Patient Allergies: Coded Allergies: No Known Allergies (Verified Allergy, Unknown, 12/28/20) Home Health Need/Face to Face Date of Face to Face: Jan 05, 2021 Clinical Findings: Immune-compromised, Instability, Muscle weakness, Unsteady gait I have seen Pt slqh-cg-[id number]: Yes Discharged To: Home Diagnosis/Conditions: Debility PNA Patient is Homebound due to: CognItive deficits, [place] fall risk due to instabilty, Muscle weakness Homebound Status Due to the above stated illness, injury or surgical procedure (medical condition or diagnosis) and associated clinical findings, the patient is homebou nd because of his/her inability to leave home except with aid of a supportive device and/or person AND leaving the home requires a considerable and taxing effort or is medically contraindicated. Pt req the following assistanc: Walker Home Health Nursing Orders Home Health Services Order: Nursing Services, Construction Checker-Evaluate & Treat, Physical Therapy-Evaluate & Treat Certify Stmt I certify that this patient is under my care and that I, a nurse practitioner or a physician; a baking assistant working with me, had a face to face encounter that - meets the physician face to face encounter requirements with this patient as dated. ORAL RIVERA DO Jan 05, 2021 13:22
[2021-01-05 17:45] VITALS: BP 123/76
[2021-01-05] MEDS: MELATONIN 3 MG TABLET PO PRN (21:32)
[2021-01-05] MEDS: LINEZOLID (ZYVOX) 600 MG TAB PO SCH (21:33)
[2021-01-06 06:00] VITALS: BP 115/74
[2021-01-06] MEDS: MULTIVIT W/MINERALS TAB (THERAGRAN M) PO SCH (06:31)
[2021-01-06] MEDS: CEFEPIME INJECTION 1,000 MG in WATER (STERILE) FOR INJECTION 10 ML IV SCH ×2 (06:32→14:24)
[2021-01-06] MEDS: KETOCONAZOLE 2% TP SCH (08:17)
[2021-01-06] MEDS: TERIPARATIDE 600 MCG/2.4 ML (FORTEO) SYR SQ SCH (08:18)
[2021-01-06] MEDS: LIPASE/AMYLASE/PROTEASE (PANCRELIPASE) 5,000 UNITS CAP PO SCH ×2 (08:19→13:06)
[2021-01-06] MEDS: CALCITRIOL 0.25 MCG (ROCALTROL) CAPSULE PO SCH (08:19)
[2021-01-06] MEDS: SODIUM BICARBONATE 650 MG TABLET (NON-FORMULARY) PO SCH ×2 (08:19→13:07)
[2021-01-06] MEDS: LINEZOLID (ZYVOX) 600 MG TAB PO SCH (08:19)
[2021-01-06] MEDS: PANTOPRAZOLE 40 MG (PROTONIX) TAB PO SCH (08:20)
[2021-01-06] MEDS: predniSONE 5 MG TAB PO SCH (08:20)
[2021-01-06] MEDS: ALLOPURINOL 100 MG (ZYLOPRIM) TAB PO SCH (08:20)
--- NOTE | 2021-01-06 08:20 | Cardiology Progress Note ---
Subjective Date Seen by Provider: Jan 06, 2021 Time Seen by Provider: 08:19 Subjective/Events-last exam Patient sitting up in chair, denies any chest pain or dyspnea. Review of Systems General: No Chills, No Night Sweats, No Fatigue, No Malaise, No Appetite, No Other HEENT: No Head Aches, No Visual Changes, No Eye Pain, No Ear Pain, No Dysphasia, No Sinus Congestion, No Post Nasal Drip, No Sore Throat, No Other Pulmonary: No Dyspnea, No Cough, No Pleuritic Chest Pain, No Other Cardiovascular: No: Chest Pain, Palpitations, Orthopnea, Paroxysmal Noc. Dyspnea, Edema, Lt Headedness, Other Objective-Cardiology Exam Last Set of Vital Signs Vital Signs 01/06/21 01/06/21 06:00 09:00 Temp 37.4 Pulse 99 Resp 18 B/P (MAP) 115/74 (88) Pulse Ox 96 O2 Delivery Room Air Capillary Refill : I&O Intake and Output 01/06/21 00:00 Intake Total 2360 ml Output Total 200 ml Balance 2160 ml Intake Oral 1800 ml IV Total 560 ml Output Urine Total 200 ml # Voids 4 # Urine Diapers 3 # Bowel Movements 3 General: Alert, Oriented X3, Cooperative HEENT: Atraumatic, PERRLA Neck: Supple, No JVD, No Thyromegaly Lungs: Clear to Auscultation, Normal Air Movement Heart: Normal S1, Normal S2, No Murmurs, Other (tachcardic) Extremities: No Clubbing, No Cyanosis, Normal Pulses, No Tenderness/Swelling, Other (1+ LE edema bilaterally) Neuro: Normal Gait, Normal Speech, Normal Tone Psych/Mental Status: Mental Status NL, Mood NL A/P-Cardiology Admission Diagnosis Anemia Pneumonia CKD Assessment/Plan Pneumonia, improved, management per primary team Anemia, hgb 7.9, managed by medical team CKD, Creatinine 1.75, continue to monitor Possible CHF, BNP 127.1, CXR shows small right pleural effusion w/ bibasilar atelectasis vs infiltrate; Abx managed by medical team. Echo on 01/03/21 shows LVEF at 55-65%, mild mitral regurgitation, left atrium dilation, concentric ventricular hypertrophy, normal systolic function. Supervisory-Addendum Brief Supervisory Addendum Participated in pt care: history, MDM, physical Personally performed: exam, history, MDM Care discussed with: DELMY Notes: Patient was seen at bedside, sitting comfortably, no new complaint, continue current medication Noted to have hyperkalemia, managed by primary care physician Okay for discharge from cardiology standpoint LANCE EVANS Jan 06, 2021 08:20 JUAN CARLOS GUEVARA MD Jan 06, 2021 11:22
[2021-01-06] MEDS: VITAMIN D3 25 MCG (1,000 UNITS) TABLET PO SCH (08:23)
[2021-01-06] MEDS: CALCIUM CITRATE 950 MG PO SCH ×2 (08:24→13:07)
[2021-01-06] MEDS: TACROLIMUS 1 MG (PROGRAF) CAP NON-FORMULARY PO SCH (08:24)
--- NOTE | 2021-01-06 08:47 | Therapy Team Discharge Summary ---
Therapy Discharge Summary Discharge Recommendations Date of Discharge Physical Therapy Patient came to rehab with Toxic Metabolic Encephalopathy. Upon evaluation patient performed bed mobility with SBA, sit to supine SBA, supine to sit with min assist, sit <-> stand min assist, transfers and car transfer min assist, ambulated 150' with a rolling walker with CGA (including 50' with at least 2 turns of 90 degrees and 10' over an uneven surface), and could go up and down 4 steps using 2 handrails with min assist. Patient has been performing bed mobility and transfer training, balance and endurance training, functional strengthening, stair training, gait training, and education. Patient has made some progress but has not met any of his intermediate accountant goals. Now, patient performs bed mobility and supine <-> sit with setup, sit <-> stand with CGA/SBA, transfers and car transfer with setup, ambulates 150' with a rolling walker with setup (including 50' with at least 2 turns of 90 degrees and 10' over an uneven surface), patient declines to perform stairs. Patient is discharging from this facility today and will be discharged from PT at this time. Occupational Therapy Decreased Activ Tolerance, Impaired Cognition PT Half-Way Goals Singing Teacher Goals PT Half-Way Goals Time Frame: Jan 19, 2021 Roll Left to Right (QC): 6 Sit to Lying (QC): 6 Lying-Sitting on Side/Bed(QC): 6 Sit to Stand (QC): 6 Chair/Iir-qy-Tgezm Xfer(QC): 6 Car Transfer (QC): 6 Does the Patient Walk: Yes Walk 10 feet (QC): 6 Walk 10ft-Uneven Surface(QC): 6 Walk 50ft with 2 Turns (QC): 6 Walk 150 ft (QC): 6 Does the Pt use WC or Scooter?: No Wheel 50 feet with 2 turns (QC: 9 1 Step (curb) (QC): 6 4 Steps (QC): 6 12 Steps (QC): 4 Picking up an Object (QC): 4 OT Singing Teacher Goals Singing Teacher Goals Time Frame: Jan 16, 2021 Eating (QC): 6 (met) Oral Hygiene (QC): 6 (met) Shower/Bathe Self (QC): 6 (met) Upper Body Dressing (QC): 6 (met) Lower Body Dressing (QC): 6 (met) On/Off Footwear (QC): 6 (met) Toileting Hygiene (QC): 6 (met) Toilet/Commode Transfer (QC): 6 Additional Goals: 1-Demonstrate ADL Tasks, 2-Verbalize Understanding, 3- ImproveStrength/Berta 1=Demonstrate adherence to instructed precautions during ADL tasks. 2=Patient will verbalize/demonstrate understanding of assistive devices/modifications for ADL. 3=Patient will improve strength/tolerance for activity to enable patient to perform ADL's. Speech Half-Way Goals Half-Way Goals Patient will improve his cognitive-communication skills in order to return to his prior level of function. ARIC MAI PT Jan 06, 2021 08:47
[2021-01-06] MEDS ORDERED: AZITHROMYCIN 250 MG TAB (ZITHROMAX) PO SCH (09:00)
--- NOTE | 2021-01-06 09:08 | PM&R Progress Note ---
Subjective HPI/CC On Admission Date Seen by Provider: Jan 06, 2021 Time Seen by Provider: 09:15 Subjective/Events-last exam 01/05/21: Pt doing pretty well Imodium given for loose stools Will discharge tomorrow WBC 4.0, Hgb 7.9, Creatinine 1.75, calcium low chronically at 5.1 No pain is reported 01/04/21: Patient doing well Family here today visiting [place] making him tremor a bit Abx maintained Broad spectrum abx given BCx from port Staph epi so s/p r epeat BCx and place on Zyvox May need transfusion tomorrow 01/03/21: Patient was dx with PNA and placed on empiric abx IVF will be DC Patient feels better MRSA pending Low grade temp 01/02/21: Upset he can't go home today which was never the plan Rechecking him for progress next week as per our standard No pain reported except back Low calcium is a chronic issue and he is on max meds Eating a lot 01/01/21: Patient doing well Diarrhea still an issue Imodium given Creon helpful Back pain requiring Kpad 12/31/20: Pt doing really well Has a stage II decubitus ulcer on his coccyx Eats really well Denies any other significant pain Checked meds and labs 12/30/20: Pt doing very well Having loose bowels Working with PT Overall doing very well 12/29/20: Pt doing pretty well Spilled his urinal and got upset with himself WBC 2.5, Hgb 8.2 Checking iron level Creatinine 1.73 Albumin 2.5 and potassium 5.3 Goes by jeronimo Adames Objective Exam Vital Signs Vital Signs Date Time Temp Pulse Resp B/P (MAP) Pulse Ox O2 Delivery O2 Flow Rate FiO2 01/06/21 06:00 37.4 99 18 115/74 (88) 96 Room Air Capillary Refill : General Appearance: No Apparent Distress, WD/WN, Anxious, Chronically ill, Thin, Other (pale, fatigued) HEENT: PERRL/EOMI, Normal ENT Inspection, Pharynx Normal Neck: Full Range of Motion, Normal Inspection, Non Tender, Supple, Carotid Bruit Respiratory: Chest Non Tender, Lungs Clear, Normal Breath Sounds, No Accessory Muscle Use, No Respiratory Distress Cardiovascular: Regular Rate, Rhythm, No Gallop, No JVD, No Murmur, Normal Peripheral Pulses Gastrointestinal: Normal Bowel Sounds, No Organomegaly, No Pulsatile Mass, Non Tender, Soft Back: Normal Inspection, No CVA Tenderness, No Vertebral Tenderness Extremity: Normal Capillary Refill, Normal Inspection, Normal Range of Motion, Non Tender, No Calf Tenderness, Pedal Edema Neurologic/Psychiatric: Alert, Oriented x3, Normal Mood/Affect, ambulatory analyst II-XII Norm as Tested, Abnormal Gait, Disoriented, Motor Weakness (decreased extremities 4/5) Skin: Normal Color, Warm/Dry Lymphatic: No Adenopathy Results/Procedures Lab Patient resulted labs reviewed. FIM Transfers Therapy Code Descriptions/Definitions Functional [place] Measure: 0=Not Assessed/NA 4=Minimal Assistance 1=Total Assistance 5=Supervision or Setup 2=Maximal Assistance 6=Modified Xenia 3=Moderate Assistance 7=Complete IndependenceSCALE: Activities may be completed with or without assistive devices. 7-[id number] completes the activity by him/herself with no assistance from a helper. 5-Set-up or Clean-up Assistance-helper sets up or cleans up; patient completes activity. [place] assists only prior to or following the activity. 4-Supervision or Touching Assistance-helper provides verbal cues and/or touching/steadying and/or contact guard assistance as patient completes activity. Assistance may be provided throughout the activity or intermittently. 3-Partial/Moderate Assistance-helper does LESS THAN HALF the effort. [place] lifts, holds or supports trunk or limbs, but provides less than half the effort. 2-Substantial/Maximal Assistance-helper does MORE THAN HALF the effort. [place] lifts or holds trunk or limbs and provides more than half the effort. 3-Jdhjpiaiu-vrlgnc does ALL the effort. Patient does none of the effort to complete the activity. Or, the assistance of 2 or more helpers is required for the patient to complete the activity. If activity was not attempted, code reason: 7-Patient Refused. 9-Not Applicable-not attempted and the patient did not perform the activity before the current illness, exacerbation or injury. 10-Not Attempted due to Environmental Limitations-(lack of equipment, weather restraints, etc.). 88-Not Attempted due to Medical Conditions or Safety Concerns. Roll Left to Right (QC): 5 Sit to Lying (QC): 5 Sit to Stand (QC): 5 Chair/Ezn-ps-Wewqj Xfer(QC): 5 Car Transfer (QC): 5 Gait Training Does the Patient Walk?: Yes Distance: 200' Walk 10 feet (QC): 4 Walk 50 ft with 2 Turns(QC): 4 Walk 150 ft (QC): 5 Walking 10ft/uneven surface-QC: 5 Gait Persons Needed: 1 Gait Assistive Device: FWW Wheelchair Training Does the Pt Use a Wheelchair?: No Wheel 50 ft with 2 turns (QC): 9 Wheel 150 ft (QC): 9 Stair Training 1 Step (curb) (QC): 3 (min assist as he steps up) 4 Steps (QC): 3 (min assist for balance and safety; used B handrails) 12 Steps (QC): 88 Balance Picking up an Object (QC): 88 ADL-Treatment Eating (QC): 6 Oral Hygiene (QC): 6 Bathing Location: L Arm, R Arm, L Upper Leg, R Upper Leg, L Lower Leg (including foot), R Lower Leg (including foot), Chest, Abdomen Shower/Bathe Self (QC): 6 Upper Body Dressing (QC): 6 Lower Body Dressing (QC): 6 On/Off Footwear (QC): 6 Toileting Hygiene (QC): 6 Toilet Transfer (QC): 6 Assessment/Plan Assessment and Plan Assess & Plan/Chief Complaint Assessment: Myopathy Acute PNA 01/02/21 Intellectual disability Cachexia Seizure d/o 12/15/20 new onset Chronic diarrhea Anemia Hypocalcemia Metabolic acidosis Prednisone dependence Staph epi from Bcx taken from port s/p repeat BCx and placed on Zyvox empirically Plan: IRF protocol Check labs Monitor pain Seizure precautions 12/29/20: Monitor closely Increase diet Monitor creat and hgb 12/30/20: Monitor hgb Fall risk 12/31/20: Monitor BP Improve dietary consumption 01/01/21: Monitor diarrhea Monitor for falls 01/02/21: Patient wants to go home soon Monitor for falls 01/03/21: IV abx Monitor closely Monitor fever 01/04/21: Zyvox for bacteremia s/p BCx repeat Broad spectrum abx May need transfusion tomorrow 01/05/21: DC tomorrow Abx selected Repeat BCx negative 01/04/21 (1) Myopathy (2) Seizure (3) Chronic diarrhea (4) Hypocalcemia (5) Renal transplant recipient (6) PKD (polycystic kidney disease) (7) Intellectual disability (8) Hypomagnesemia (9) Anemia (10) Buttock wound (11) Port-A-Cath in place (12) Cachexia (13) Vitamin D deficiency (14) Steroid dependence ORAL RIVERA DO Jan 06, 2021 09:08
--- NOTE | 2021-01-06 09:09 | Discharge Summary ---
Diagnosis/Chief Complaint Date of Admission Dec 28, 2020 at 12:48 Date of Discharge Discharge Date: Jan 06, 2021 Discharge Diagnosis Assessment: Myopathy Acute PNA 01/02/21 Intellectual disability Cachexia Seizure d/o 12/15/20 new onset Chronic diarrhea Anemia Hypocalcemia Metabolic acidosis Prednisone dependence Staph epi from Bcx taken from port s/p repeat BCx and placed on Zyvox empirically Plan: IRF protocol Check labs Monitor pain Seizure precautions 12/29/20: Monitor closely Increase diet Monitor creat and hgb 12/30/20: Monitor hgb Fall risk 12/31/20: Monitor BP Improve dietary consumption 01/01/21: Monitor diarrhea Monitor for falls 01/02/21: Patient wants to go home soon Monitor for falls 01/03/21: IV abx Monitor closely Monitor fever 01/04/21: Zyvox for bacteremia s/p BCx repeat Broad spectrum abx May need transfusion tomorrow 01/05/21: DC tomorrow Abx selected Repeat BCx negative 01/04/21 (1) Myopathy (2) Seizure (3) Chronic diarrhea (4) Hypocalcemia (5) Renal transplant recipient (6) PKD (polycystic kidney disease) (7) Intellectual disability (8) Hypomagnesemia (9) Anemia (10) Buttock wound (11) Port-A-Cath in place (12) Cachexia (13) Vitamin D deficiency (14) Steroid dependence Discharge Summary Discharge Physical Examination Allergies: Coded Allergies: No Known Allergies (Verified Allergy, Unknown, 12/28/20) Vitals & I&Os Vital Signs Date Time Temp Pulse Resp B/P (MAP) Pulse Ox O2 Delivery O2 Flow Rate FiO2 01/06/21 17:03 37.0 104 18 101/70 (80) 98 Room Air General Appearance: Alert, Oriented X3, Cooperative Respiratory: Clear to Auscultation Cardiovascular: Regular Rate Neuro: Normal Gait Psych/Mental Status: Mental Status NL Hospital Course Was the Problem List Reviewed?: Yes Hospital Course: Pt had a lengthy hospital course for 10 days after he was moved from to inpatient rehab for aggressive therapy. He was able to regain function, he was eating very well, had gained some weight during his stay and bowel function returned back to normal. Labs remained stable, chronic anemia of 7.9 hgb and low calcium level although he is on a significant dose of Vitamin D so he will be monitored closely and he was discharged in improved condition and will have close follow up with his PCP at . Labs (last 24 hrs) Laboratory Tests 12/28/20 12:48: Lab Scanned Report Referred Lab Report 12/29/20 05:07: White Blood Count 2.5L, Red Blood Count 2.60L, Hemoglobin 8.2L, Hematocrit 28L, Mean Corpuscular Volume 106H, Mean Corpuscular Hemoglobin 32, Mean Corpuscular Hemoglobin Concent 30L, Red Cell Distribution Width 19.5H, Platelet Count 181, Mean Platelet Volume 10.8, Immature Granulocyte % (Auto) 0, Neutrophils (%) (Auto) 56, Lymphocytes (%) (Auto) 30, Monocytes (%) (Auto) 11, Eosinophils (%) (Auto) 3, Basophils (%) (Auto) 0, Neutrophils # (Auto) 1.4L, Lymphocytes # (Auto) 0.8L, Monocytes # (Auto) 0.3, Eosinophils # (Auto) 0.1, Basophils # (A uto) 0.0, Immature Granulocyte # (Auto) 0.0, Sodium Level 139, Potassium Level 5.3H, Chloride Level 109H, Carbon Dioxide Level 20L, Anion Gap 10, Blood Urea Nitrogen 26H, Creatinine 1.73H, Estimat Glomerular Filtration Rate 43, BUN/Creatinine Ratio 15, Glucose Level 88, Calcium Level 7.2L, Corrected Calcium 8.4L, Total Bilirubin 0.4, Aspartate Amino Transf (AST/SGOT) 24, Alanine Aminotransferase (ALT/SGPT) 31, Alkaline Phosphatase 103, Total Protein 4.3L, A lbumin 2.5L 12/29/20 05:45: Iron Level 67 01/02/21 06:25: White Blood Count 2.2L, Red Blood Count 2.53L, Hemoglobin 8.1L, Hematocrit 27L, Mean Corpuscular Volume 107H, Mean Corpuscular Hemoglobin 32, Mean Corpuscular Hemoglobin Concent 30L, Red Cell Distribution Width 18.6H, Platelet Count 185, Mean Platelet Volume 9.9, Immature Granulocyte % (Auto) 1, Neutrophils (%) (Auto) 51, Lymphocytes (%) (Auto) 31, Monocytes (%) (Auto) 13H, Eosinophils (%) (Auto) 2, Basophils (%) (Auto) 1, Neutrophils # (Auto) 1.1L, Lymphocytes # (Auto) 0.7L, Monocytes # (Auto) 0.3, Eosinophils # (Auto) 0.1, Basophils # (Auto) 0.0, Immature Granulocyte # (Auto) 0.0, Sodium Level 141, Potassium Level 5.0, Chloride Level 111H, Carbon Dioxide Level 21, Anion Gap 9, Blood Urea Nitrogen 37H, Creatinine 1.88H, Estimat Glomerular Filtration Rate 39, BUN/Creatinine Ratio 20, Glucose Level 95, Calcium Level 5.2*L, Corrected Calcium 6.3L, Total Bilirubin 0.3, Aspartate Amino Transf (AST/SGOT) 11, Alanine Aminotransferase (ALT/SGPT) 15, Alkaline Phosphatase 80, Total Protein 4.6L, Albumin 2.6L 01/02/21 18:33: White Blood Count 3.1L, Red Blood Count 2.57L, Hemoglobin 8.4L, Hematocrit 28L, Mean Corpuscular Volume 107H, Mean Corpuscular Hemoglobin 33, Mean Corpuscular Hemoglobin Concent 30L, Red Cell Distribution Width 18.4H, Platelet Count 210, Mean Platelet Volume 10.1, Immature Granulocyte % (Auto) 1, Neutrophils (%) (Auto) 51, Lymphocytes (%) (Auto) 31, Monocytes (%) (Auto) 15H, Eosinophils (%) (Auto) 2, Basophils (%) (Auto) 1, Neutrophils # (Auto) 1.6L, Lymphocytes # (Auto) 1.0, Monocytes # (Auto) 0.5, Eosinophils # (Auto) 0.1, Basophils # (Auto) 0.0, Immature Granulocyte # (Auto) 0.0, Sodium Level 141, Potassium Level 5.3H, Chloride Level 111H, Carbon Dioxide Level 19L, Anion Gap 11, Blood Urea Nitrogen 40H, Creatinine 1.98H, Estimat Glomerular Filtration Rate 36, BUN/Creatinine Ratio 20, Glucose Level 104, Lactic Acid Level 2.15*H, Calcium Level 5.5*L, Procalcitonin 0.14H 01/02/21 19:25: Urine Color YELLOW, Urine Clarity CLEAR, Urine pH 6.0, Urine Specific [place] 1.025H, Urine Protein 1+H, Urine Glucose (UA) NEGATIVE, Urine Ketones NEGATIVE, Urine Nitrite NEGATIVE, Urine Bilirubin NEGATIVE, Urine Urobilinogen 0.2, Urine Leukocyte Esterase NEGATIVE, Urine RBC (Auto) NEGATIVE, Urine RBC NONE, Urine WBC NONE, Urine Squamous Epithelial Cells NONE, Urine Crystals PRESENTH, Urine Calcium Oxalate Crystals RAREH, Urine Bacteria TRACE, Urine Casts PRESENT, Urine Hyaline Casts RARE, Urine Mucus NEGATIVE, Urine Culture Indicated NO 01/02/21 20:50: Lactic Acid Level 2.47*H 01/03/21 05:30: White Blood Count 2.6L, Red Blood Count 2.37L, Hemoglobin 7.5L, Hematocrit 25L, Mean Corpuscular Volume 107H, Mean Corpuscular Hemoglobin 32, Mean Corpuscular Hemoglobin Concent 30L, Red Cell Distribution Width 18.3H, Platelet Count 199, Mean Platelet Volume 10.0, Immature Granulocyte % (Auto) 1, Neutrophils (%) (Au to) 47, Lymphocytes (%) (Auto) 35, Monocytes (%) (Auto) 13H, Eosinophils (%) (Auto) 2, Basophils (%) (Auto) 1, Neutrophils # (Auto) 1.2L, Lymphocytes # (Auto) 0.9L, Monocytes # (Auto) 0.4, Eosinophils # (Auto) 0.1, Basophils # (Auto) 0.0, Immature Granulocyte # (Auto) 0.0, Sodium Level 143, Potassium Level 5.0, Chloride Level 113H, Carbon Dioxide Level 20L, Anion Gap 10, Blood Urea Nitrogen 40H, Creatinine 1.80H, Estimat Glomerular Filtration Rate 41, BUN/Creatinine Ratio 22, Glucose Level 90, Calcium Level 5.4*L, Neutrophils % (Manual) 47, Lymphocytes % (Manual) 39, Monocytes % (Manual) 10, Eosinophils % (Manual) 2, Atypical Lymphocytes 2, Polychromasia SLIGHT, Hypochromasia SLIGHT, Anisocytosis SLIGHT, Microcytosis SLIGHT, Corrected Calcium 6.6L, Total Bilirubin 0.3, Aspartate Amino Transf (AST/SGOT) 15, Alanine Aminotransferase (ALT/SGPT) 15, Alkaline Phosphatase 94, B-Type Natriuretic Peptide 127.1H, Total Protein 4.5L, Albumin 2.5L 01/03/21 06:10: Lactic Acid Level 1.11 01/05/21 06:10: White Blood Count 4.0L, Red Blood Count 2.45L, Hemoglobin 7.9L, Hematocrit 26L, Mean Corpuscular Volume 108H, Mean Corpuscular Hemoglobin 32, Mean Corpuscular Hemoglobin Concent 30L, Red Cell Distribution Width 17.9H, Platelet Count 257, Mean Platelet Volume 10.5, Immature Granulocyte % (Auto) 2, Neutrophils (%) (Auto) 61, Lymphocytes (%) (Auto) 23, Monocytes (%) (Auto) 11, Eosinophils (%) (Auto) 2, Basophils (%) (Auto) 1, Neutrophils # (Auto) 2.4, Lymphocytes # (Auto) 0.9L, Monocytes # (Auto) 0.5, Eosinophils # (Auto) 0.1, Basophils # (Auto) 0.0, Immature Granulocyte # (Auto) 0.1, Sodium Level 141, Potassium Level 5.9H, Chloride Level 111H, Carbon Dioxide Level 20L, Anion Gap 10, Blood Urea Nitrogen 36H, Creatinine 1.75H, Estimat Glomerular Filtration Rate 42, BUN/Creatinine Ratio 21, Glucose Level 89, Calcium Level 5.1*L, Corrected Calcium 6.3L, Total Bilirubin 0.3, Aspartate Amino Transf (AST/SGOT) 14, Alanine Aminotransferase (ALT/SGPT) 13, Alkaline Phosphatase 83, Total Protein 4.7L, Albumin 2.5L Microbiology 01/04/21 Blood Culture - Preliminary, Resulted No growth 01/03/21 MRSA Screen - Final, Complete MRSA not isolated Pending Labs Microbiology Date/Time Source Procedure Growth Status 01/04/21 09:31 Peripheral Lt Hand Blood Culture - Preliminary No growth Resulted 01/04/21 09:30 Port Port, Nos Blood Culture - Preliminary No growth Resulted 01/03/21 09:37 Nasal MRSA Screen - Final MRSA not isolated Complete 01/02/21 20:50 Peripheral Lt Hand Blood Culture - Preliminary No growth Resulted 01/02/21 20:38 Blood Not Indicated On Bottle Blood Culture - Final Staphylococcus hominis See Comments Complete 01/02/21 18:37 Nasopharynx Influenza Types A,B Antigen (ASAD) - Final Complete Laboratory Tests 12/28/20 12:48: Lab Scanned Report Referred Lab Report 12/29/20 05:07: White Blood Count 2.5, Red Blood Count 2.60, Hemoglobin 8.2, Hematocrit 28, Mean Corpuscular Volume 106, Mean Corpuscular Hemoglobin 32, Mean Corpuscular Hemogl obin Concent 30, Red Cell Distribution Width 19.5, Platelet Count 181, Mean Platelet Volume 10.8, Immature Granulocyte % (Auto) 0, Neutrophils (%) (Auto) 56, Lymphocytes (%) (Auto) 30, Monocytes (%) (Auto) 11, Eosinophils (%) (Auto) 3, Basophils (%) (Auto) 0, Neutrophils # (Auto) 1.4, Lymphocytes # (Auto) 0.8, Monocytes # (Auto) 0.3, Eosinophils # (Auto) 0.1, Basophils # (Auto) 0.0, Immature Granulocyte # (Auto) 0.0, Sodium Level 139, Potassium Level 5.3, Chloride Level 109, Carbon Dioxide Level 20, Anion Gap 10, Blood Urea Nitrogen 26, Creatinine 1.73, Estimat Glomerular Filtration Rate 43, BUN/Creatinine Ratio 15, Glucose Level 88, Calcium Level 7.2, Corrected Calcium 8.4, Total Bilirubin 0.4, Aspartate Amino Transf (AST/SGOT) 24, Alanine Aminotransferase (ALT/SGPT) 31, Alkaline Phosphatase 103, Total Protein 4.3, Albumin 2.5 12/29/20 05:45: Iron Level 67 01/02/21 06:25: White Blood Count 2.2, Red Blood Count 2.53, Hemoglobin 8.1, Hematocrit 27, Mean Corpuscular Volume 107, Mean Corpuscular Hemoglobin 32, Mean Corpuscular Hemoglobin Concent 30, Red Cell Distribution Width 18.6, Platelet Count 185, Mean Platelet Volume 9.9, Immature Granulocyte % (Auto) 1, Neutrophils (%) (Auto) 51, Lymphocytes (%) (Auto) 31, Monocytes (%) (Auto) 13, Eosinophils (%) (Auto) 2, Basophils (%) (Auto) 1, Neutrophils # (Auto) 1.1, Lymphocytes # (Auto) 0.7, Monocytes # (Auto) 0.3, Eosinophils # (Auto) 0.1, Basophils # (Auto) 0.0, Immature Granulocyte # (Auto) 0.0, Sodium Level 141, Potassium Level 5.0, Chloride Level 111, Carbon Dioxide Level 21, Anion Gap 9, Blood Urea Nitrogen 37, Creatinine 1.88, Estimat Glomerular Filtration Rate 39, BUN/Creatinine Ratio 20, Glucose Level 95, Calcium Level 5.2, Corrected Calcium 6.3, Total Bilirubin 0.3, Aspartate Amino Transf (AST/SGOT) 11, Alanine Aminotransferase (ALT/SGPT) 15, Alkaline Phosphatase 80, Total Protein 4.6, Albumin 2.6 01/02/21 18:33: White Blood Count 3.1, Red Blood Count 2.57, Hemoglobin 8.4, Hematocrit 28, Mean Corpuscular Volume 107, Mean Corpuscular Hemoglobin 33, Mean Corpuscular Hemoglobin Concent 30, Red Cell Distribution Width 18.4, Platelet Count 210, Mean Platelet Volume 10.1, Immature Granulocyte % (Auto) 1, Neutrophils (%) (Auto) 51, Lymphocytes (%) (Auto) 31, Monocytes (%) (Auto) 15, Eosinophils (%) (Auto) 2, Basophils (%) (Auto) 1, Neutrophils # (Auto) 1.6, Lymphocytes # (Auto) 1.0, Monocytes # (Auto) 0.5, Eosinophils # (Auto) 0.1, Basophils # (Auto) 0.0, Immature Granulocyte # (Auto) 0.0, Sodium Level 141, Potassium Level 5.3, Chloride Level 111, Carbon Dioxide Level 19, Anion Gap 11, Blood Urea Nitrogen 40, Creatinine 1.98, Estimat Glomerular Filtration Rate 36, BUN/Creatinine Ratio 20, Glucose Level 104, Lactic Acid Level 2.15, Calcium Level 5.5, Procalcitonin 0.14 01/02/21 19:25: Urine Color YELLOW, Urine Clarity CLEAR, Urine pH 6.0, Urine Specific [place] 1.025, Urine Protein 1+, Urine Glucose (UA) NEGATIVE, Urine Ketones NEGATIVE, Urine Nitrite NEGATIVE, Urine Bilirubin NEGATIVE, Urine Urobilinogen 0.2, Urine Leukocyte Esterase NEGATIVE, Urine RBC (Auto) NEGATIVE, Urine RBC NONE, Urine WBC NONE, Urine Squamous Epithelial Cells NONE, Urine Crystals PRESENT, Urine Calcium Oxalate Crystals RARE, Urine Bacteria TRACE, Urine Casts PRESENT, Urine Hyaline Casts RARE, Urine Mucus NEGATIVE, Urine Culture Indicated NO 01/02/21 20:50: Lactic Acid Level 2.47 01/03/21 05:30: White Blood Count 2.6, Red Blood Count 2.37, Hemoglobin 7.5, Hematocrit 25, Mean Corpuscular Volume 107, Mean Corpuscular Hemoglobin 32, Mean Corpuscular Hemoglobin Concent 30, Red Cell Distribution Width 18.3, Platelet Count 199, Mean Platelet Volume 10.0, Immature Granulocyte % (Auto) 1, Neutrophils (%) (Auto) 47, Lymphocytes (%) (Auto) 35, Monocytes (%) (Auto) 13, Eosinophils (%) (Auto) 2, Basophils (%) (Auto) 1, Neutrophils # (Auto) 1.2, Lymphocytes # (Auto) 0.9, Monocytes # (Auto) 0.4, Eosinophils # (Auto) 0.1, Basophils # (Auto) 0.0, Immature Granulocyte # (Auto) 0.0, Sodium Level 143, Potassium Level 5.0, Chloride Level 113, Carbon Dioxide Level 20, Anion Gap 10, Blood Urea Nitrogen 40, Creatinine 1.80, Estimat Glomerular Filtration Rate 41, BUN/Creatinine Ratio 22, Glucose Level 90, Calcium Level 5.4, Neutrophils % (Manual) 47, Lymphocytes % (Manual) 39, Monocytes % (Manual) 10, Eosinophils % (Manual) 2, Atypical Lymphocytes 2, Polychromasia SLIGHT, Hypochromasia SLIGHT, Anisocytosis SLIGHT, Microcytosis SLIGHT, Corrected Calcium 6.6, Total Bilirubin 0.3, Aspartate Amino Transf (AST/SGOT) 15, Alanine Aminotransferase (ALT/SGPT) 15, Alkaline Phosphatase 94, B-Type Natriuretic Peptide 127.1, Total Protein 4.5, Albumin 2.5 01/03/21 06:10: Lactic Acid Level 1.11 01/05/21 06:10: White Blood Count 4.0, Red Blood Count 2.45, Hemoglobin 7.9, Hematocrit 26, Mean Corpuscular Volume 108, Mean Corpuscular Hemoglobin 32, Mean Corpuscular Hemoglobin Concent 30, Red Cell Distribution Width 17.9, Platelet Count 257, Mean Platelet Volume 10.5, Immature Granulocyte % (Auto) 2, Neutrophils (%) (Auto) 61, Lymphocytes (%) (Auto) 23, Monocytes (%) (Auto) 11, Eosinophils (%) (Auto) 2, Basophils (%) (Auto) 1, Neutrophils # (Auto) 2.4, Lymphocytes # (Auto) 0.9, Monocytes # (Auto) 0.5, Eosinophils # (Auto) 0.1, Basophils # (Auto) 0.0, Immature Granulocyte # (Auto) 0.1, Sodium Level 141, Potassium Level 5.9, Chloride Level 111, Carbon Dioxide Level 20, Anion Gap 10, Blood Urea Nitrogen 36, Creatinine 1.75, Estimat Glomerular Filtration Rate 42, BUN/Creatinine Ratio 21, Glucose Level 89, Calcium Level 5.1, Corrected Calcium 6.3, Total Bilirubin 0.3, Aspartate Amino Transf (AST/SGOT) 14, Alanine Aminotransferase (ALT/SGPT) 13, Alkaline Phosphatase 83, Total Protein 4.7, Albumin 2.5 Discharge Home Medications: Active Scripts Active Cefdinir 300 Mg Capsule 300 Mg PO BID Linezolid 600 Mg Tablet 600 Mg PO BID Forteo (Teriparatide) 600 Mcg/2.4 Ml Syr 20 Mcg SQ DAILY 30 Days [Mvi] 1 Tab PO DAILY [address] 6,000 Units Capsule (Lipase/Amylase/Protease) 1 Ea Cap 1 Ea PO TIDWM 30 Days 6,000-19,000-30,000 UNITS. TAKE 1 CAPSULE PO TID W MEALS Retacrit (Epoetin Tiago-Epbx) 10,000 Unit/1 Ml Vial 10,000 Unit IJ [id number] 30 Days Prograf (Tacrolimus) 1 Mg Capsule 3 Mg PO BID 30 Days Prednisone 5 Mg Tablet 5 Mg PO DAILY 30 Days [Protonix Dr] 40 Tab 1 PO BID Ketoconazole 120 Ml Shampoo 120 Ml TP HS 30 Days APPLY TOPICALLY TO CHEST & BACK ON DAMP SKIN, LATHER, LEAVE ON 5 MINUTES, & RINSE Ketoconazole 15 Gm Cream..g. 15 Gm TP BID TO FACE UNTIL R 30 Days Vitamin D3 (Cholecalciferol (Vitamin D3)) 50 Mcg Capsule 50 Mcg PO DAILY 30 Days Calcitrate (Calcium Citrate) 200 Mg Tablet 950 Mg PO 4 TABLETS PO W MEALS 30 Days Rocaltrol (Calcitriol) 0.5 Mcg Capsule 0.5 Mcg PO 2 CAPSULES PO BID 30 Days Zyloprim (Allopurinol) 100 Mg Tablet 50 Mg PO DAILY 30 Days Vitamin A & D Ointment (Petrolatum,White/Lanolin) 113 Gm Oint...g. 113 Gm TP PRN 30 Days Sodium Bicarbonate 650 Mg Tablet 650 Mg PO TID 30 Days Keppra (Levetiracetam) 500 Mg Tablet 500 Mg PO BID 30 Days Instructions to patient/family Please see electronic discharge instructions given to patient. Diagnosis/Problems Diagnosis/Problems (1) Myopathy (2) Seizure (3) Chronic diarrhea (4) Hypocalcemia (5) Renal transplant recipient (6) PKD (polycystic kidney disease) (7) Intellectual disability (8) Hypomagnesemia (9) Anemia (10) Buttock wound (11) Port-A-Cath in place (12) Cachexia (13) Vitamin D deficiency (14) Steroid dependence ORAL RIVERA DO Jan 06, 2021 09:09
--- NOTE | 2021-01-06 09:20 | Speech Therapy Daily Note ---
Speech Daily Progress Note Subjective Date Seen by Provider: Jan 06, 2021 Time Seen by Provider: 00:10 Patient is excited to be returning to his home today. Objective Patient completed a series of q/a related to his return home and work. Assessment Assessment Current Status: Good Progress Treatment Plan Discontinue ST, Goals Met Speech Short Term Goals Short Term Goals Short Term Goals 1) Patient will complete safety awareness tasks related to his daily needs with 80% or greater with minimal cuing. 2) Patient will complete cognitive tasks at his intellectual level with 80% or greater with minimal cuing. Speech Track Oiler Goals Fpc Goals Patient will improve his cognitive-communication skills in order to return to his prior level of function. Speech-Plan Patient/Family Goals Patient/Family Goals: Patient is returning to his home where he lives with his brother and family. Treatment Plan Speech Therapy Treatment Plan: Discontinue ST, Goals Met Treatment Duration: Jan 09, 2021 Frequency: 4 times per week (Patient will receive skilled ST 4-5x per week) Estimated Hrs Per Day: .5 hour per day Rehab Potential: Good Barriers to Learning: Patient's recent critical illness/recovery, mild intellectual challenge Pt/Family Agrees to Plan: Yes Safety Risks/Education Teaching Recipient: Patient Teaching Methods: Demonstration, Discussion Response to Teaching: Verbalize Understanding, Return Demonstration Education Topics Provided: Continued safety and communication at home Time Speech Therapy Time In: 09:00 Speech Therapy Time Out: 09:10 Total Billed Time: 10 Billed Treatment Time 1, SLTS No QUALITY CODES: EXPRESSION OF IDEAS/WANTS: 4 UNDERSTANDING VERBAL CONTENT: 4 BRIEF INTERVIEW MENTAL STATUS: YES REPETITION OF 3 WORDS: 3 TEMPORAL ORIENTATION: YEAR: CORRECT, MONTH: CORRECT, DAY: CORRECT RECALL SOCK: YES WITH CUE, COLOR: YES WITH CUE, BED: YES WITH CUE MEMORY/RECALL ABILITY: SEASON, WHERE HIS ROOM, STAFF NAMES, THAT HE IS IN THE HOSPITAL CHARAN KEITA Jan 06, 2021 09:20
--- NOTE | 2021-01-06 09:23 | Therapy Team Discharge Summary ---
Therapy Discharge Summary Discharge Recommendations Date of Discharge Occupational Therapy Decreased Activ Tolerance, Impaired Cognition Speech-Language Pathology Patient was admitted to the NHU s/p critical illness for recovery. Patient received skilled ST with focus on improving safety awareness and cognitive to baseline. Patient progressed and met all goals. He is returning to his home where he lives with his brother and family today. PT Software Engineer Sales Goals Software Engineer Sales Goals PT Software Engineer Sales Goals Time Frame: Jan 19, 2021 Roll Left to Right (QC): 6 Sit to Lying (QC): 6 Lying-Sitting on Side/Bed(QC): 6 Sit to Stand (QC): 6 Chair/Tbd-wh-Cfefy Xfer(QC): 6 Car Transfer (QC): 6 Does the Patient Walk: Yes Walk 10 feet (QC): 6 Walk 10ft-Uneven Surface(QC): 6 Walk 50ft with 2 Turns (QC): 6 Walk 150 ft (QC): 6 Does the Pt use WC or Scooter?: No Wheel 50 feet with 2 turns (QC: 9 1 Step (curb) (QC): 6 4 Steps (QC): 6 12 Steps (QC): 4 Picking up an Object (QC): 4 OT Fdc Goals Fdc Goals Time Frame: Jan 16, 2021 Eating (QC): 6 (met) Oral Hygiene (QC): 6 (met) Shower/Bathe Self (QC): 6 (met) Upper Body Dressing (QC): 6 (met) Lower Body Dressing (QC): 6 (met) On/Off Footwear (QC): 6 (met) Toileting Hygiene (QC): 6 (met) Toilet/Commode Transfer (QC): 6 Additional Goals: 1-Demonstrate ADL Tasks, 2-Verbalize Understanding, 3- ImproveStrength/Berta 1=Demonstrate adherence to instructed precautions during ADL tasks. 2=Patient will verbalize/demonstrate understanding of assistive devices/modifications for ADL. 3=Patient will improve strength/tolerance for activity to enable patient to perform ADL's. Speech Software Engineer Sales Goals Software Engineer Sales Goals Patient will improve his cognitive-communication skills in order to return to his prior level of function. CHARAN KEITA Jan 06, 2021 09:23
--- NOTE | 2021-01-06 09:38 | Physical Therapy Daily Note ---
PT Daily Note-Current Subjective Pt agreeable to a short visit. Transfers SCALE: Activities may be completed with or without assistive devices. 9-Pxnbmatkai-qslbnnf completes the activity by him/herself with no assistance from a helper. 5-Set-up or Clean-up Assistance-helper sets up or cleans up; patient completes a ctivity. Patterson assists only prior to or following the activity. 4-Supervision or Touching Assistance-helper provides verbal cues and/or touching/steadying and/or contact guard assistance as patient completes activity. Assistance may be provided throughout the activity or intermittently. 3-Partial/Moderate Assistance-helper does LESS THAN HALF the effort. Patterson lifts, holds or supports trunk or limbs, but provides less than half the effort. 2-Substantial/Maximal Assistance-helper does MORE THAN HALF the effort. Patterson lifts or holds trunk or limbs and provides more than half the effort. 9-Vpnxgturk-efxgik does ALL the effort. Patient does none of the effort to complete the activity. Or, the assistance of 2 or more helpers is required for the patient to complete the activity. If activity was not attempted, code reason: 7-Patient Refused. 9-Not Applicable-not attempted and the patient did not perform the activity before the current illness, exacerbation or injury. 10-Not Attempted due to Environmental Limitations-(lack of equipment, weather restraints, etc.). 88-Not Attempted due to Medical Conditions or Safety Concerns. Weight Bearing Right Lower Extremity: Right Full Weight Bearing Left Lower Extremity: Left Full Weight Bearing Gait Training Walk 10 feet (QC): 6 Walk 50 ft with 2 Turns(QC): 6 Walk 150 ft (QC): 6 Stair Training 1 Step (curb) (QC): 5 4 Steps (QC): 5 12 Steps (QC): 7 Stairs: Pattern: Reciprocal slow pattern and uses B handrails. Reports he is fearful of the steps. Able to complete with only set up kamini.t Balance Picking up an Object (QC): 4 (CGA for safety with cues for safety. ) Assessment Current Status: Good Progress He was safe on the steps. PT Short Term Goals Short Term Goals Time Frame: Jan 05, 2021 Sit to lyin Lying to sitting on side of be: 5 Sit to stand: 4 Chair/quj-vc-pzwtz transfer: 4 Walk 150 feet: 4 4 steps: 4 PT Mcfp Goals Mcfp Goals PT Mcfp Goals Time Frame: Jan 19, 2021 Roll Left & Right (QC): 6 Sit to Lying (QC): 6 Lying-Sitting on Side/Bed(QC): 6 Sit to Stand (QC): 6 Chair/Pkg-er-Rsgdj Xfer(QC): 6 Toilet Transfer (QC): 6 Car Transfer (QC): 6 Does the Patient Walk: Yes Walk 10 feet (QC): 6 Walk 50ft with 2 Turns (QC): 6 Walk 150 ft (QC): 6 Walking 10ft on Uneven Surface: 6 1 Step (curb) (QC): 6 4 Steps (QC): 6 12 Steps (QC): 4 Picking up an Object (QC): 4 Does the Pt use WC or Scooter?: No Wheel 50 feet with 2 turns (QC: 9 Wheel 150 feet: 9 PT Plan Problem List Problem List: Activity Tolerance, Functional Strength, Safety Treatment/Plan Treatment Plan: Continue Plan of Care (plan to discharge later this date. ) Treatment Plan: Bed Mobility, Education, Functional Activity Berta, Functional Strength, Group Therapy, Gait, Safety, Therapeutic Exercise, Transfers Treatment Duration: Jan 19, 2021 Frequency: At least 5 of 7 days/Wk (IRF) Estimated Hrs Per Day: 1.5 hours per day (1 to 1. 5) Patient and/or Family Agrees t: Yes Time/GCodes Time In: 910 Time Out: 925 Total Billed Treatment Time: 15 Total Billed Treatment visit GT 15 DEJON BRYSON PT Jan 06, 2021 09:38
--- NOTE | 2021-01-06 12:06 | Therapy Team Discharge Summary ---
Therapy Discharge Summary Discharge Recommendations Date of Discharge Occupational Therapy Pt admitted to ARU with Toxic Metabolic Encephalopathy. At PLOF, pt was independent wtih bathing, dressing, and toileting, assistance with cooking and cleaning. Pt was independent with functional mobility without AD. Upon initial evaluation, pt was independent with eating, required SBA with oral care, min A showering, set up assist upper/lower body dressing, set up footwear and min A toileting. OT txs focused on increasing safety and independence with ADLs and functional mobility, as well as increase BUE strength and activity tolerance. At discharge pt was independent with all ADLS, meeting all LTGs. Pt to d/c from facility on this date, d/c from OT. Decreased Activ Tolerance, Impaired Cognition PT Vp Director Of Finance Goals Prison Goals PT Vp Director Of Finance Goals Time Frame: Jan 19, 2021 Roll Left to Right (QC): 6 Sit to Lying (QC): 6 Lying-Sitting on Side/Bed(QC): 6 Sit to Stand (QC): 6 Chair/Lqr-nb-Gemya Xfer(QC): 6 Car Transfer (QC): 6 Does the Patient Walk: Yes Walk 10 feet (QC): 6 Walk 10ft-Uneven Surface(QC): 6 Walk 50ft with 2 Turns (QC): 6 Walk 150 ft (QC): 6 Does the Pt use WC or Scooter?: No Wheel 50 feet with 2 turns (QC: 9 1 Step (curb) (QC): 6 4 Steps (QC): 6 12 Steps (QC): 4 Picking up an Object (QC): 4 OT Prison Goals Vp Director Of Finance Goals Time Frame: Jan 16, 2021 Eating (QC): 6 (met) Oral Hygiene (QC): 6 (met) Shower/Bathe Self (QC): 6 (met) Upper Body Dressing (QC): 6 (met) Lower Body Dressing (QC): 6 (met) On/Off Footwear (QC): 6 (met) Toileting Hygiene (QC): 6 (met) Toilet/Commode Transfer (QC): 6 Additional Goals: 1-Demonstrate ADL Tasks, 2-Verbalize Understanding, 3-ImproveStrength/Berta 1=Demonstrate adherence to instructed precautions during ADL tasks. 2=Patient will verbalize/demonstrate understanding of assistive devices/modifications for ADL. 3=Patient will improve strength/tolerance for activity to enable patient to perform ADL's. Speech Prison Goals Vp Director Of Finance Goals Patient will improve his cognitive-communication skills in order to return to his prior level of function. DAVID GONSALES OT Jan 06, 2021 12:06
[2021-01-06 17:03] VITALS: BP 101/70
== END 2021-01-06 16:50 | disposition home health service (06) | DRG 91 ==
LOC: EDBD 12:48
PROVIDERS: ADMIT Internal Medicine; ATTEND Internal Medicine
DX: G72.81 Critical illness myopathy (principal); J18.9 Pneumonia, unspecified organism; R64 Cachexia; Z68.1 Body mass index [BMI] 19.9 or less, adult; Z94.0 Kidney transplant status; E87.2 Acidosis; F70 Mild intellectual disabilities; G40.909 Epilepsy, unspecified, not intractable, without status epilepticus; E83.51 Hypocalcemia; E83.42 Hypomagnesemia; E55.9 Vitamin D deficiency, unspecified; K52.9 Noninfective gastroenteritis and colitis, unspecified; D64.9 Anemia, unspecified; L89.152 Pressure ulcer of sacral region, stage 2; N18.9 Chronic kidney disease, unspecified; I34.0 Nonrheumatic mitral (valve) insufficiency; Z79.52 Long term (current) use of systemic steroids
CPT/HCPCS: 36415; 71045; 80048; 80053; 81000; 83540; 83605; 83880; 84145; 85007; 85025; 85027; 87040; 87081; 87804; 93306

== ENCOUNTER 2021-04-28 02:34 | Emergency (ER) | payer MEDICARE, MEDICAID ==
[~2021-04-28] VITALS: Ht 172 cm; Wt 64.9 kg
[~2021-04-28 02:34] MED LIST: ALLO100T56 PO; CALC0.5C3 PO; CALC200T2 PO; CEFD300C3 PO; CHOL200074 PO; CREONC PO; EPOE10008 IJ; KETO120S13 TP; KETO15CR2 TP; LEVE500T99 PO; LNZ600T PO; MVI PO; NF-SODBICA PO; PETR113O TP; PRED5TAB PO; PROTONIX DR; PROTONIX DR PO; TACR1CAP24 PO; TERI202.4P SQ
[2021-04-28 03:02] LABS: BASOPHILS % (AUTO) 0 % (0-10); EOSINOPHILS # (AUTO) 0.2 10^3/uL (0.0-0.3); EOSINOPHILS % (AUTO) 1 % (0-10); HEMATOCRIT 37 % (40-54); HEMOGLOBIN 11.7 g/dL (13.3-17.7); LYMPHOCYTES # (AUTO) 0.9 10^3/uL (1.0-4.0); LYMPHOCYTES % (AUTO) 7 % (12-44); MEAN CORPUSCULAR HEMOGLOBIN 29 pg (25-34); MEAN CORPUSCULAR HGB CONC 32 g/dL (32-36); MEAN CORPUSCULAR VOLUME 91 fL (80-99); MEAN PLATELET VOLUME 11.5 fL (9.0-12.2); MONOCYTES % (AUTO) 8 % (0-12); NEUTROPHILS # (AUTO) 10.3 10^3/uL (1.8-7.8); NEUTROPHILS % (AUTO) 82 % (42-75); PLATELET COUNT 249 10^3/uL (130-400); WHITE BLOOD COUNT 12.6 10^3/uL (4.3-11.0)
[2021-04-28 03:11] LABS: ALBUMIN 4.2 GM/DL (3.2-4.5); POTASSIUM 3.9 MMOL/L (3.6-5.0)
[2021-04-28 03:13] LABS: BILIRUBIN,URINE NEGATIVE (NEGATIVE); CLARITY,URINE CLEAR; COLOR,URINE YELLOW; GLUCOSE, URINE (UA) NEGATIVE (NEGATIVE); KETONES,URINE NEGATIVE (NEGATIVE); LEUKOCYTE ESTERASE ,URINE TRACE (NEGATIVE); NITRITE,URINE NEGATIVE (NEGATIVE); PROTEIN,URINE 1+ (NEGATIVE)
[2021-04-28 03:14] LABS: TOTAL PROTEIN 8.4 GM/DL (6.4-8.2)
[2021-04-28 03:16] LABS: BILIRUBIN,TOTAL 0.7 MG/DL (0.1-1.0)
[2021-04-28 03:18] LABS: CREATININE SERUM 4.44 MG/DL (0.60-1.30)
[2021-04-28 03:20] LABS: MAGNESIUM 2.8 MG/DL (1.6-2.4)
[2021-04-28 03:28] LABS: EOSINOPHILS % (MANUAL) 3 %; LYMPHOCYTES % (MANUAL) 7 %; MONOCYTES % (MANUAL) 9 %; NEUTROPHILS % (MANUAL) 81 %
[2021-04-28 03:30] LABS: CALCIUM 20.5 MG/DL (8.5-10.1)
[2021-04-28 03:34] LABS: BACTERIA,URINE FEW /HPF
[2021-04-28] MEDS ORDERED: NS IV 1000 ML 1,000 ML IV SCH ×2 (03:45→04:30)
[2021-04-28] MEDS ORDERED: cefTRIAXone 1,000 MG in WATER (STERILE) FOR INJECTION 10 ML IV ONE (04:15)
[2021-04-28 04:16] LABS: FREE T4 (FREE THYROXINE) 1.08 NG/DL (0.70-1.48)
--- NOTE | 2021-04-28 04:32 | ED General ---
General Chief Complaint: General Problems/Pain Stated Complaint: NOT EATING,DEHYDRATION,KIDNEY TRANSPLANT Nursing Triage Note: PT ARRIVES VIA EMS TO ROOM SIX FROM A LTC FACILITY. STAFF ONSITE STATE THAT THE PT'S LOC HAS DETERIORATED SINCE 0 WHEN THEY CAME ON SHIFT, AND THAT PT HAS MENTIONED MUSCLE CRAMPS FREQUENTLY. PT HAS LONG STANDING HX OF ELECTROLYTE IMBALANCES. Source of Information: Patient, EMS, [facility] Records Exam Limitations: No Limitations ([facility] MADRIGAL MD) History of Present Illness Date Seen by Provider: Apr 28, 2021 Time Seen by Provider: 02:37 Initial Comments PatientThis 45-year-old retirement resident presents to the emergency room via EMS with complaints of weakness, muscle cramping, and diarrhea were sedated today. He has history of chronic diarrhea and malabsorption syndrome with prior episodes of electrolyte disturbances. He was unable to get up and walk around as he usually does today. He has chronic cognitive deficits and is reported to have a developmental status of a 5-year-old. He has reported to have had a renal transplant of unknown date. He is on antirejection medication. Denies any pain except pain at his "bottom" from the diarrhea. ([facility]UC MADRIGAL MD) Allergies and Home Medications Allergies Coded Allergies: No Known Allergies (Verified Allergy, Unknown, 12/28/20) Home Medications Allopurinol 100 Mg Tablet, 50 MG PO DAILY Prescribed by: ANDI DE LA TORRE on 12/28/20 1319 Calcitriol 0.5 Mcg Capsule, 0.5 MCG PO 2 CAPSULES PO BID Prescribed by: ANDI DE LA TORRE on 12/28/20 1322 Calcium Citrate 200 Mg Tablet, 950 MG PO 4 TABLETS PO W MEALS Prescribed by: ANDI DE LA TORRE on 12/28/20 1324 Cefdinir 300 Mg Capsule, 300 MG PO BID Prescribed by: ORAL RIVERA on 01/05/21 1321 Cholecalciferol (Vitamin D3) 50 Mcg Capsule, 50 MCG PO DAILY Prescribed by: ANDI DE LA TORRE on 12/28/20 1327 Epoetin Tiago-Epbx 10,000 Unit/1 Ml Vial, 10,000 UNIT IJ [id number]-OHF Prescribed by: ANDI DE LA TORRE on 12/28/20 1351 Ketoconazole 15 Gm Cream..g., 15 GM TP BID TO FACE UNTIL R Prescribed by: ANDI DE LA TORRE on 12/28/20 1331 Ketoconazole 120 Ml Shampoo, 120 ML TP HS APPLY TOPICALLY TO CHEST & BACK ON DAMP SKIN, LATHER, LEAVE ON 5 MINUTES, & RINSE Prescribed by: ANDI DE LA TORRE on 12/28/20 1337 Levetiracetam 500 Mg Tablet, 500 MG PO BID Prescribed by: ANDI DE LA TORRE on 12/28/20 1313 Linezolid 600 Mg Tablet, 600 MG PO BID Prescribed by: ORAL RIVERA on 01/05/21 1321 Lipase/Amylase/Protease 1 Ea Cap, 1 EA PO TIDWM 6,000-19,000-30,000 UNITS. TAKE 1 CAPSULE PO TID W MEALS Prescribed by: ANDI DE LA TORRE on 12/28/20 1403 Petrolatum,White/Lanolin 113 Gm Oint...g., 113 GM TP PRN Prescribed by: ANDI DE LA TORRE on 12/28/20 1318 Prednisone 5 Mg Tablet, 5 MG PO DAILY Prescribed by: ANDI DE LA TORRE on 12/28/20 1342 Sodium Bicarbonate 650 Mg Tablet, 650 MG PO TID Prescribed by: ANDI DE LA TORRE on 12/28/20 1318 Tacrolimus 1 Mg Capsule, 3 MG PO BID Prescribed by: ANDI DE LA TORRE on 12/28/20 1345 Teriparatide 600 Mcg/2.4 Ml Syr, 20 MCG SQ DAILY Prescribed by: MARTINEZ RUBI on 12/28/20 1629 [Mvi] , 1 TAB PO DAILY Prescribed by: ANDI DE LA TORRE on 12/28/20 1406 [Protonix Dr] 40 TAB, 1 PO BID Prescribed by: ANDI DE LA TORRE on 12/28/20 1341 Patient Home Medication List Home Medication List Reviewed: Yes ([facility]UC MADRIGAL MD) Review of Systems Review of Systems Constitutional: see HPI EENTM: no symptoms reported Respiratory: no symptoms reported Cardiovascular: no symptoms reported Gastrointestinal: see HPI Genitourinary: no symptoms reported Musculoskeletal: see HPI Skin: no symptoms reported Psychiatric/Neurological: See HPI Hematologic/Lymphatic: No Symptoms Reported Immunological/Allergic: no symptoms reported (PHUC MADRIGAL MD) Past Btzlfvk-Xxwjzc-Ficasl Hx Patient Social History Tobacco Use?: No Substance use?: No Alcohol Use?: No ([facility] MADRIGAL MD) Immunizations Up To Date Influenza Vaccine Up-to-Date: Yes; Up-to-Date ([facility] MADRIGAL MD) Past Medical History Surgeries: Yes Kidney Transplant Respiratory: No Cardiac: No Neurological: Yes Developmental Disorder, Seizure Disorder Genitourinary: Yes Renal Failure, Dialysis, Polycystic Kidney Disease Gastrointestinal: Yes Chronic Diarrhea Musculoskeletal: Yes Endocrine: No HEENT: No Cancer: No Psychosocial: No ([facility]UC MADRIGAL MD) Physical Exam Vital Signs Vital Signs - First Documented 04/28/21 02:34 Temp 36.3 Pulse 85 Resp 20 B/P (MAP) 138/105 (116) Pulse Ox 95 O2 Delivery Room Air (KATE ZUNIGA DO) Vital Signs Capillary Refill : Less Than 3 Seconds ([facility]UC MADRIGAL MD) Height, Weight, BMI Height: '" Weight: lbs. oz. kg; 21.00 BMI Method: General Appearance: No Apparent Distress, Mild Distress (Appears uncomfortable), Thin HEENT: PERRL/EOMI, Other (Mucous membranes very dry) Neck: Normal Inspection Respiratory: Lungs Clear, Normal Breath Sounds, No Accessory Muscle Use Cardiovascular: Regular Rate, Rhythm, No Edema, No Murmur, Normal Peripheral Pulses Gastrointestinal: Normal Bowel Sounds, Non Tender, Soft Extremity: Normal Inspection Neurologic/Psychiatric: Alert, No Motor/Sensory Deficits, Normal Mood/Affect Skin: Normal Color, Warm/Dry ([facility]UC MADRIGAL MD) Focused Exam Lactate Level 04/28/21 05:00: Lactic Acid Level 0.70 (KATE ZUNIGA DO) Lactic Acid Level Laboratory Tests Test 04/28/21 05:00 Lactic Acid Level 0.70 MMOL/L (0.50-2.00) (KATE ZUINGA DO) Progress/Results/Core Measures Suspected Sepsis SIRS Temperature: Pulse: 85 Respiratory Rate: 20 Laboratory Tests 04/28/21 02:43: White Blood Count 12.6H Blood Pressure 138 /105 Mean: 116 04/28/21 05:00: Lactic Acid Level 0.70 Laboratory Tests 04/28/21 02:43: Creatinine 4.44H, Platelet Count 249, Total Bilirubin 0.7 04/28/21 08:56: INR Comment 1.0 ([facility]UC MADRIGAL MD) Results/Orders Lab Results Laboratory Tests Test 04/28/21 02:43 04/28/21 02:45 04/28/21 03:02 04/28/21 05:00 Range/Units White Blood Count 12.6 H 4.3-11.0 10^3/uL Red Blood Count 4.02 L 4.30-5.52 10^6/uL Hemoglobin 11.7 L 13.3-17.7 g/dL Hematocrit 37 L 40-54 % Mean Corpuscular Volume 91 80-99 fL Mean Corpuscular Hemoglobin 29 25-34 pg Mean Corpuscular Hemoglobin Concent 32 32-36 g/dL Red Cell Distribution Width 14.1 10.0-14.5 % Platelet Count 249 130-400 10^3/uL Mean Platelet Volume 11.5 9.0-12.2 fL Immature Granulocyte % (Auto) 1 % Neutrophils (%) (Auto) 82 H 42-75 % Lymphocytes (%) (Auto) 7 L 12-44 % Monocytes (%) (Auto) 8 0-12 % Eosinophils (%) (Auto) 1 0-10 % Basophils (%) (Auto) 0 0-10 % Neutrophils # (Auto) 10.3 H 1.8-7.8 10^3/uL Lymphocytes # (Auto) 0.9 L 1.0-4.0 10^3/uL Monocytes # (Auto) 1.0 0.0-1.0 10^3/uL Eosinophils # (Auto) 0.2 0.0-0.3 10^3/uL Basophils # (Auto) 0.0 0.0-0.1 10^3/uL Immature Granulocyte # (Auto) 0.1 0.0-0.1 10^3/uL Neutrophils % (Manual) 81 % Lymphocytes % (Manual) 7 % Monocytes % (Manual) 9 % Eosinophils % (Manual) 3 % Percent Immature Platelet Fraction 5.6 0.0-7.6 % Sodium Level 134 L 135-145 MMOL/L Potassium Level 3.9 3.6-5.0 MMOL/L Chloride Level 87 L 98-107 MMOL/L Carbon Dioxide Level 33 H 21-32 MMOL/L Anion Gap 14 5-14 MMOL/L Blood Urea Nitrogen 85 H 7-18 MG/DL Creatinine 4.44 H 0.60-1.30 MG/DL Estimat Glomerular Filtration Rate 14 BUN/Creatinine Ratio 19 Glucose Level 158 H 70-105 MG/DL Calcium Level 20.5 *H 8.5-10.1 MG/DL Corrected Calcium 20.3 H 8.5-10.1 MG/DL Magnesium Level 2.8 H 1.6-2.4 MG/DL Total Bilirubin 0.7 0.1-1.0 MG/DL Aspartate Amino Transf (AST/SGOT) 10 5-34 U/L Alanine Aminotransferase (ALT/SGPT) 10 0-55 U/L Alkaline Phosphatase 74 40-136 U/L Total Creatine Kinase 47 30-200 U/L Total Protein 8.4 H 6.4-8.2 GM/DL Albumin 4.2 3.2-4.5 GM/DL Thyroid Stimulating Hormone (TSH) 0.87 0.35-4.94 UIU/ML Free Thyroxine 1.08 0.70-1.48 NG/DL Urine Color YELLOW Urine Clarity CLEAR Urine pH 7.0 5-9 Urine Specific [place] 1.015 L 1.016-1.022 Urine Protein 1+ H NEGATIVE Urine Glucose (UA) NEGATIVE NEGATIVE Urine Ketones NEGATIVE NEGATIVE Urine Nitrite NEGATIVE NEGATIVE Urine Bilirubin NEGATIVE NEGATIVE Urine Urobilinogen 0.2 < = 1.0 MG/DL Urine Leukocyte Esterase TRACE H NEGATIVE Urine RBC (Auto) 1+ H NEGATIVE Urine RBC 2-5 H /HPF Urine WBC 10-25 H /HPF Urine Crystals NONE /LPF Urine Bacteria FEW H /HPF Urine Casts NONE /LPF Urine Mucus NEGATIVE /LPF Urine Culture Indicated YES Lactic Acid Level 0.70 0.50-2.00 MMOL/L Test 04/28/21 08:56 Range/Units Prothrombin Time 13.1 12.2-14.7 SEC INR Comment 1.0 0.8-1.4 Activated Partial Thromboplast Time 28 24-35 SEC (KATE ZUNIGA DO) My Orders Orders - KATE ZUNIGA DO O2 (04/28/21 14:09) Morphine Injection (Morphine Injection (04/28/21 14:15) Heart Healthy (04/28/21 Lunch) Morphine Injection (Morphine Injection (04/28/21 14:25) (KATE ZUNIGA DO) Medications Given in ED (KATE ZUNIGA DO) Vital Signs/I&O 04/28/21 04/28/21 04/28/21 02:34 05:15 17:41 Temp 36.3 36.3 Pulse 85 76 73 Resp 20 20 20 B/P (MAP) 138/105 (116) 138/105 132/100 (116) Pulse Ox 95 95 99 O2 Delivery Room Air Room Air Room Air (KATE ZUNIGA DO) Vital Signs/I&O Capillary Refill : Less Than 3 Seconds ([facility]UC MADRIGAL MD) Blood Pressure Mean: 116 Progress Note : Time: 06:05 Progress Note Patient is receiving 2 L of IV normal saline. There was consideration for admission to this facility, but because he is a transplant patient we will pursue transfer to [facility]. Case was discussed with Dr. Flores. [facility] does not have any beds available at this time so we will continue to monitor him in the ER and check bed availability later in the morning. [facility] indicated they will call back when a bed opens. Patient is also received Rocephin for evidence of urinary tract infection. Patient's hypercalcemia is likely secondary to both dehydration and exogenous calcium ingestion. (PHUC MADRIGAL MD) Progress Note : Progress Note 0600--ASSUMED CARE FROM DR. MADRIGAL, TRANSFER PENDING PT IS SLEEPING SOUNDLY THROUGHOUT MOST OF THE DAY. VITALS STABLE PT DID COMPLAIN OF PAIN-MOSTLY IN BACK/BUTTOCKS , AND MORPHINE GIVEN WITH SOME IMPROVEMENT NO DETERIORATION IN PT'S CONDITION DURING ER STAY (KATE ZUNIGA DO) Diagnostic Imaging Diagonstic Imaging: Xray Plain Films/CT/US/NM/MRI: chest Comments Chest x-ray viewed by me. No significant acute changes appreciated. Report not yet available. (PHUC MADRIGAL MD) Departure Communication (Admissions) Time/Spoke to Admitting Phy: 04:20 Dr. Flores ([facility]UC MADRIGAL MD) 1144--CALLED [facility]. STILL WAITING FOR BED ASSIGNMENT FROM . THEY ADVISE TO CALL BACK IN A FEW HOURS. 1657--CALLED [facility], THEY HAVE BED ASSIGNMENT -- [phone]. PT HAD PREVIOUSLY BEEN ACCEPTED BY A PHYSICIAN, AND TRANSFER PAPERS HAVE ALREADY BEEN FILLED OUT BY DR. MADRIGAL (KATE ZUNIGA DO) Impression Primary Impression: Acute on chronic kidney failure Qualified Codes: N17.9 - Acute kidney failure, unspecified; N18.9 - Chronic kidney disease, unspecified Additional Impressions: Dehydration Hypercalcemia Urinary tract infection Qualified Codes: N39.0 - Urinary tract infection, site not specified Renal transplant recipient Intellectual disability Disposition: 02 XFER SHT-TRM HOSP Condition: Stable Admissions Decision to Admit Reason: Admit from ER (General) Decision to Admit/Date: Apr 28, 2021 Time/Decision to Admit Time: 04:20 ([facility]UC MADRIGAL MD) Transfer Transfer Time: 17:44 ([facility] MADRIGAL MD) Transfer Reason: Exceeds level of care Transfer Facility: Method of Transfer: EMS (KATE ZUNIGA DO) Departure-Patient Inst. Referrals: NO,LOCAL PHYSICIAN (PCP) Primary Care Physician MIGUELANGEL BIGGS MD (Family) Primary Care Physician Copy Copies To 1: BING HAMMOND JOSHUA T MD Apr 28, 2021 04:32 KATE ZUNIGA DO Apr 28, 2021 16:18
[2021-04-28] MEDS ORDERED: WATER (STERILE) FOR INJECTION 10 ML ONE (04:35)
--- NOTE | 2021-04-28 07:03 | Diagnostic Imaging Report ---
EXAMINATION: Chest radiograph, portable AP view. DATE: 04/28/2021 4:19 AM INDICATION: 45-year-old male, hypercalcemia. COMPARISON: January 03, 2021. FINDINGS: There is a right-sided port catheter with tip overlying the mid SVC. Stable overall appearance of the cardiomediastinal silhouette. There is no identified pneumothorax. There is no large pleural effusion. There is no identified focal airspace consolidation. IMPRESSION: 1. No identified acute cardiopulmonary abnormality. Dictated by: Dictated on workstation # [id number]
[2021-04-28 09:22] LABS: PROTHROMBIN TIME PATIENT 13.1 SEC (12.2-14.7)
[2021-04-28] MEDS ORDERED: morphine INJ 10 MG/ML 1ML (SYR OR VIAL) IVP ONE (14:15)
[2021-04-28] MEDS ORDERED: morphine INJ 10 MG/ML 1ML (SYR OR VIAL) IVP STA (14:25)
[2021-04-28 17:41] VITALS: BP 132/100
== END 2021-04-28 17:44 | disposition short-term general hospital (02) ==
LOC: EDUNIT# 02:34 → ER 02:37
DX: N17.9 Acute kidney failure, unspecified (principal); N18.9 Chronic kidney disease, unspecified; E86.0 Dehydration; E83.52 Hypercalcemia; N39.0 Urinary tract infection, site not specified; F79 Unspecified intellectual disabilities; G40.909 Epilepsy, unspecified, not intractable, without status epilepticus; Z94.0 Kidney transplant status; Z79.52 Long term (current) use of systemic steroids; Z79.899 Other long term (current) drug therapy
CPT/HCPCS: 36415; 71045; 80053; 81000; 82306; 82330; 82550; 83605; 83735; 83970; 84155; 84165; 84439; 84443; 85007; 85027; 85610; 85730; 87040; 87088